=== PATIENT | male | born 1945 | race Caucasian/White ===

== ENCOUNTER 2020-01-03 14:26 | Outpatient (CLI) | payer MEDICARE, BC, SELFPAY ==
[2020-01-03 14:52] LABS: Basophils Absolute Auto 0.1 K/mm3 (0.0-0.1); Basophils Percent Auto 0.5 % (0.2-1.2); Eosinophils Absolute Auto 0.2 K/mm3 (0-0.3); Eosinophils Percent Auto 1.5 % (0-4.4); Hemoglobin 14.1 g/dL (14.0-18.0); Immature Granulocyte Absolute 0.04 K/mm3 (0.00-0.031); Immature Granulocyte Percent A 0.4 % (0-0.5); Lymphocytes Absolute Auto 2.41 K/mm3 (0.9-3.2); Mean Corpuscular Hemoglobin 29.6 pg (26-34); Mean Corpuscular Volume 92.2 fl (80-100); Mean Platelet Volume 10.6 fl (7.4-10.4); Monocytes Absolute Auto 0.9 K/mm3 (0.1-0.6); Monocytes Percent Auto 9.2 % (2.6-8.5); Neutrophils Absolute Auto 6.5 K/mm3 (1.3-6.7); Neutrophils Percent Auto 64.4 % (45.5-73.1); Platelet Count Result 142 k/mm3 (150-375); Red Blood Count 4.77 M/mm3 (4.6-6.20); Red Cell Distribution Width 13.8 % (11.5-14.5)
[2020-01-03 16:39] LABS: INR 3.1; Prothrombin Time 31.6 Seconds (11.1-14.7)
[2020-01-03 16:40] LABS: Partial Thromboplastin Time 36.3 SECONDS (22.3-36.8)
[2020-01-03 16:54] LABS: Alanine Aminotransferase 15 U/L (4-50); Albumin Level 3.8 g/dL (3.5-5.1); Alkaline Phosphatase 65 U/L (38-126); Aspartate Amino Transferase 19 U/L (17-59); Bilirubin,Total 0.3 mg/dL (0.2-1.3); Blood Urea Nitrogen 16 mg/dL (9-20); Calcium 8.7 mg/dL (8.4-10.2); Carbon Dioxide 29 mmol/L (22-30); Chloride 105 mmol/L (98-107); Estimated Glomerular Filt Rate > 60; Glucose 98 mg/dL (75-110); Potassium 4.8 mmol/L (3.4-5.0); Sodium 146 mmol/L (137-145)
== END 2020-01-03 14:27 | disposition home or self-care (01) ==
PROVIDERS: PCP Internal Medicine; Visit Provider Internal Medicine Hematology & Oncology
DX: D69.9 Hemorrhagic condition, unspecified (principal)
CPT/HCPCS: 36415; 80053; 85025; 85610; 85730

== ENCOUNTER 2020-01-09 09:20 | Outpatient (CLI) | payer MEDICARE, BC, SELFPAY ==
[2020-01-09 10:26] LABS: Prothrombin Time 13.1 Seconds (11.1-14.7)
== END 2020-01-09 09:21 | disposition home or self-care (01) ==
PROVIDERS: PCP Internal Medicine; Visit Provider Internal Medicine Gastroenterology
DX: D68.8 Other specified coagulation defects (principal)
CPT/HCPCS: 36415; 85610; 85730

== ENCOUNTER 2020-01-10 00:12 | Day surgery (SDC) | payer MEDICARE, BC, SELFPAY ==
[2020-01-05 13:47] VITALS: BMI 41.8
[2020-01-10 07:00] VITALS: BP 181/72; PULSE 59; RESP 18; TEMP 37.1; O2SAT 92
--- NOTE | 2020-01-10 07:04 | PM.HPGS ---
History of Present Illness History of Present Illness Consent: Risks, benefits, and alternatives have been discussed and questions answered. Patient agrees to proceed with procedure. Chief complaint: Gerd/ Hx Colon Polyps Narrative: Dhaval Cox is a 74 year old W male referred for gastroscopy secondary to history of chronic heartburn and has had previous diagnosis of Gaxiola's metaplasia. However last gastroscopy 2015 was negative for Gaxiola's. Patient's symptoms are controlled on Nexium. Denies any dysphagia. Patient is undergoing a colonoscopy secondary history of colonic polyps and his last colonoscopy was in 2012. Patient has had multiple medical problems which time he has deferred follow-up colonoscopy. Patient's most recent evaluations pulmonary in nature for evaluation hemoptysis. [facility] Surgical History Surgical History (Updated 01/10/20 @ 07:08 by Chris Toledo MD) History of sinus surgery Status post appendectomy Status post cholecystectomy Status post laparoscopic fundoplication Family History Family History Father Family history of lung disease, Onset Age: 84 Patient's father is , Onset Age: 84 Mother Family history of heart disease in male family member before age 55 Patient's mother is , Onset Age: 64 Family history of cardiovascular disease, Onset Age: 64 Social History Social History Smoking status: Former smoker Smoking end date: 11/15/04 Alcohol intake: current Meds Home Medications and Allergies Home Medications Medication Instructions Recorded Confirmed Type candesartan 32 mg tablet 32 mg PO DAILY 09/11/19 01/05/20 History etanercept 50 mg/mL (1 mL) 50 mg SUB-Q WEEKLY 09/11/19 01/05/20 History subcutaneous syringe furosemide 40 mg tablet 40 mg PO DAILY tablet 09/11/19 01/05/20 History gabapentin 300 mg capsule 300 mg PO TID 09/11/19 01/05/20 History hydrocodone 10 mg-acetaminophen 1 tablet PO Q6H PRN 09/11/19 01/05/20 History 325 mg tablet felodipine 10 mg tablet,extended 10 mg PO DAILY #90 tablet 10/09/19 01/05/20 Rx release 24 hr linagliptin 5 mg tablet 5 mg PO DAILY #90 tablet 10/16/19 01/05/20 Rx warfarin 5 mg tablet 5 mg PO DAILY tablet 11/17/19 01/05/20 History esomeprazole magnesium 40 mg 40 mg PO DAILY #90 cap 12/13/19 01/05/20 Rx capsule,delayed release pravastatin 20 mg tablet 20 mg PO DAILY #90 tablet 12/13/19 01/05/20 Rx metoprolol succinate 100 mg 100 mg PO DAILY #90 tablet 01/09/20 Rx tablet,extended release 24 hr Allergies Allergy/AdvReac Type Severity Reaction Status Date / Time No Known Allergies Allergy Verified 01/10/20 07:03 Exam Const: Orientation/consciousness: patient oriented x3 Resp: Auscultation: clear to auscultation bilaterally Cardio: Rate: regular rate Rhythm: regular rhythm Heart sounds: no murmurs GI: GI Palp: Yes Soft to palpation, No Tenderness to palpation present (GI), Yes No hepatosplenomegaly present and No Palpable mass present Auscultation: normal bowel sounds Neuro: General: patient oriented x3 and no focal motor deficits Extrem: General: no pedal edema Assessment and Plan Additional Plan gastroscopy for follow-up of Gaxiola's metaplasia screening colonoscopy secondary history of colonic polyps
--- NOTE | 2020-01-10 07:20 | WPDANESEPPF ---
Anes - Initial Pre Proc Eval Procedure: Operation Date: 01/10/20 08:00 Proposed Procedures p Esophagogastroduodenoscopy & Screening Colonoscopy - Chris Toledo MD Date/Time: 01/10/20 07:20 Surgeon: Chris Toledo MD Pre Op Diagnosis: Gerd/ Hx Colon Polyps Patient Data Age: 74 Gender: M Height: 6 ft Weight: 143.9 kg Allergies Allergy/AdvReac Type Severity Reaction Status Date / Time No Known Allergies Allergy Verified 01/10/20 07:03 Home Medications Medication Instructions Recorded Confirmed Type candesartan 32 mg tablet 32 mg PO DAILY 09/11/19 01/05/20 History etanercept 50 mg/mL (1 mL) 50 mg SUB-Q WEEKLY 09/11/19 01/05/20 History subcutaneous syringe furosemide 40 mg tablet 40 mg PO DAILY tablet 09/11/19 01/05/20 History gabapentin 300 mg capsule 300 mg PO TID 09/11/19 01/05/20 History hydrocodone 10 mg-acetaminophen 1 tablet PO Q6H PRN 09/11/19 01/05/20 History 325 mg tablet felodipine 10 mg tablet,extended 10 mg PO DAILY #90 tablet 10/09/19 01/05/20 Rx release 24 hr linagliptin 5 mg tablet 5 mg PO DAILY #90 tablet 10/16/19 01/05/20 Rx warfarin 5 mg tablet 5 mg PO DAILY tablet 11/17/19 01/05/20 History esomeprazole magnesium 40 mg 40 mg PO DAILY #90 cap 12/13/19 01/05/20 Rx capsule,delayed release pravastatin 20 mg tablet 20 mg PO DAILY #90 tablet 12/13/19 01/05/20 Rx metoprolol succinate 100 mg 100 mg PO DAILY #90 tablet 01/09/20 Rx tablet,extended release 24 hr Patient hx anesthesia problems: none Family hx anesthesia problems: none PMFSH Surgical History Surgical History History of sinus surgery Status post appendectomy Status post cholecystectomy Status post laparoscopic fundoplication Family History Family History Father Family history of lung disease, Onset Age: 84 Patient's father is , Onset Age: 84 Mother Family history of heart disease in male family member before age 55 Patient's mother is , Onset Age: 64 Family history of cardiovascular disease, Onset Age: 64 Social History Social History Smoking status: Former smoker Smoking end date: 11/15/04 Alcohol intake: current Anes - Eval Final PreProcedure Day of Procedure 01/10/20 07:20 Patient weight: morbidly obese Heart: regular rate and rhythm Lungs: clear to auscultation Airway: Mallampati scale class II Neurological: alert and oriented Last oral intake: >/= 8 hours ASA classification: III Emergent: no Anesthetic plan: proceed Anesthesia type and monitoring: general GIVS and standard monitoring Informed Consent: The patient's anesthetic plan and its attendant risks and benefits were discussed with the patient/family/POA. Questions were solicited and answers provided to the satisfaction of the patient/family/POA.
[2020-01-10 07:35] LABS: Glucose Point of Care 84 (65-105)
[2020-01-10] MEDS: LACTATED RINGERS 1,000 ML 150 ML IV CONT (07:38)
[2020-01-10] MEDS: BENZOCAINE (*SP) 60 ML SPRAY CAN (HURRICAINE) 1 SPRAY MUCOUS MEM (07:47)
[2020-01-10] MEDS: SIMETHICONE ORAL SUSPENSION 20 MG/0.3 ML 30 ML BOTTLE 0.6 ML IRRIGATION (07:50)
[2020-01-10 08:16] VITALS: BP 164/54; PULSE 55; RESP 23; O2SAT 97
[2020-01-10 08:26] VITALS: BP 121/58; PULSE 63; RESP 28; O2SAT 93
[2020-01-10 08:36] VITALS: BP 121/38; PULSE 54; RESP 21; O2SAT 93
== END 2020-01-10 08:52 | disposition home or self-care (01) ==
PROVIDERS: PCP Internal Medicine; Visit Provider Internal Medicine Gastroenterology
PROC: 0DJ08ZZ Inspection of Upper Intestinal Tract, Via Natural or Artificial Opening Endoscopic (ICD-10-PCS; CPT 43235; principal; 2020-01-10 08:00)
DX: Z12.11 Encounter for screening for malignant neoplasm of colon (principal); K64.8 Other hemorrhoids; K64.4 Residual hemorrhoidal skin tags; K57.30 Diverticulosis of large intestine without perforation or abscess without bleeding; Z86.010 Personal history of colon polyps; K21.0 Gastro-esophageal reflux disease with esophagitis; K29.50 Unspecified chronic gastritis without bleeding; Z87.19 Personal history of other diseases of the digestive system; Z87.891 Personal history of nicotine dependence; Z79.01 Long term (current) use of anticoagulants; E66.01 Morbid (severe) obesity due to excess calories; Z68.41 Body mass index [BMI] 40.0-44.9, adult
CPT/HCPCS: 43239; G0105; 88305; J2704; J7120

== ENCOUNTER 2020-01-16 08:34 | Outpatient (CLI) | payer MEDICARE, BC, SELFPAY ==
--- NOTE | ~2020-01-16 | US_ITS ---
EXAMINATION: US venous doppler LE RT DATE: 01/16/2020 09:25 INDICATION: Acute right lower limb deep vein thrombosis. TECHNIQUE: Grayscale ultrasound images without and with compression and Doppler ultrasound images of the right lower extremity veins were obtained. COMPARISON: None. FINDINGS: The visualized portions of right common femoral vein, profunda (deep) femoral vein, femoral vein, pop liteal vein, peroneal veins, posterior tibial veins, and greater saphenous vein outflow are patent. IMPRESSION: 1. No deep venous thrombosis. Reviewed, dictated and finalized at location A. 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
== END 2020-01-16 08:35 | disposition home or self-care (01) ==
PROVIDERS: PCP Internal Medicine; Visit Provider Internal Medicine Hematology & Oncology
DX: I82.4Y1 Acute embolism and thrombosis of unspecified deep veins of right proximal lower extremity (principal)
CPT/HCPCS: 93971

== ENCOUNTER 2020-04-25 11:01 | Outpatient (CLI) | payer MEDICARE, BC, SELFPAY ==
[2020-04-25 11:19] LABS: Basophils Absolute Auto 0.1 K/mm3 (0.0-0.1); Basophils Percent Auto 0.6 % (0.2-1.2); Eosinophils Absolute Auto 0.2 K/mm3 (0-0.3); Eosinophils Percent Auto 1.9 % (0-4.4); Hematocrit 45.2 % (42.0-52.0); Hemoglobin 14.2 g/dL (14.0-18.0); Immature Granulocyte Absolute 0.03 K/mm3 (0.00-0.031); Immature Granulocyte Percent A 0.3 % (0-0.5); Lymphocytes Absolute Auto 2.65 K/mm3 (0.9-3.2); Lymphocytes Percent Auto 28.5 % (18.3-44.2); Mean Corpuscular HGB Conc 31.4 g/dl (32-36); Mean Corpuscular Hemoglobin 29.8 pg (26-34); Mean Corpuscular Volume 94.8 fl (80-100); Mean Platelet Volume 10.3 fl (7.4-10.4); Monocytes Percent Auto 10.2 % (2.6-8.5); Neutrophils Absolute Auto 5.4 K/mm3 (1.3-6.7); Neutrophils Percent Auto 58.5 % (45.5-73.1); Platelet Count Result 150 k/mm3 (150-375); Red Blood Count 4.77 M/mm3 (4.6-6.20); Red Cell Distribution Width 13.5 % (11.5-14.5); White Blood Count 9.3 K/mm3 (4.5-10.0)
[2020-04-25 12:06] LABS: Alanine Aminotransferase 15 U/L (4-50); Alkaline Phosphatase 61 U/L (38-126); Aspartate Amino Transferase 18 U/L (17-59); Bilirubin,Total 0.5 mg/dL (0.2-1.3); Blood Urea Nitrogen 18 mg/dL (9-20); Carbon Dioxide 31 mmol/L (22-30); Chloride 107 mmol/L (98-107); Estimated Glomerular Filt Rate > 60; Glucose 100 mg/dL (75-110); Potassium 4.7 mmol/L (3.4-5.0); Sodium 143 mmol/L (137-145)
[2020-04-25 12:17] LABS: Hemoglobin A1C 5.6 % (<5.7)
== END 2020-04-25 11:02 | disposition home or self-care (01) ==
PROVIDERS: PCP Internal Medicine; Visit Provider Internal Medicine Hematology & Oncology
DX: I82.4Y1 Acute embolism and thrombosis of unspecified deep veins of right proximal lower extremity (principal); I10 Essential (primary) hypertension; E11.8 Type 2 diabetes mellitus with unspecified complications
CPT/HCPCS: 36415; 80053; 83036; 85025

== ENCOUNTER 2020-11-19 14:20 | Outpatient (CLI) | payer MEDICARE, BC, SELFPAY ==
[2020-11-19 14:45] LABS: Basophils Absolute Auto 0.1 K/mm3 (0.0-0.1); Basophils Percent Auto 0.5 % (0.2-1.2); Eosinophils Absolute Auto 0.2 K/mm3 (0-0.3); Eosinophils Percent Auto 1.9 % (0-4.4); Hematocrit 43.4 % (42.0-52.0); Hemoglobin 13.7 g/dL (14.0-18.0); Immature Granulocyte Absolute 0.04 K/mm3 (0.00-0.031); Immature Granulocyte Percent A 0.4 % (0-0.5); Lymphocytes Absolute Auto 2.69 K/mm3 (0.9-3.2); Mean Corpuscular HGB Conc 31.6 g/dl (32-36); Mean Corpuscular Hemoglobin 29.9 pg (26-34); Mean Corpuscular Volume 94.8 fl (80-100); Mean Platelet Volume 10.9 fl (7.4-10.4); Monocytes Absolute Auto 0.7 K/mm3 (0.1-0.6); Neutrophils Absolute Auto 5.6 K/mm3 (1.3-6.7); Neutrophils Percent Auto 60.2 % (45.5-73.1); Platelet Count Result 164 k/mm3 (150-375); Red Blood Count 4.58 M/mm3 (4.6-6.20); Red Cell Distribution Width 13.8 % (11.5-14.5); White Blood Count 9.3 K/mm3 (4.5-10.0)
[2020-11-19 16:09] LABS: Anion Gap 6 mmol/L (8-16); Blood Urea Nitrogen 21 mg/dL (9-20); Calcium 8.8 mg/dL (8.4-10.2); Carbon Dioxide 29 mmol/L (22-30); Chloride 110 mmol/L (98-107); Estimated Glomerular Filt Rate > 60; Glucose 107 mg/dL (75-110); Potassium 4.8 mmol/L (3.4-5.0); Sodium 145 mmol/L (137-145)
== END 2020-11-19 14:21 | disposition home or self-care (01) ==
LOC: ANHLAB 14:22
PROVIDERS: PCP Internal Medicine; Visit Provider Internal Medicine Hematology & Oncology
DX: I82.4Y1 Acute embolism and thrombosis of unspecified deep veins of right proximal lower extremity (principal)
CPT/HCPCS: 36415; 80048; 85025

== ENCOUNTER 2021-02-24 08:04 | Outpatient (CLI) | payer MEDICARE, BC, SELFPAY ==
--- NOTE | ~2021-02-24 | US_ITS ---
EXAMINATION: US retroperitoneal duplex ltd EXAM DATE: 02/24/2021 09:23 INDICATION: Essential hypertension. TECHNIQUE: Multiple grayscale and Doppler images of the kidneys and renal arteries were obtained. T here is no prior study for comparison. FINDINGS: Exam was limited from patient's body habitus. There are bilateral renal cysts. The aorta peak systolic velocity is 170 cm/s. Renal arteries interrogated in several segments from origin to hilum. RIGHT RENAL ARTERY Proximal segment: 136 cm/s. Mid segment: 139 cm/s. Distal segment: 174 cm/s. LEFT RENAL ARTERY Proximal segment: 137 cm/s. Mid segment: 147 cm/s. Distal segment: 76 cm/s. IMPRESSION: Renal artery Doppler velocities within normal limits. Reviewed, dictated and finalized at location A.
== END 2021-02-24 08:05 | disposition home or self-care (01) ==
LOC: ANHIMG 08:07
PROVIDERS: PCP Internal Medicine; Visit Provider Nurse Practitioner
DX: I10 Essential (primary) hypertension (principal)
CPT/HCPCS: 93976

== ENCOUNTER 2021-11-19 13:10 | Outpatient (CLI) | payer MEDICARE, BC, SELFPAY ==
[2021-11-19 13:31] LABS: Basophils Absolute Auto 0.1 K/mm3 (0.0-0.1); Basophils Percent Auto 0.6 % (0.2-1.2); Eosinophils Absolute Auto 0.1 K/mm3 (0-0.3); Eosinophils Percent Auto 1.4 % (0-4.4); Hematocrit 43.9 % (42.0-52.0); Hemoglobin 13.5 g/dL (14.0-18.0); Immature Granulocyte Absolute 0.06 K/mm3 (0.00-0.031); Immature Granulocyte Percent A 0.7 % (0-0.5); Lymphocytes Absolute Auto 2.43 K/mm3 (0.9-3.2); Lymphocytes Percent Auto 28.1 % (18.3-44.2); Mean Corpuscular HGB Conc 30.8 g/dl (32-36); Mean Corpuscular Hemoglobin 30.1 pg (26-34); Mean Platelet Volume 10.7 fl (7.4-10.4); Monocytes Absolute Auto 0.7 K/mm3 (0.1-0.6); Neutrophils Absolute Auto 5.3 K/mm3 (1.3-6.7); Neutrophils Percent Auto 61.2 % (45.5-73.1); Platelet Count Result 169 k/mm3 (150-375); Red Blood Count 4.48 M/mm3 (4.6-6.20); Red Cell Distribution Width 13.4 % (11.5-14.5); White Blood Count 8.7 K/mm3 (4.5-10.0)
[2021-11-19 13:36] LABS: Blood Urea Nitrogen 22 mg/dL (8-26); Carbon Dioxide 28 mmol/L (22-30); Chloride 108 mmol/L (98-109); Estimated Glomerular Filt Rate 59; Glucose 109 mg/dL (70-105); Potassium 4.8 mmol/L (3.5-4.9); Sodium 147 mmol/L (138-146)
[2021-11-19 13:36] LABS: Atypical Lymphocytes Present; Platelet Estimate Adequate (Adequate)
[2021-11-19 15:05] LABS: Alanine Aminotransferase 15 U/L (4-50); Albumin Level 4.3 g/dL (3.5-5.1); Alkaline Phosphatase 79 U/L (38-126); Anion Gap 10 mmol/L (8-16); Aspartate Amino Transferase 19 U/L (17-59); Bilirubin,Total 0.5 mg/dL (0.2-1.3); Blood Urea Nitrogen 20 mg/dL (9-20); Calcium 8.9 mg/dL (8.4-10.2); Carbon Dioxide 26 mmol/L (22-30); Chloride 109 mmol/L (98-107); Estimated Glomerular Filt Rate 59; Glucose 111 mg/dL (65-110); Potassium 4.9 mmol/L (3.4-5.0); Sodium 145 mmol/L (137-145)
== END 2021-11-19 13:11 | disposition home or self-care (01) ==
LOC: ANHLAB 13:12
PROVIDERS: PCP Internal Medicine; Visit Provider Internal Medicine Hematology & Oncology
DX: D69.9 Hemorrhagic condition, unspecified (principal)
CPT/HCPCS: 36415; 80053; 85025

== ENCOUNTER 2022-04-12 11:51 | Emergency (ER) | payer MEDICARE, BC, SELFPAY ==
[2022-04-12] VITALS (25 sets, daily range): BP systolic 154–187; BP diastolic 70–83; PULSE 66–94; RESP 11–31; TEMP 37; O2SAT 90–95
--- NOTE | ~2022-04-12 | XR_ITS ---
XR chest 2V DATE: 04/12/2022 13:37 INDICATION: Palpitations TECHNIQUE: PA and lateral views COMPARISON: 06/27/2019 portable AP chest FINDINGS: Heart size is within normal limits. Is aortic calcification and mild unfolding. No hilar or mediastinal enlargement is evident. No pulmonary infiltrate or consolidation, pleural effusion or pulmonary vascular congestion or pneumo thorax. Degenerative spurring of the thoracic spine. Status post cholecystectomy. IMPRESSION: No active cardiopulmonary disease Reviewed, dictated and finalized at location A.
--- NOTE | 2022-04-12 11:55 | ECG_ITS ---
Measurements Intervals [place] Rate: 89 P: 44 [place]: 169 QRS: -13 QRSD: 95 T: 46 QT: 353 QTc: 431 Interpretive Statements SINUS RHYTHM WITH SINUS ARRHYTHMIA ATRIAL PREMATURE COMPLEXES EARLY PRECORDIAL R/S TRANSITION BORDERLINE ECG Electronically Signed On 04-12-2022 15:17:36 CDT by Roberto Carbajal D.O.
--- NOTE | 2022-04-12 11:58 | ED.GENADULT ---
HPI - General Adult General Chief complaint: Arrhythmia/Palpitations Stated complaint: my heart is not beating right Time Seen by Provider: 04/12/22 11:53 History of Present Illness HPI narrative: 76-year-old male presenting to the emergency department for evaluation of intermittent irregular heartbeat. Patient states previously he has had this happen for a few beats at a time. Patient states yesterday he began having more frequent episodes where he felt for 1 to 2 minutes he was having a rapid regular heartbeat. Patient states this morning he had an episode for approximately 5 minutes that concerned him so he presented to the emergency department for evaluation. Patient feels at this time he is back in a normal rhythm and denies any complaints at this time. Patient denies any associated chest pain. Patient does have shortness of breath at baseline but states he is breathing at his baseline. Patient denies any associated nausea vomiting or diarrhea. Patient reports approximately 10 years ago he did have similar symptoms and was placed on a Holter monitor for approximately 48 hours and no irregular rhythms were noted. Patient does not have a the cardiology. Patient denies any prior history of IA. Patient did have a stress test approximately 10 years ago. Patient does have history of COPD, does not need oxygen during the day but does work oxygen at nighttime. Patient does take medications for his blood pressure including metoprolol. Patient states a few weeks ago he did have his hydralazine increased. Related Data Home Medications Medication Instructions Recorded Confirmed etanercept 50 mg/mL (1 mL) 50 mg subcut WEEKLY 09/11/19 03/17/22 subcutaneous syringe (Enbrel) hydrocodone 10 mg-acetaminophen 1 tablet PO DAILY PRN Pain 06/17/20 03/17/22 325 mg tablet rivaroxaban 10 mg tablet (Xarelto) 10 mg PO DAILY 06/17/20 03/17/22 Allergies Allergy/AdvReac Type Severity Reaction Status Date / Time No Known Allergies Allergy Verified 04/12/22 13:02 Review of Systems Review of Systems: CONSTITUTIONAL: Denies fever, chills, or sweats. EYES: Denies visual changes, redness, or discharge. ENT: Denies rhinorrhea, congestion, sore throat, or otalgia. CARDIOVASCULAR: See HPI RESPIRATORY: See HPI GASTROINTESTINAL: See HPI GENITOURINARY: Denies dysuria or hematuria. SKIN: Denies rash or itching. MUSCULOSKELETAL: Denies back pain, joint pain, or myalgia. NEUROLOGIC: Denies headache, numbness, or weakness. 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) Psoriasis Surgical History Surgical History History of sinus surgery Status post appendectomy Status post cholecystectomy Status post laparoscopic fundoplication Family History Family History Father Family history of lung disease, Onset Age: 84 Patient's father is , Onset Age: 84 Mother Family history of heart disease in male family member before age 55 Patient's mother is , Onset Age: 64 Family history of cardiovascular disease, Onset Age: 64 Social History Social History Smoking packs per day: 1.5 Smoking cigarettes per day: 30.0 Years smoked: 48 Smoking pack-years: 72.00 Smoking status: Former smoker Tobacco type: cigarettes Second hand tobacco smoke exposure: Yes Smoking end date: 11/15/04 Alcohol intake: current Drinks per week: 1 Alcohol use details: beer Substance use: ne
--- NOTE | 2022-04-12 12:02 | PC.NURSE ---
Dr. Olmedo at bedside to assess pt.
[2022-04-12 12:10] LABS: Basophils Percent Auto 0.4 % (0.2-1.2); Eosinophils Absolute Auto 0.1 K/mm3 (0-0.3); Eosinophils Percent Auto 1.3 % (0-4.4); Hemoglobin 12.3 g/dL (14.0-18.0); Immature Granulocyte Absolute 0.06 K/mm3 (0.00-0.031); Immature Granulocyte Percent A 0.8 % (0-0.5); Lymphocytes Absolute Auto 1.99 K/mm3 (0.9-3.2); Lymphocytes Percent Auto 25.3 % (18.3-44.2); Mean Corpuscular HGB Conc 30.8 g/dl (32-36); Mean Corpuscular Hemoglobin 29.9 pg (26-34); Mean Corpuscular Volume 97.3 fl (80-100); Mean Platelet Volume 10.7 fl (7.4-10.4); Monocytes Absolute Auto 0.6 K/mm3 (0.1-0.6); Neutrophils Absolute Auto 5.1 K/mm3 (1.3-6.7); Neutrophils Percent Auto 65.2 % (45.5-73.1); Platelet Count Result 133 k/mm3 (150-375); Red Blood Count 4.11 M/mm3 (4.6-6.20); Red Cell Distribution Width 13.5 % (11.5-14.5); White Blood Count 7.9 K/mm3 (4.5-10.0)
[2022-04-12 12:22] LABS: Alanine Aminotransferase 12 U/L (6-50); Albumin Level 4.1 g/dL (3.5-5.1); Alkaline Phosphatase 75 U/L (38-126); Anion Gap 4 mmol/L (8-16); Aspartate Amino Transferase 20 U/L (17-59); Bilirubin,Total 0.3 mg/dL (0.2-1.3); Blood Urea Nitrogen 26 mg/dL (9-20); Calcium 8.5 mg/dL (8.4-10.2); Carbon Dioxide 31 mmol/L (22-30); Chloride 111 mmol/L (98-107); Estimated CRCL calculation 64 ml/min; Estimated Glomerular Filt Rate 54; Glucose 99 mg/dL (65-110); Sodium 146 mmol/L (137-145)
[2022-04-12 12:33] LABS: Troponin I < 0.012 ng/mL (0.000-0.034)
[2022-04-12 12:52] LABS: Magnesium 1.5 mg/dL (1.6-2.3)
[2022-04-12] MEDS: SODIUM CHLORIDE 0.9% IV 1,000 ML 250 ML IV CONT (13:08)
--- NOTE | 2022-04-12 13:30 | PC.NURSE ---
Patient off unit to Radiology for CXR.
[2022-04-12] MEDS: MAGNESIUM SULF 1 GM/D5W 100 ML 1 GM/100 ML BAG IVPB (13:41)
[2022-04-12 14:07] LABS: INR 1.1; Prothrombin Time 13.8 Seconds (11.1-14.7)
[2022-04-12] MEDS: HYDROcodone/acetaminophen (*CRX) 10-325 MG TABLET 1 TAB PO (14:45)
[2022-04-12 15:27] LABS: Troponin I < 0.012 ng/mL (0.000-0.034)
== END 2022-04-12 17:03 | disposition home or self-care (01) ==
PROVIDERS: Emergency Provider Emergency Medicine; PCP Internal Medicine
DX: R00.2 Palpitations (principal); I10 Essential (primary) hypertension; J44.9 Chronic obstructive pulmonary disease, unspecified; Z87.891 Personal history of nicotine dependence; Z86.718 Personal history of other venous thrombosis and embolism; Z79.01 Long term (current) use of anticoagulants
CPT/HCPCS: 36415; 71046; 80053; 83735; 84484; 85025; 85610; 85730; 93005; 96361; 96365; 99284; A9270; J3475; J7030

== ENCOUNTER 2022-04-27 10:26 | Outpatient (CLI) | payer MEDICARE, BC, SELFPAY ==
--- NOTE | 2022-05-01 12:19 | WPDHOLTEREM ---
Holter/Event Monitor Holter/Event Monitor Date of procedure: 04/27/22 Holter/Event Procedure: 48 Hr Holter Monitor Indications: Palpitations Conclusion: 1. 48 hour holter monitor on 04/27/22. 2. Predominant rhythm is sinus rhythm. HR range 41-108 bpm; average HR 56 bpm. 3. There are 7,519 premature supraventricular complexes, 92 supraventricular couplets, 2,141 supraventricular bigeminy, 238 supraventricular trigeminy. There are 7 episodes of atrial tachycardia, fastest at 132 bpm and longest lasting 5 beats. 4. There are 18 premature ventricular complexes. No ventricular tachycardia. 5. No sinoatrial or atrioventricular blocks. No significant pauses greater than 2 seconds. 6. Patient reports symptoms of possible palpitations which demonstrate sinus rhythm, HR range 49-59 bpm with 2 out of 3 episodes with PVC's.
== END 2022-04-27 10:27 | disposition home or self-care (01) ==
LOC: ANHCARD 10:32
PROVIDERS: PCP Internal Medicine; Visit Provider Internal Medicine
DX: R00.2 Palpitations (principal)
CPT/HCPCS: 93225

== ENCOUNTER 2022-11-19 13:14 | Outpatient (CLI) | payer MEDICARE, BC, SELFPAY ==
[2022-11-19 13:31] LABS: Basophils Percent Auto 0.4 % (0.2-1.2); Eosinophils Absolute Auto 0.1 K/mm3 (0-0.3); Hematocrit 38.1 % (42.0-52.0); Hemoglobin 11.7 g/dL (14.0-18.0); Immature Granulocyte Absolute 0.04 K/mm3 (0.00-0.031); Immature Granulocyte Percent A 0.6 % (0-0.5); Lymphocytes Absolute Auto 2.35 K/mm3 (0.9-3.2); Mean Corpuscular HGB Conc 30.7 g/dl (32-36); Mean Corpuscular Hemoglobin 29.2 pg (26-34); Mean Platelet Volume 9.6 fl (7.4-10.4); Monocytes Absolute Auto 0.6 K/mm3 (0.1-0.6); Platelet Count Result 143 k/mm3 (150-375); Red Blood Count 4.01 M/mm3 (4.6-6.20); Red Cell Distribution Width 13.2 % (11.5-14.5); White Blood Count 7.1 K/mm3 (4.5-10.0)
[2022-11-19 13:36] LABS: Blood Urea Nitrogen 26 mg/dL (8-26); Carbon Dioxide 31 mmol/L (22-30); Chloride 104 mmol/L (98-109); Estimated Glomerular Filt Rate 50; Glucose 97 mg/dL (70-105); Ionized Calcium (POC) 1.12 mmol/L (1.11-1.31); Potassium 4.6 mmol/L (3.5-4.9); Sodium 145 mmol/L (138-146)
== END 2022-11-19 13:15 | disposition home or self-care (01) ==
PROVIDERS: PCP Internal Medicine; Visit Provider Internal Medicine Hematology & Oncology
DX: D69.9 Hemorrhagic condition, unspecified (principal)
CPT/HCPCS: 36415; 80047; 85025

== ENCOUNTER 2023-05-29 09:27 | Outpatient (CLI) | payer MEDICARE, BC, SELFPAY ==
--- NOTE | ~2023-05-29 | XR_ITS ---
XR lumbar spine 2-3V DATE: 05/29/2023 09:51 INDICATION: Lumbar radiculopathy TECHNIQUE: AP, lateral, coned lateral lumbosacral views COMPARISON: 04/01/2018 CT lumbar spine FINDINGS: Degenerative spurring of the lower thoracic spine. There is degenerative change at the lower lumbar apophyseal joints with associated minimal grade 1 an terolisthesis at L4-5. There is moderate degenerative disease at L1-2, mild to moderate degenerative disease at L3-4 and L4- 5. No fracture or bone destruction is detected. The lumbar pedicles are intact. The sacroiliac joints ar e intact. IMPRESSION: Mild to moderate degenerative disease Minimal grade 1 anterolisthesis at L4-5 due to degenerative change at the apophyseal joints Reviewed, dictated and finalized at location A. IMPRESSION: Mild to moderate degenerative disease Minimal grade 1 anterolisthesis at L4-5 due to degenerative change at the apoph yseal joints
== END 2023-05-29 09:28 | disposition home or self-care (01) ==
LOC: ANHIMG 09:32
PROVIDERS: PCP Family Medicine; Visit Provider Nurse Practitioner Family
DX: M54.16 Radiculopathy, lumbar region (principal); M51.36 Other intervertebral disc degeneration, lumbar region
CPT/HCPCS: 72100

== ENCOUNTER 2023-07-07 14:45 | Outpatient (CLI) | payer MEDICARE, BC, SELFPAY ==
--- NOTE | ~2023-07-07 | US_ITS ---
EXAMINATION: US venous doppler LE RT DATE: 07/07/2023 15:42 INDICATION: Lower limb swelling TECHNIQUE: Grayscale ultrasound images without and with compression and Doppler ultrasound images of the right lower extremity veins were obtained. COMPARISON: 01/16/2020 and 05/21/2015 FINDINGS: The visualized portions of right common femoral vein, profunda (deep) femoral vein, femoral vein, per todd trunk, posterior tibial veins, peroneal veins, gastrocnemius vein and greater saphenous vein ou tflow are patent. The right popliteal vein is partially compressible with nonocclusive peripheral hyp oechoic thrombus with well-defined thin linear echogenic margins consistent with chronic thrombus. Th is identical as seen on study from 05/21/2015 as well as upon further review on the study from 01/16/2020 IMPRESSION: 1. Small amount of chronic nonocclusive deep venous thrombosis in the right popliteal vein which is been present since 2013. No new deep venous thrombosis in the right lower limb. Reviewed, dictated and finalized at location A. IMPRESSION: 1. Small amount of chronic nonocclusive deep venous thrombosis in the right po pliteal vein which is been present since 2013. No new deep venous thrombosis in the right lower limb.
== END 2023-07-07 14:46 | disposition home or self-care (01) ==
PROVIDERS: PCP Family Medicine; Visit Provider Nurse Practitioner
DX: R60.9 Edema, unspecified (principal); M79.604 Pain in right leg; I82.431 Acute embolism and thrombosis of right popliteal vein
CPT/HCPCS: 93971

== ENCOUNTER 2023-08-23 12:45 | Outpatient (CLI) | payer MEDICARE, BC, SELFPAY ==
--- NOTE | ~2023-08-23 | MR_ITS ---
EXAMINATION: MR lower leg RT wo con DATE: 08/23/2023 13:32 INDICATION: Right lower leg pain TECHNIQUE: Magnetic resonance imaging (MRI) of the right lower leg was performed without intravenous contrast. Sequences included axial, sagittal and coronal T1-weighted FSE and fluid sensitive FSE STI R. The contralateral left lower leg is included on the coronal images. COMPARISON: None. FINDINGS: Normal bone marrow signal throughout with no reactive edema, fracture or pathologic marrow replacing process. No periostitis. There is diffuse soft tissue edema involving both the subcutaneous tissues a s well as the musculature which appears relatively symmetric throughout both lower legs. No abscess o r other discrete a loculated fluid collections. IMPRESSION: 1. Prominent relatively symmetric nonspecific soft tissue edema involving both the subcutaneous tissu es and in the deeper musculature at the bilateral lower legs. No abscess or osseous abnormality. Reviewed, dictated and finalized at location A. IMPRESSION: 1. Prominent relatively symmetric nonspecific soft tissue edema involving both the subcutaneous tissues and in the deeper musculature at the bilateral lower l egs. No abscess or osseous abnormality.
== END 2023-08-23 12:46 | disposition home or self-care (01) ==
LOC: ANHIMG 12:46
PROVIDERS: PCP Family Medicine; Visit Provider Family Medicine
DX: M79.661 Pain in right lower leg (principal); R60.9 Edema, unspecified
CPT/HCPCS: 73718

== ENCOUNTER 2023-08-24 09:22 | Outpatient (CLI) | payer MEDICARE, BC, SELFPAY ==
[2023-08-24 09:38] LABS: Basophils Percent Auto 0.4 % (0.2-1.2); Eosinophils Absolute Auto 0.1 K/mm3 (0-0.3); Eosinophils Percent Auto 2.5 % (0-4.4); Hematocrit 32.3 % (42.0-52.0); Hemoglobin 9.5 g/dL (14.0-18.0); Immature Granulocyte Absolute 0.05 K/mm3 (0.00-0.031); Lymphocytes Absolute Auto 1.64 K/mm3 (0.9-3.2); Lymphocytes Percent Auto 31.5 % (18.3-44.2); Mean Corpuscular HGB Conc 29.4 g/dl (32-36); Mean Corpuscular Hemoglobin 28.3 pg (26-34); Mean Corpuscular Volume 96.1 fl (80-100); Mean Platelet Volume 9.9 fl (7.4-10.4); Monocytes Absolute Auto 0.6 K/mm3 (0.1-0.6); Monocytes Percent Auto 10.7 % (2.6-8.5); Neutrophils Absolute Auto 2.8 K/mm3 (1.3-6.7); Neutrophils Percent Auto 53.9 % (45.5-73.1); Platelet Count Result 128 k/mm3 (150-375); Red Blood Count 3.36 M/mm3 (4.6-6.20); Red Cell Distribution Width 14.7 % (11.5-14.5); White Blood Count 5.2 K/mm3 (4.5-10.0)
[2023-08-24 09:44] LABS: Hypochromasia 1+ (NORMAL); Platelet Estimate Decreased (Adequate); Schistocytes None Seen (NORMAL)
[2023-08-24 11:04] LABS: Iron 62 ug/dL (49-181)
[2023-08-24 11:05] LABS: Alanine Aminotransferase 12 U/L (6-50); Alkaline Phosphatase 75 U/L (38-126); Anion Gap 8 mmol/L (8-16); Aspartate Amino Transferase 14 U/L (17-59); Bilirubin,Total 0.7 mg/dL (0.2-1.3); Blood Urea Nitrogen 36 mg/dL (9-20); Calcium 8.3 mg/dL (8.4-10.2); Carbon Dioxide 27 mmol/L (22-30); Chloride 107 mmol/L (98-107); Estimated Glomerular Filt Rate 33; Glucose 96 mg/dL (65-110); Potassium 4.9 mmol/L (3.4-5.0); Sodium 142 mmol/L (137-145)
[2023-08-24 11:14] LABS: Percent Iron Saturation 22 % (20-50)
== END 2023-08-24 09:23 | disposition home or self-care (01) ==
LOC: ANHLAB 09:25
PROVIDERS: PCP Family Medicine; Visit Provider Internal Medicine Hematology & Oncology
DX: D64.9 Anemia, unspecified (principal)
CPT/HCPCS: 36415; 80053; 82607; 82728; 83540; 83550; 85025

== ENCOUNTER 2023-09-21 16:35 | Outpatient (CLI) | payer MEDICARE, BC, SELFPAY ==
--- NOTE | ~2023-09-21 | US_ITS ---
Renal-Bladder ultrasound Clinical History: Abnormal renal function Technique: Real-time sonographic imaging of the kidneys and urinary bladder was performed. Findings: The right kidney measures 12.1 cm in length and the left kidney measures 11.1 cm. There is no hydronephrosis or renal calculus identified. Renal cortical echogenicity is within normal limits. 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 Bilateral re nal cysts are present, largest at right lower pole measuring 7.7 cm. The urinary bladder is partially distended at the time of this exam. No intraluminal echoes are ident ified. No abnormal wall thickening is seen. Impression: No significant abnormality seen. Bilateral renal cysts. Reviewed, dictated and finalized at [facility]. FEEDER Impression: No significant abnormality seen. Bilateral renal cysts.
== END 2023-09-21 16:36 | disposition home or self-care (01) ==
LOC: ANHIMG 16:37
PROVIDERS: PCP Family Medicine; Visit Provider Internal Medicine Nephrology
DX: N28.1 Cyst of kidney, acquired (principal); R94.4 Abnormal results of kidney function studies
CPT/HCPCS: 76775

== ENCOUNTER 2023-10-21 09:55 | Inpatient (IN) | payer MEDICARE, BC, SELFPAY ==
[2023-10-21] VITALS (14 sets, daily range): BP systolic 164–195; BP diastolic 55–71; PULSE 57–88; RESP 16–26; TEMP 36.6–36.8; O2SAT 76–98
--- NOTE | ~2023-10-21 | CT_ITS ---
Clinical Indication: Hemoptysis CT Scan of the Chest with Contrast: Technique: Contiguous sections were acquired throughout the chest after intravenous administration of 100 cc of Omnipaque 350. Dose reduction technique was used on this scan by utilizing automated expos ure control and iterative reconstruction technique. The dose-length product (DLP) was 1076.94 mGy-cm. COMPARISON: 04/22/2023 Findings: Mildly prominent mediastinal/hilar lymph nodes are present, nonspecific. No axillary lymphadenopathy. There is no filling defect in the pulmonary arterial tree to suggest pulmonary embolus. There is no evidence of aortic dissection or aneurysm. No pericardial effusion. There is moderate bilateral pleural effusions with partial bilateral lower lobe atelectasis. Mild emp hysema present. Probable minimal ground glass pulmonary edema in the lingula. Images through the upper abdomen reveal partially imaged groundglass attenuation the mesentery with p robable shotty lymph nodes. Impression: No pulmonary embolus. Moderate bilateral pleural effusions with partial bilateral lobe atelectasis and probable pulmonary e clover, as above. Mild emphysema. 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 Reviewed, dictated and finalized at location M. DISTRIBUTOR Impression: No pulmonary embolus. Moderate bilateral pleural effusions with partial bilateral lobe atelectasis an d probable pulmonary edema, as above. Mild emphysema. 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
--- NOTE | ~2023-10-21 | XR_ITS ---
Clinical Indication: Dyspnea AP and lateral views of the chest: Comparison: 04/21/2023 Findings: Small bilateral pleural effusions are present, with mild bibasilar pulmonary edema/atelecta sis.. Cardiomediastinal silhouette is within normal limits. Bones and soft tissues are unremarkable. Impression: Probable bilateral pleural effusions with bibasilar pulmonary edema/atelectasis. Reviewed, dictated and finalized at location . ERCIAL LEASING MANAGER Impression: Probable bilateral pleural effusions with bibasilar pulmonary edema/atelectasis .
--- NOTE | 2023-10-21 09:56 | ECG_ITS ---
Measurements Intervals [place] Rate: 57 P: 38 [place]: 71 QRS: -10 QRSD: 102 T: 8 QT: 442 QTc: 433 Interpretive Statements SINUS BRADYCARDIA WITH SHORT [place] INTERVAL COMPARED TO ECG 04/21/2023 10:30:40 SINUS BRADYCARDIA NOW PRESENT Electronically Signed On 10-21-2023 19:11:11 [employer] by Amanda Gautam M.D.
[2023-10-21 10:28] LABS: Basophils Percent Auto 0.4 % (0.2-1.2); Eosinophils Absolute Auto 0.1 K/mm3 (0-0.3); Eosinophils Percent Auto 1.5 % (0-4.4); Hematocrit 33.6 % (42.0-52.0); Hemoglobin 9.6 g/dL (14.0-18.0); Immature Granulocyte Absolute 0.16 K/mm3 (0.00-0.031); Immature Platelet Fraction Pct 4.3 % (0.9-11.2); Lymphocytes Absolute Auto 1.44 K/mm3 (0.9-3.2); Lymphocytes Percent Auto 27.4 % (18.3-44.2); Mean Corpuscular HGB Conc 28.6 g/dl (32-36); Mean Corpuscular Hemoglobin 28.2 pg (26-34); Mean Corpuscular Volume 98.5 fl (80-100); Mean Platelet Volume 11.2 fl (7.4-10.4); Monocytes Absolute Auto 0.4 K/mm3 (0.1-0.6); Monocytes Percent Auto 7.8 % (2.6-8.5); Neutrophils Absolute Auto 3.2 K/mm3 (1.3-6.7); Neutrophils Percent Auto 59.9 % (45.5-73.1); Platelet Count Result 94 k/mm3 (150-375); Red Blood Count 3.41 M/mm3 (4.6-6.20); Red Cell Distribution Width 14.9 % (11.5-14.5); White Blood Count 5.3 K/mm3 (4.5-10.0)
[2023-10-21 10:38] LABS: Alanine Aminotransferase 9 U/L (6-50); Albumin Level 3.8 g/dL (3.5-5.1); Alkaline Phosphatase 81 U/L (38-126); Anion Gap 10 mmol/L (8-16); Aspartate Amino Transferase 18 U/L (17-59); Bilirubin,Total 0.7 mg/dL (0.2-1.3); Blood Urea Nitrogen 18 mg/dL (9-20); Calcium 8.3 mg/dL (8.4-10.2); Carbon Dioxide 26 mmol/L (22-30); Chloride 110 mmol/L (98-107); Estimated CRCL calculation 61 ml/min; Estimated Glomerular Filt Rate 54; Glucose 124 mg/dL (65-110); Potassium 4.4 mmol/L (3.4-5.0); Sodium 146 mmol/L (137-145)
[2023-10-21 10:42] LABS: INR 1.3; Prothrombin Time 16.3 Seconds (11.1-14.7)
[2023-10-21 10:47] LABS: NT Pro B Type Natriuretic Pept 2610 pg/mL (19.9-100)
[2023-10-21 10:50] LABS: Troponin I < 0.012 ng/mL (0.000-0.034)
[2023-10-21 10:58] LABS: Partial Thromboplastin Time 28.6 SECONDS (22.3-36.8)
[2023-10-21 11:03] LABS: Influenza A QL RT-PCR Negative (Negative); Influenza B QL RT-PCR Negative (Negative); RSV RNA, RT-PCR Negative (Negative); SARS-CoV-2 RNA PCR Negative (Negative)
[2023-10-21 11:09] LABS: Hypochromasia 1+ (NORMAL); Platelet Estimate Decreased (Adequate); Schistocytes None Seen (NORMAL)
--- NOTE | 2023-10-21 11:26 | ED.GENADULT ---
HPI - General Adult General Chief complaint: Shortness of Breath/Dyspnea Stated complaint: SOB Time Seen by Provider: 10/21/23 10:28 History of Present Illness HPI narrative: 77-year-old male presenting ED for evaluation of worsening shortness of breath. Patient states he normally has an O2 requirement with activity of 3-4 L. Patient states when he is at rest he typically does not require the oxygen. Patient reports over the course of the last month he has had increased shortness of breath. Patient reports this has acutely worsened over the course of the last week. Patient reports he was attempting to walk to the bathroom without oxygen and his pulse ox dropped to 48%. Related Data Home Medications Medication Instructions Recorded Confirmed etanercept 50 mg/mL (1 mL) 50 mg subcut WEEKLY 09/11/19 10/21/23 subcutaneous syringe (Enbrel) hydrocodone 10 mg-acetaminophen 1 tablet PO TID PRN Pain 06/17/20 10/21/23 325 mg tablet rivaroxaban 10 mg tablet (Xarelto) 10 mg PO DAILY 06/17/20 10/21/23 candesartan 32 mg tablet 32 mg PO QPM 04/21/23 10/21/23 esomeprazole magnesium 40 mg 40 mg PO QPM 04/21/23 10/21/23 capsule,delayed release felodipine 10 mg tablet,extended 10 mg PO QPM 04/21/23 10/21/23 release 24 hr mecobalamin (vitamin B12) 5,000 5,000 mcg PO QPM 04/21/23 10/21/23 mcg disintegrating tablet metoprolol succinate 100 mg 100 mg PO QPM 04/21/23 10/21/23 tablet,extended release 24 hr pravastatin 20 mg tablet 20 mg PO QPM 04/21/23 10/21/23 furosemide 40 mg tablet 40 mg PO QAM 09/14/23 10/21/23 Allergies Allergy/AdvReac Type Severity Reaction Status Date / Time No Known Allergies Allergy Verified 10/21/23 10:33 Review of Systems Review of Systems: All systems reviewed & are unremarkable except as noted in HPI and below PMFSH Past Medical History Medical History Gaxiola's esophagus with dysplasia Blood clot in eye left eye. The patient states that he has to get injections frequently. 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) Psoriasis Retinal vein occlusion of left eye Surgical History Surgical History H/O colonoscopy with polypectomy History of lung biopsy History of sinus surgery Status post appendectomy Status post cholecystectomy Status post laparoscopic fundoplication Family History Family History Father Patient's father is , Onset Age: 84 Family history of lung disease, Onset Age: 84 Acute myocardial infarction Chronic obstructive pulmonary disease Mother Family history of cardiovascular disease, Onset Age: 64 Patient's mother is , Onset Age: 64 Congestive heart failure Social History Social History Social History: The patient lives with his and he has 1 child. The patient is retired [place] [employer]. The patient used to smoke. He denies any alcohol or illicit drugs. Code status full code Smoking packs per day: 1 Smoking cigarettes per day: 20.0 Years smoked: 40 Smoking pack-years: 40.00 Smoking status: Former smoker Second hand tobacco smoke exposure: Yes Additional smoking assessment comments: quit 2004 Alcohol intake: current Drinks per week: 1 Alcohol use details: beer Substance use: never Substance use type: does not use Lack of Transportation: No Lack of Food: Never True Current Housing: I Have Housing Concerned About Future Housing: No Difficulty Paying Gas/Electric Bills: No Difficulty Paying for Meds: No Currently Unemployed: No Education: Bachelor's Degree Di
[2023-10-21] MEDS: FUROSEMIDE INJ 40 MG/4 ML VIAL IV PUSH (12:43)
[2023-10-21 12:50] LABS: Lactic Acid Reflex 0.6 mmol/L (0.7-2.0)
--- NOTE | 2023-10-21 15:05 | PM.IMHP ---
H&P: HPI History of Present Illness Date/Time: 10/21/23 15:05 Chief Complaint: SOB, Hypoxia Narrative: 77 y/o M presents here with worsening SOB, hypoxia, and increased O2 requirement with PMH of HTN, DVT, COPD, psoriasis, and Gaxiola's esophagus. Patient reports worsening shortness of breath and increased oxygen requirements for the past week. States that this was preceded by 1 month of increased cough without fever, body aches, or chills. States that he typically wears 2 L of oxygen when active and does not always required 2 L of oxygen at rest, O2 sat at rest typically 91-92%. Does use supplemental oxygen while asleep, typically 2-3 L. however recently, he noticed when he would walk to the restroom or become more active and his oxygen saturation would drop. Most recently he walked to the restroom and his oxygen dropped to 48% on 3.5 L. Reports moderate compliance with his diuretic. States that he takes his Lasix almost every day, however if he has a doctor's appointment or he has to go somewhere he will forego taking this medication due to the urinary frequency ( I go ever 15 minutes. ). States this occurs a maximum of twice a week, but there are weeks where he is compliant every day. Reports lower extremity swelling that is at its baseline and discoloration is due to psoriasis affecting both calves. Denies associated chest pain or palpitations with the shortness of breath. Today when he was making his way to the car to come to the emergency department he did have a presyncopal feeling due to the shortness of breath. Patient has chronic cough at baseline, in the past month has become more productive producing clear to brown sputum and more recently experiencing scant hemoptysis. Of note, patient was admitted for volume overload in April where his Lasix was increased from 40 mg once daily to 80 mg twice daily, however was reduced back to 40 mg once daily due to GFR reduction (60 -> 33). ED workup was negative for a pulmonary embolism and imaging showed moderate bilateral effusions and probable pulmonary edema as well as mild emphysema seen on CT. Anemia previously identified and following with [facility], stable. Renal function unchanged from prior. BNP elevated from prior, currently 2,610. Viral PCR negative. No other complaints beyond SOB voiced by the patient and A/Ox4. Review of Systems Review of Systems: All systems reviewed & are unremarkable except as noted in HPI and below PMFSH Past Medical History Medical History Gaxiola's esophagus with dysplasia Blood clot in eye left eye. The patient states that he has to get injections frequently. 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 use of anticoagulant Mixed type COPD (chronic obstructive pulmonary disease) Psoriasis Retinal vein occlusion of left eye Surgical History Surgical History H/O colonoscopy with polypectomy History of lung biopsy History of sinus surgery Status post appendectomy Status post cholecystectomy Status post laparoscopic fundoplication Family History Family History Father Patient's father is , Onset Age: 84 Family history of lung disease, Onset Age: 84 Acute myocardial infarction Chronic obstructive pulmonary disease Mother Family history of cardiovascular disease, Onset Age: 64 Patient's mother is , Onset Age: 64 Congestive heart failure Social History Social History (Updated 10/21/23 @ 18:26 by Joleen Elise, ALLEN) Social History: The patient lives with his and he has 1 child. He elects his , Rachel Cox, as his surrogate decision maker. 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 The patient used to smoke. He
--- NOTE | 2023-10-21 17:34 | ADMGEN ---
This patient, Dhaval Cox, was admitted to Medical Room 346-01. Patient/family oriented to hospital policies and general routines including ID bracelet, bed and alarms, visiting hours, pain management, procedures, bathroom and other care routines, personal items, smoking policy, room service/diet, and visiting hours. Information on how to activate the Rapid Response Team has been discussed. Patient/Family are encouraged to report perceived risks to care and to ask questions if they do not understand what they are told or what they should do.
[2023-10-21] MEDS: FELODIPINE 5 MG TAB CR 10 MG PO (20:57)
[2023-10-21] MEDS: CANDESARTAN CILEXETIL 16 MG TABLET 32 MG PO (20:57)
[2023-10-21] MEDS: hydrALAZINE HCL 50 MG TABLET PO (20:58)
[2023-10-21] MEDS: guanFACINE HCL 1 MG TABLET PO (20:58)
[2023-10-21] MEDS: FUROSEMIDE 40 MG TABLET PO (20:58)
[2023-10-21] MEDS: PRAVASTATIN SODIUM 20 MG TABLET PO (20:58)
[2023-10-21] MEDS: METOPROLOL SUCCINATE EXT REL 100 MG TABCR PO (20:58)
[2023-10-21] MEDS: GABAPENTIN 300 MG CAPSULE PO (21:02)
[2023-10-21] MEDS: TRIAMCINOLONE ACET 0.5% OINT 15 GM TUBE 1 APPLIC TOPICAL (21:02)
[2023-10-21 21:03] LABS: Glucose Point of Care 98 mg/dl (65-105)
[2023-10-21 22:46] LABS: Alveolar/Arterial O2 Gradient 246.9 mmHg; Base Excess ABG 6.6 mEq/l (+/-2.0); Fractional Inspired Oxygen 44 %; HCO3 ABG 32.6 mEq/l (22.0-26.0); Oxygen Content ABG 13.5 %vol (16.0-22.0); Oxygen Saturation ABG 93.8 % (95.0-100.0); Oxyhemoglobin 92.8 % THb (90.0-100.0); PCO2 ABG 54.2 mmHg (35.0-45.0); PO2 ABG 70.4 mmHg (80.0-100.0); Total Hemoglobin 10.3 g/dL (12.0-18.0); pH ABG 7.397 (7.350-7.450)
[2023-10-21 22:51] LABS: Modified Allen's Test Pass; Site Drawn LEFT RADIAL
[2023-10-21 22:52] LABS: Device HIGH FLOW NASAL CANN
[2023-10-22] VITALS (12 sets, daily range): BP systolic 166–173; BP diastolic 57–71; PULSE 54–87; RESP 16–26; TEMP 36.6–37; O2SAT 93–96
--- NOTE | 2023-10-22 | ECHO_ITS ---
Patient Info Name: Dhaval Cox Age: 77 years : 1945 Gender: Male Ht: 72 in Wt: 286 lbs BSA: 2.62 m2 HR: 58 bpm BP: 189 / 57 mmHg Heart Rhythm: Sinus Rhythm Technical Quality: Fair Exam Date: 10/22/2023 10:37 AM Exam Location: Echo Lab Exam Room: [facility] Patient Status: Inpatient Admit Date: 10/21/2023 Staff Ordering Physician: Joleen Elise APRN Oil Producer: Mone Mack RDCS Attending Provider: Maria Teresa Acevedo MD Referring Physician: Gosia RICE; Exam Type: CA echo dop color flow w con Study Info Indications - ELEVATED BNP SOB HYPOXIA Complete two-dimensional, color flow and Doppler transthoracic echocardiogram is performed with contrast to opacify the left ventricle and to improve the deliniation of the left ventricle endocardial borders. Contrast/Agitated Saline Contrast/Ag. Saline: Definity Amount: 3.00 ml Administered By: Mone Mack [facility] Existing IV Access: Yes IV Access Condition: patent with no signs of infiltration Summary 1. Technically challenging exam because of obesity. 2. Definity contrast utilized to improve exam quality. 3. Mild left atrial enlargement. 4. Mildly sclerotic but not stenotic aortic valve. 5. Left ventricular hypertrophy with preserved systolic function and grade 1 diastolic noncompliance. 6. Compared with examination from April of this year the findings are unchanged. Left Ventricle Left ventricular chamber dimension is normal. Left ventricular systolic function is normal, estimated at 60-65%. There is mild concentric increased left ventricular wall thickness. The left ventricular diastolic function is grade I diastolic dysfunction. Right Ventricle Right ventricular chamber dimension is normal. Left Atria Left atrial chamber dimension is mildly enlarged. Right Atria Right atrial chamber dimension is normal. Aortic Valve The aortic valve is trileaflet. There is mild aortic valve sclerosis. Pulmonic Valve The pulmonic valve is not well visualized. Mitral Valve The mitral valve has normal leaflets. Tricuspid Valve The tricuspid valve leaflets are normal. Pericardium/Pleural The pericardium appears normal. Aorta The aortic root size at the sinus of Valsalva is normal. Left Ventricular Outflow Tract Name Value Normal LVOT 2D LVOT Diameter 2.24 cm LVOT Doppler LVOT Peak Gradient 6 mmHg LVOT Mean Gradient 3 mmHg LVOT VTI 26.80 cm LVOT VTI/AV VTI Ratio 0.81 LVOT Stroke Volume 105.61 ml LVOT CO 18.92 l/min LVOT CI 7.22 L/min/m2 Pulmonic Valve Name Value Normal PV Doppler PV Peak Gradient 6 mmHg Mitral Valve Name
[2023-10-22] MEDS: TRIAMCINOLONE ACET 0.5% OINT 15 GM TUBE 1 APPLIC TOPICAL ×3 (05:36→21:47)
[2023-10-22 05:46] LABS: Basophils Percent Auto 0.4 % (0.2-1.2); Eosinophils Absolute Auto 0.1 K/mm3 (0-0.3); Eosinophils Percent Auto 2.5 % (0-4.4); Hemoglobin 8.8 g/dL (14.0-18.0); Immature Granulocyte Absolute 0.09 K/mm3 (0.00-0.031); Immature Platelet Fraction Pct 4.9 % (0.9-11.2); Lymphocytes Absolute Auto 1.23 K/mm3 (0.9-3.2); Lymphocytes Percent Auto 27.6 % (18.3-44.2); Mean Corpuscular HGB Conc 28.4 g/dl (32-36); Mean Corpuscular Hemoglobin 27.7 pg (26-34); Mean Corpuscular Volume 97.5 fl (80-100); Monocytes Absolute Auto 0.4 K/mm3 (0.1-0.6); Monocytes Percent Auto 8.7 % (2.6-8.5); Neutrophils Absolute Auto 2.6 K/mm3 (1.3-6.7); Neutrophils Percent Auto 58.8 % (45.5-73.1); Platelet Count Result 91 k/mm3 (150-375); Red Blood Count 3.18 M/mm3 (4.6-6.20); Red Cell Distribution Width 14.7 % (11.5-14.5); White Blood Count 4.5 K/mm3 (4.5-10.0)
[2023-10-22 05:56] LABS: Alanine Aminotransferase 9 U/L (6-50); Albumin Level 3.6 g/dL (3.5-5.1); Alkaline Phosphatase 82 U/L (38-126); Anion Gap 6 mmol/L (8-16); Aspartate Amino Transferase 18 U/L (17-59); Bilirubin,Total 0.9 mg/dL (0.2-1.3); Blood Urea Nitrogen 16 mg/dL (9-20); Calcium 8.5 mg/dL (8.4-10.2); Carbon Dioxide 32 mmol/L (22-30); Chloride 107 mmol/L (98-107); Estimated CRCL calculation 72 ml/min; Estimated Glomerular Filt Rate > 60; Glucose 120 mg/dL (65-110); Magnesium 1.6 mg/dL (1.6-2.3); Phosphorus 3.2 mg/dL (2.5-4.5); Sodium 145 mmol/L (137-145)
[2023-10-22 06:46] LABS: Hypochromasia 2+ (NORMAL); Platelet Estimate Decreased (Adequate); Schistocytes None Seen (NORMAL); Stomatocytes 1+ (NORMAL)
[2023-10-22 08:03] LABS: Hemoglobin A1C 4.8 % (<5.7)
[2023-10-22 08:42] LABS: Glucose Point of Care 131 mg/dl (65-105)
[2023-10-22] MEDS: hydrALAZINE HCL 50 MG TABLET PO ×2 (09:26→20:35)
[2023-10-22] MEDS: RIVAROXABAN 10 MG TABLET PO (09:26)
[2023-10-22] MEDS: FUROSEMIDE 40 MG TABLET PO ×2 (09:26→20:35)
[2023-10-22] MEDS: predniSONE 20 MG TABLET 40 MG PO (09:27)
[2023-10-22] MEDS: ACETAMINOPHEN 325 MG TABLET 650 MG PO (09:52)
[2023-10-22] MEDS: UMECLIDINIUM/VILANTEROL 62.5-25 MCG ELLIPTA 1 PUFF INHALATION (10:36)
[2023-10-22] MEDS: PERFLUTREN LIPID MICROSPHERES 1.5 ML VIAL DILUTED TO 10 ML TOTAL VOLUME IV PUSH (11:05)
[2023-10-22 12:28] LABS: Glucose Point of Care 117 mg/dl (65-105)
--- NOTE | 2023-10-22 14:05 | IVDEFINITY ---
Prior to administration of IV Definity the patient was educated on the risks and benefits of the imaging enhancing agent including potential adverse side effects. The patient verbalized understanding. Allergies were verified. No exclusion criteria were identified and at least one of the following inclusion criteria were met: 1) physician request, 2) patient technically difficult to image (per the [place] [employer]chocardi[employer] guidelines of two or more segments not discernable within the apical view), or 3) questionable left ventricular function. ?
--- NOTE | 2023-10-22 15:04 | PM.IMPN ---
Progress Note: A&P Assessment and Plan (1) Hypoxia: Code(s): R09.02 - Hypoxemia Status: Acute (2) SOB (shortness of breath): Code(s): R06.02 - Shortness of breath Status: Acute (3) CHF (congestive heart failure): Qualifiers: Heart failure chronicity: unspecified Heart failure type: unspecified Qualified Code(s): I50.9 - Heart failure, unspecified Code(s): I50.9 - Heart failure, unspecified Status: Acute Plan 77M w/ PMH HFpEF, HTN, DVT, COPD, psoriasis, Gaxiola's esophagus, chronic respiratory failure presents with SOB. Admitted on 10/21 for acutely decompensated heart failure # acute hypoxic respiratory failure on chronic hypoxic hypercarbic failure - no stable on 5L NC. he is unsure what he actually needs at home, when and how much. he may need this going forward. opened the discussion about thoracentesis, he is hesitant, we'll have to revisit that # acute decompensated HFpEF. BNP 2610 on admission, 1790 in 04/2023 - pending echo - he is noncompliant with fluid restriction and lasix use. counseled, to which he acknowledged. - cont lasix 40mg BID. fluid restriction, dailiy weights. - consider additional GDMT based on EF # COPD - does not appear acute. cont to monitor. d/c prednisone at discharge. his elevated PCO2 in ABG may be a baseline # HTN - controlled. CTM # IDDM - accuchecks with sliding scale FEN: saline lock IV, cardiac diabetic diet GI prophylaxis: not indicated DVT prophylaxis: cont home xarelto dose Lines: pIV Code Status: DNR Dispo: stable More than 35 minutes spent on chart review, patient interaction and assessment and plan. Subjective Date/time seen: 10/22/23 15:04 Interval history: NAOE. pt believes his breathing is improved. he still has cough but no sputum production. he admits he did not know he was supposed to restrict fluid, and again reports he was non compliant with lasix. he drinks 5 cans of soda per day Review of Systems Review of Systems: All systems reviewed & are unremarkable except as noted in HPI and below Exam Const: General: comfortable and no acute distress Eyes: Pupils: Equal, round and reactive pupils present Neck: Neck: supple Resp: Effort & Inspection: normal respiratory effort Auscultation: crackles (mid lung mcginnis. diminished/absent at bases) Cardio: Rate: regular rate Rhythm: regular rhythm Heart sounds: no gallops, no murmurs and no rubs GI: GI Palp: Yes Soft to palpation and No Tenderness to palpation present (GI) Extrem: General: edema (1+ b/l LEs with chronic stasis thickening) Objective Data Vital Signs Vital Signs: Vital Signs - 24 hr 10/21/23 18:24 10/21/23 16:00 10/21/23 20:58 Temperature Pulse Rate 64 88 Respiratory Rate Blood Pressure Pulse Oximetry 92 Oxygen Delivery Nasal Cannula Oxygen Flow Rate 4 Fraction of Inspired Oxygen 10/21/23 20:00 10/21/23 22:57 10/21/23 20:00 Temperature 97.8 F Pulse Rate 63 63 Respiratory Rate 22 H 16 Blood Pressure 189/57 H Pulse Oximetry 90 93 Oxygen Delivery Nasal Cannula Oxygen Flow Rate 6 Fraction of Inspired Oxygen 10/22/23 00:00 10/22/23 00:30 10/21/23 22:35 Temperature Pulse Rate 60 87 Respiratory Rate 20 Blood Pressure Pulse Oximetry 93 93 Oxygen Delivery CPAP High Flow Nasal Cannula Oxygen Flow Rate 6 Fraction of Inspired Oxygen 10/22/23 04:00 10/22/23 06:00 10/22/23 08:00 Temperature 97.9 F Pulse Rate 65 54 L Respiratory Rate 16 Blood Pressure 166/59 H Pulse Oximetry 94 94 Oxygen Delivery Nasal Cannula Oxygen Flow Rate 5 Fraction of Inspired Oxygen 10/22/23 10:36 10/22/23 10:36 10/22/23 08:00 Temperature Pulse Rate 59 L Respiratory Rate 20 Blood Pressure Pulse Oximetry 94 Oxygen Delivery Nasal Cannula Oxygen Flow Rate 5 Fraction of Inspired Oxygen 40 10/22/23 12:00 Temperature Pulse Rate 73 Respiratory Rate Bl
[2023-10-22 17:34] LABS: Glucose Point of Care 137 mg/dl (65-105)
[2023-10-22] MEDS: FELODIPINE 5 MG TAB CR 10 MG PO (17:38)
[2023-10-22] MEDS: PRAVASTATIN SODIUM 20 MG TABLET PO (17:39)
[2023-10-22] MEDS: CANDESARTAN CILEXETIL 16 MG TABLET 32 MG PO (17:39)
[2023-10-22] MEDS: PANTOPRAZOLE 40 MG TABLET PO (17:39)
[2023-10-22] MEDS: CYANOCOBALAMIN 1,000 MCG TABLET 5000 MCG PO (17:39)
[2023-10-22] MEDS: METOPROLOL SUCCINATE EXT REL 100 MG TABCR PO (17:42)
[2023-10-22] MEDS: GABAPENTIN 300 MG CAPSULE PO (20:35)
[2023-10-22] MEDS: guanFACINE HCL 1 MG TABLET PO (20:35)
[2023-10-22 21:04] LABS: Glucose Point of Care 205 mg/dl (65-105)
[2023-10-23] VITALS: PULSE 58
[2023-10-23 04:00] VITALS: PULSE 52
[2023-10-23 06:47] LABS: Hematocrit 32.5 % (42.0-52.0); Hemoglobin 9.4 g/dL (14.0-18.0); Immature Platelet Fraction Pct 5.2 % (0.9-11.2); Mean Corpuscular HGB Conc 28.9 g/dl (32-36); Mean Corpuscular Hemoglobin 27.9 pg (26-34); Mean Corpuscular Volume 96.4 fl (80-100); Mean Platelet Volume 11.3 fl (7.4-10.4); Platelet Count Result 111 k/mm3 (150-375); Red Blood Count 3.37 M/mm3 (4.6-6.20); Red Cell Distribution Width 14.6 % (11.5-14.5); White Blood Count 5.3 K/mm3 (4.5-10.0)
[2023-10-23 06:58] LABS: Anion Gap 6 mmol/L (8-16); Blood Urea Nitrogen 18 mg/dL (9-20); Carbon Dioxide 35 mmol/L (22-30); Chloride 104 mmol/L (98-107); Estimated CRCL calculation 52 ml/min; Estimated Glomerular Filt Rate 46; Glucose 124 mg/dL (65-110); Magnesium 1.7 mg/dL (1.6-2.3); Potassium 3.9 mmol/L (3.4-5.0); Sodium 145 mmol/L (137-145)
[2023-10-23 08:00] VITALS: BP 170/54; PULSE 53; PULSE 55; RESP 18; TEMP 36.8; O2SAT 97
[2023-10-23] MEDS: hydrALAZINE HCL 50 MG TABLET PO (08:25)
[2023-10-23] MEDS: RIVAROXABAN 10 MG TABLET PO (08:25)
[2023-10-23] MEDS: FUROSEMIDE 40 MG TABLET PO (08:25)
[2023-10-23] MEDS: predniSONE 20 MG TABLET 40 MG PO (08:25)
[2023-10-23] MEDS: TRIAMCINOLONE ACET 0.5% OINT 15 GM TUBE 1 APPLIC TOPICAL (08:27)
[2023-10-23 12:00] VITALS: PULSE 69
[2023-10-23 12:55] VITALS: O2SAT 96
--- NOTE | 2023-10-23 14:14 | PM.DS ---
DS: Admitting Diagnosis Discharge Date 10/23/23 Admitting Diagnosis shortness of breath, increasing oxygen requirements DS: Discharge Diagnosis Discharge Diagnosis (1) Hypoxia: Code(s): R09.02 - Hypoxemia Status: Acute (2) SOB (shortness of breath): Code(s): R06.02 - Shortness of breath Status: Acute (3) Acute exacerbation of CHF (congestive heart failure): Code(s): I50.9 - Heart failure, unspecified Status: Acute DS: Summary Hospital Course Hospital Course: 77M w/ PMH HFpEF, HTN, DVT, COPD, psoriasis, CKD stage 3a, Gaxiola's esophagus, chronic respiratory failure presents with SOB. Admitted on 10/21 for acutely decompensated heart failure. Over approx a week, the patient was having to increase his usual 2L NC to 4-5 L. He reported noncompliance with fluid restriction and diuretic use, and therefore was counseled on CHF disease process and appropriate treatment. He was treated with lasix 40mg BID with adequate urine output and able to be weaned to his usual 2L NC and with resolution of SOB. On 10/23 he is nd'ed home in stable condition and has been counseled. No medication changes ongoing. Repeat echo on 10/22 demonstrated unchanged diastolic dysfunction from prior echo in April. He has b/l pleural effusion but refused to have thoracentesis reporting he almost when that was done in the past. More than 30 minutes spent on discharge planning and documentation. Time Spent with Patient Time attestation: Total time spent providing and/or coordinating discharge services: Exam Const: General: cooperative and no acute distress Resp: Effort & Inspection: normal respiratory effort Auscultation: clear to auscultation bilaterally Cardio: Rate: regular rate Rhythm: regular rhythm Heart sounds: S1 normal heart sound present and S2 normal heart sound present GI: GI Palp: No abdominal tenderness Auscultation: normal bowel sounds DS: Data Data Completed and Pending Labs on day of discharge: Labs from last 24 hours 10/23/23 10/22/23 10/22/23 05:55 19:51 17:28 WBC 5.3 RBC 3.37 L Hgb 9.4 L Hct 32.5 L MCV 96.4 MCH 27.9 MCHC 28.9 L RDW 14.6 H Plt Count 111 L MPV 11.3 H % Immature Plt Fraction 5.2 Sodium 145 Potassium 3.9 Chloride 104 Carbon Dioxide 35 H Anion Gap 6 L BUN 18 Creatinine 1.50 H Estim Creat Clear Calc 52 Estimated GFR 46 L Glucose 124 H POC Capillary Glucose 205 H 137 H Calcium 9.0 Magnesium 1.7 Discharge Plan Discharge Attending physician on discharge: Nilam Camara Discharging Clinician: Nilam Camara Patient Disposition: Home, Self-Care Activity: may shower Diet: heart healthy Discharge Instructions: restrict fluid - 2000 ml per day Stand Alone Forms: General Discharge Information Follow-up/Referrals: Frandy Cespedes MD [Primary Care Provider] - 1 Week Discharge Medications: Continued Enbrel 50 mg/mL (1 mL) syringe 50 mg SUB-Q WEEKLY hydrocodone-acetaminophen 10-325 mg tablet 1 tablet PO TID PRN (Reason: Pain) Xarelto 10 mg tablet 10 mg PO DAILY furosemide 40 mg tablet 40 mg PO QAM mecobalamin (vitamin B12) 5,000 mcg tablet,disintegrating 5,000 mcg PO QPM metoprolol succinate 100 mg tablet extended release 24 hr 100 mg PO QPM esomeprazole magnesium 40 mg capsule,delayed release(DR/EC) 40 mg PO QPM candesartan 32 mg tablet 32 mg PO QPM felodipine 10 mg tablet extended release 24 hr 10 mg PO QPM pravastatin 20 mg tablet 20 mg PO QPM Anoro Ellipta 62.5-25 mcg/actuation blister with device 1 inh inhalation DAILY Qty: 14 5RF gabapentin [Neurontin] 300 mg capsule 300 mg PO TID PRN (Reason: Neuropathy Pain) Qty: 90 1RF Januvia 50 mg tablet See Rx Instructions .ROUTE .COMPLEX Qty: 90 0RF Dose Instruction: TAKE 1 TABLET BY MOUTH DAILY Rx Instructions: TAKE
== END 2023-10-23 14:50 | disposition home or self-care (01) | DRG 291 ==
LOC: ANHED 10:35 → ANH3MEDSUR 13:55 → ANH3MED 16:10
PROVIDERS: Student in an Organized Health Care Education/Training Program; Admitting Provider Internal Medicine; Emergency Provider Emergency Medicine; PCP Family Medicine; Visit Provider General Practice
DX: I13.0 Hypertensive heart and chronic kidney disease with heart failure and stage 1 through stage 4 chronic kidney disease, or unspecified chronic kidney disease (principal); I50.31 Acute diastolic (congestive) heart failure; J96.01 Acute respiratory failure with hypoxia; H34.8122 Central retinal vein occlusion, left eye, stable; J96.12 Chronic respiratory failure with hypercapnia; E11.22 Type 2 diabetes mellitus with diabetic chronic kidney disease; N18.31 Chronic kidney disease, stage 3a; J44.9 Chronic obstructive pulmonary disease, unspecified; L40.9 Psoriasis, unspecified; E78.2 Mixed hyperlipidemia; Z20.822 Contact with and (suspected) exposure to COVID-19; Z66 Do not resuscitate; Z53.29 Procedure and treatment not carried out because of patient's decision for other reasons; Z86.718 Personal history of other venous thrombosis and embolism; Z79.01 Long term (current) use of anticoagulants; Z90.49 Acquired absence of other specified parts of digestive tract; Z87.891 Personal history of nicotine dependence; Z91.148 Patient's other noncompliance with medication regimen for other reason
CPT/HCPCS: 36415; 36600; 71046; 71275; 80048; 80053; 82805; 82948; 83036; 83605; 83735; 83880; 84100; 84484; 85025; 85027; 85055; 85610; 85730; 87637; 93005; 94640; 94660; 96374; 99285; A9270; C8929; J1940; J7512; Q9957; Q9967

== ENCOUNTER 2023-10-24 12:21 | Emergency (ER) | payer MEDICARE, BC, SELFPAY ==
[2023-10-24] VITALS (9 sets, daily range): BP systolic 126–146; BP diastolic 52–67; PULSE 63–130; RESP 19–28; TEMP 36.6; O2SAT 91–96
--- NOTE | ~2023-10-24 | XR_ITS ---
EXAMINATION: XR chest 2V DATE: 10/24/2023 13:36 INDICATION: Heart palpitations TECHNIQUE: AP and lateral views of the chest are obtained. COMPARISON: 10/21/2023 FINDINGS: Bibasilar airspace opacities persist but have improved. There are small pleural effusions. There is no pneumothorax. The cardiomediastinal silhouette is normal. There are bridging osteophytes at multiple levels in the spine, consistent with diffuse idiopathic skeletal hyperostosis (DISH). IMPRESSION: 1. Small pleural effusions. 2. Bibasilar airspace opacities, likely atelectasis. Reviewed, dictated and finalized at location F. BUSINESS PARTNER
--- NOTE | 2023-10-24 12:22 | ECG_ITS ---
Measurements Intervals [place] Rate: 128 P: MN: 0 QRS: -21 QRSD: 101 T: 65 QT: 299 QTc: 437 Interpretive Statements ATRIAL FIBRILLATION WITH RAPID VENTRICULAR RESPONSE BORDERLINE LEFT AXIS DEVIATION [QRS AXIS < -20] NONSPECIFIC T-WAVE ABNORMALITY ABNORMAL ECG Electronically Signed On 10-25-2023 12:37:11 FIELD MARKETING REPRESENTATIVE by Alexandr Daily M.D.
--- NOTE | 2023-10-24 12:34 | ED.ARRPALP ---
HPI - Arrhythmia/Palpitations General Chief Complaint: Arrhythmia/Palpitations Stated Complaint: fast hr Time Seen by Provider: 10/24/23 12:34 History of Present Illness HPI narrative: Patient is a 77-year-old male CHF, hypertension, DVT on Xarelto, COPD, CKD stage 3, chronic respiratory failure on 3 L nasal cannula here with tachycardia and palpitations. Patient states that about 7 hours ago he began feeling some palpitations on the left side of his chest. He notes that it felt like a tinge sensation which she mainly experiences when he gets up and tries to do anything around the house. He has no prior history of AFib or irregular heart rhythm. He does note that he takes metoprolol for his blood pressure and has been compliant with his anticoagulation for his prior DVT. He was recently hospitalized for a CHF exacerbation and was given a large amount of Lasix while he was here in the hospital. He reports that he feels great at this time especially when he is at rest. No lightheadedness, no shortness of breath. No cough, congestion, fever, chills. Related Data Home Medications Medication Instructions Recorded Confirmed etanercept 50 mg/mL (1 mL) 50 mg subcut WEEKLY 09/11/19 10/21/23 subcutaneous syringe (Enbrel) hydrocodone 10 mg-acetaminophen 1 tablet PO TID PRN Pain 06/17/20 10/21/23 325 mg tablet rivaroxaban 10 mg tablet (Xarelto) 10 mg PO DAILY 06/17/20 10/21/23 candesartan 32 mg tablet 32 mg PO QPM 04/21/23 10/21/23 esomeprazole magnesium 40 mg 40 mg PO QPM 04/21/23 10/21/23 capsule,delayed release felodipine 10 mg tablet,extended 10 mg PO QPM 04/21/23 10/21/23 release 24 hr mecobalamin (vitamin B12) 5,000 5,000 mcg PO QPM 04/21/23 10/21/23 mcg disintegrating tablet metoprolol succinate 100 mg 100 mg PO QPM 04/21/23 10/21/23 tablet,extended release 24 hr pravastatin 20 mg tablet 20 mg PO QPM 04/21/23 10/21/23 furosemide 40 mg tablet 40 mg PO QAM 09/14/23 10/21/23 Allergies Allergy/AdvReac Type Severity Reaction Status Date / Time No Known Allergies Allergy Verified 10/24/23 12:29 Review of Systems Review of Systems: All systems reviewed & are unremarkable except as noted in HPI and below PMFSH Past Medical History Medical History Gaxiola's esophagus with dysplasia Blood clot in eye left eye. The patient states that he has to get injections frequently. 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 Mixed type COPD (chronic obstructive pulmonary disease) Psoriasis Retinal vein occlusion of left eye Surgical History Surgical History H/O colonoscopy with polypectomy History of lung biopsy History of sinus surgery Status post appendectomy Status post cholecystectomy Status post laparoscopic fundoplication Family History Family History Father Patient's father is , Onset Age: 84 Family history of lung disease, Onset Age: 84 Acute myocardial infarction Chronic obstructive pulmonary disease Mother Family history of cardiovascular disease, Onset Age: 64 Patient's mother is , Onset Age: 64 Congestive heart failure Social History Social History (Updated 10/21/23 @ 18:26 by Joleen Elise APRN) Social History: The patient lives with his and he has 1 child. He elects his , Rachel Cox, as his surrogate decision maker. 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 The patient used to smoke. He denies any alcohol or illicit drugs. Code Status: DNR/DNI Smoking packs per day: 1 Smoking cigarettes per day: 20.0 Years smoked: 40 Smoking pack-years: 40.00 Smoking status: Former smoker Second hand tobacco smoke exposure:
[2023-10-24 12:52] LABS: Basophils Absolute Auto 0.1 K/mm3 (0.0-0.1); Basophils Percent Auto 0.7 % (0.2-1.2); Eosinophils Absolute Auto 0.1 K/mm3 (0-0.3); Eosinophils Percent Auto 0.7 % (0-4.4); Hematocrit 35.6 % (42.0-52.0); Hemoglobin 10.4 g/dL (14.0-18.0); Immature Granulocyte Absolute 0.17 K/mm3 (0.00-0.031); Immature Granulocyte Percent A 1.7 % (0-0.5); Lymphocytes Absolute Auto 4.77 K/mm3 (0.9-3.2); Lymphocytes Percent Auto 47.3 % (18.3-44.2); Mean Corpuscular HGB Conc 29.2 g/dl (32-36); Mean Corpuscular Hemoglobin 27.9 pg (26-34); Mean Corpuscular Volume 95.4 fl (80-100); Mean Platelet Volume 11.1 fl (7.4-10.4); Monocytes Absolute Auto 0.9 K/mm3 (0.1-0.6); Monocytes Percent Auto 8.9 % (2.6-8.5); Neutrophils Absolute Auto 4.1 K/mm3 (1.3-6.7); Neutrophils Percent Auto 40.7 % (45.5-73.1); Platelet Count Result 152 k/mm3 (150-375); Red Blood Count 3.73 M/mm3 (4.6-6.20); White Blood Count 10.1 K/mm3 (4.5-10.0)
[2023-10-24 13:01] LABS: Alanine Aminotransferase 14 U/L (6-50); Alkaline Phosphatase 80 U/L (38-126); Anion Gap 8 mmol/L (8-16); Aspartate Amino Transferase 21 U/L (17-59); Bilirubin,Total 0.5 mg/dL (0.2-1.3); Blood Urea Nitrogen 25 mg/dL (9-20); Calcium 8.4 mg/dL (8.4-10.2); Carbon Dioxide 33 mmol/L (22-30); Chloride 106 mmol/L (98-107); Estimated CRCL calculation 55 ml/min; Estimated Glomerular Filt Rate 49; Glucose 93 mg/dL (65-110); Potassium 3.5 mmol/L (3.4-5.0); Sodium 147 mmol/L (137-145)
[2023-10-24 13:17] LABS: Magnesium 1.6 mg/dL (1.6-2.3)
--- NOTE | 2023-10-24 13:22 | ECG_ITS ---
Measurements Intervals [place] Rate: 66 P: -16 GA: 127 QRS: -16 QRSD: 106 T: 21 QT: 400 QTc: 420 Interpretive Statements SINUS RHYTHM NORMAL ECG COMPARED TO ECG 10/24/2023 12:31:46 SINUS RHYTHM NOW PRESENT Electronically Signed On 10-25-2023 12:38:31 LONGITUDINAL FLOAT OPERATOR by Alexandr Daily M.D.
[2023-10-24 13:29] LABS: NT Pro B Type Natriuretic Pept 5080 pg/mL (19.9-100); Troponin I 0.019 ng/mL (0.000-0.034)
--- NOTE | 2023-10-24 13:31 | PC.NURSE ---
Per MD Hurtado holding diltiazem due to patient converting to sinus rhythm at this time.
[2023-10-24 14:19] LABS: Appearance Urine Clear (Clear); Bacteria Urine None Seen /hpf; Bilirubin Urine Negative (Negative); Blood Urine Negative (Negative); Color Urine Yellow (Yellow); Glucose Urine UA Negative (Negative); Ketones Urine Negative (Negative); Leukocyte Esterase Ur Negative LEU/UL (Negative); Need Manual Microscopic Reviewed; Nitrate Urine Negative (Negative); Protein Urine 2+ mg/dL (Negative); RBC Urine 0-2 /hpf (0-2); Specific Grav Ur 1.015 (1.001-1.035); Squamous Epithelial Cell Urine None seen /hpf (Few); WBC Urine 0-5 /hpf; pH Urine 5.5 (5.0-9.0)
[2023-10-24 14:20] LABS: Add Urine Microscopic? YES
== END 2023-10-24 15:23 | disposition home or self-care (01) ==
PROVIDERS: Emergency Provider Student in an Organized Health Care Education/Training Program; PCP Family Medicine
DX: I48.91 Unspecified atrial fibrillation (principal); I13.0 Hypertensive heart and chronic kidney disease with heart failure and stage 1 through stage 4 chronic kidney disease, or unspecified chronic kidney disease; N18.30 Chronic kidney disease, stage 3 unspecified; I50.9 Heart failure, unspecified; J44.9 Chronic obstructive pulmonary disease, unspecified; K22.70 Barrett's esophagus without dysplasia; Z66 Do not resuscitate; Z87.891 Personal history of nicotine dependence; Z86.010 Personal history of colon polyps; Z86.718 Personal history of other venous thrombosis and embolism; Z90.49 Acquired absence of other specified parts of digestive tract; Z79.01 Long term (current) use of anticoagulants; Z79.84 Long term (current) use of oral hypoglycemic drugs
CPT/HCPCS: 36415; 71046; 80053; 81001; 83735; 83880; 84484; 85025; 93005; 99284

== ENCOUNTER 2023-12-27 08:25 | Outpatient (CLI) | payer MEDICARE, BC, SELFPAY ==
[2023-12-27 08:51] LABS: Basophils Percent Auto 0.5 % (0.2-1.2); Eosinophils Absolute Auto 0.2 K/mm3 (0-0.3); Eosinophils Percent Auto 3.9 % (0-4.4); Hematocrit 37.6 % (42.0-52.0); Hemoglobin 11.1 g/dL (14.0-18.0); Immature Granulocyte Absolute 0.03 K/mm3 (0.00-0.031); Immature Granulocyte Percent A 0.8 % (0-0.5); Lymphocytes Absolute Auto 1.17 K/mm3 (0.9-3.2); Lymphocytes Percent Auto 30.6 % (18.3-44.2); Mean Corpuscular HGB Conc 29.5 g/dl (32-36); Mean Corpuscular Volume 94.7 fl (80-100); Mean Platelet Volume 10.9 fl (7.4-10.4); Monocytes Absolute Auto 0.3 K/mm3 (0.1-0.6); Monocytes Percent Auto 8.4 % (2.6-8.5); Neutrophils Absolute Auto 2.1 K/mm3 (1.3-6.7); Neutrophils Percent Auto 55.8 % (45.5-73.1); Platelet Count Result 108 k/mm3 (150-375); Red Blood Count 3.97 M/mm3 (4.6-6.20); Red Cell Distribution Width 14.9 % (11.5-14.5); White Blood Count 3.8 K/mm3 (4.5-10.0)
[2023-12-27 14:11] LABS: Iron 50 ug/dL (49-181)
[2023-12-27 14:23] LABS: Percent Iron Saturation 19 % (20-50)
[2023-12-27 16:20] LABS: Anion Gap 8 mmol/L (8-16); Blood Urea Nitrogen 42 mg/dL (9-20); Carbon Dioxide 24 mmol/L (22-30); Chloride 115 mmol/L (98-107); Estimated Glomerular Filt Rate 37; Folic Acid 6.6 ng/mL (2.76->20); Glucose 99 mg/dL (65-110); Potassium 5.3 mmol/L (3.4-5.0); Sodium 147 mmol/L (137-145)
== END 2023-12-27 08:26 | disposition home or self-care (01) ==
LOC: ANHLAB 08:25
PROVIDERS: PCP Family Medicine; Visit Provider Internal Medicine Hematology & Oncology
DX: D64.9 Anemia, unspecified (principal)
CPT/HCPCS: 36415; 80048; 82607; 82728; 82746; 83540; 83550; 85025

== ENCOUNTER 2024-01-14 06:33 | Outpatient (CLI) | payer MEDICARE, BC, SELFPAY ==
[2024-01-14 07:22] LABS: Hematocrit 31.6 % (42.0-52.0); Hemoglobin 9.1 g/dL (14.0-18.0); Mean Corpuscular HGB Conc 28.8 g/dl (32-36); Mean Corpuscular Hemoglobin 27.7 pg (26-34); Mean Platelet Volume 11.5 fl (7.4-10.4); Platelet Count Result 157 k/mm3 (150-375); Red Blood Count 3.29 M/mm3 (4.6-6.20); Red Cell Distribution Width 14.8 % (11.5-14.5); White Blood Count 5.6 K/mm3 (4.5-10.0)
[2024-01-14 08:00] LABS: Iron 43 ug/dL (49-181)
[2024-01-14 08:11] LABS: Percent Iron Saturation 16 % (20-50)
[2024-01-17 17:31] LABS: H pylori, Urea Breath NOT DETECTED (NOT DETECTED)
== END 2024-01-14 06:34 | disposition home or self-care (01) ==
LOC: ANHLAB 06:37
PROVIDERS: PCP Family Medicine; Visit Provider Family Medicine
DX: D64.9 Anemia, unspecified (principal); E11.9 Type 2 diabetes mellitus without complications; R10.13 Epigastric pain
CPT/HCPCS: 36415; 83013; 83540; 83550; 85027

== ENCOUNTER 2024-02-03 00:58 | Day surgery (SDC) | payer MEDICARE, BC, SELFPAY ==
[2024-01-26 12:12] VITALS: BMI 34.6
--- NOTE | 2024-02-01 09:21 | SUR.PREOP ---
Patient called regarding upcoming procedure. Voicemail left regarding appointment times.
--- NOTE | 2024-02-02 08:57 | PC.NURSE ---
01/26/2024 Spoke with _patient_ regarding medication _XARELTO_. Pt. verbalizes understanding that the last dose of _XARELTO__ is to be taken on _01/31/2024_ and the Endoscopist will instruct them when to restart after the procedure.
[2024-02-03 06:59] VITALS: BP 141/55; PULSE 52; RESP 20; TEMP 36.2; O2SAT 100
[2024-02-03] MEDS: LACTATED RINGERS 1,000 ML 150 ML IV CONT (07:12)
[2024-02-03 07:24] LABS: Glucose Point of Care 93 mg/dl (65-105)
--- NOTE | 2024-02-03 07:38 | WPDANESEPPF ---
Anes - Initial Pre Proc Eval Procedure: Operation Date: 02/03/24 08:00 Proposed Procedures p Esophagogastroduodenoscopy - Nabil Lewis MD Date/Time: 02/03/24 07:38 Surgeon: Nabil Lewis MD Pre Op Diagnosis: epigastric pain Patient Data Age: 78 Gender: M Height: 1.83 m Weight: 115.6 kg Last Vital Signs Temp 97.2 F L 02/03/24 06:59 Pulse 52 L 02/03/24 06:59 Resp 20 02/03/24 06:59 BP 141/55 H 02/03/24 06:59 Pulse Ox 100 02/03/24 06:59 O2 Del Method Nasal Cannula 02/03/24 06:59 O2 Flow Rate 2.5 02/03/24 06:59 Allergies Allergy/AdvReac Type Severity Reaction Status Date / Time No Known Allergies Allergy Verified 02/03/24 06:57 Home Medications Medication Instructions Recorded Confirmed Type etanercept 50 mg/mL (1 mL) 50 mg subcut WEEKLY 09/11/19 01/26/24 History subcutaneous syringe (Enbrel) hydrocodone 10 mg-acetaminophen 1 tablet PO TID PRN Pain 06/17/20 01/26/24 History 325 mg tablet rivaroxaban 10 mg tablet (Xarelto) 10 mg PO DAILY 06/17/20 01/26/24 History mecobalamin (vitamin B12) 5,000 5,000 mcg PO QPM 04/21/23 01/26/24 History mcg disintegrating tablet gabapentin 300 mg capsule 300 mg PO TID PRN Neuropathy Pain 07/14/23 01/26/24 Rx (Neurontin) #90 caps furosemide 40 mg tablet 40 mg PO QAM 09/14/23 01/26/24 History umeclidinium 62.5 mcg-vilanterol 1 inh inhalation DAILY #14 ea 11/18/23 01/26/24 Rx 25 mcg/actuation powdr for inhalation (Anoro Ellipta) hydralazine 50 mg tablet 50 mg PO BID #90 tabs 11/24/23 02/03/24 Rx zolpidem 5 mg tablet (Ambien) 5 mg PO QHS PRN insomnia #30 tabs 11/30/23 01/26/24 Rx triamcinolone acetonide 0.1 % 1 applic topical TID #30 grams 12/22/23 01/26/24 Rx topical cream candesartan 32 mg tablet 32 mg PO QPM #90 tabs 12/29/23 01/26/24 Rx metoprolol succinate 100 mg 100 mg PO QPM #90 tabs 12/29/23 01/26/24 Rx tablet,extended release 24 hr pravastatin 20 mg tablet 20 mg PO QPM #90 tabs 12/29/23 01/26/24 Rx felodipine 10 mg tablet,extended 10 mg PO QPM #90 tabs 01/03/24 01/26/24 Rx release 24 hr sitagliptin phosphate 50 mg tablet See Rx Instructions .Route 01/10/24 01/26/24 Rx (Januvia) .COMPLEX #90 tabs esomeprazole magnesium 40 mg 40 mg PO Q12H #180 caps 01/13/24 01/26/24 Rx capsule,delayed release empagliflozin 10 mg tablet 10 mg PO DAILY #30 tabs 01/18/24 01/26/24 Rx (Jardiance) Laboratory Tests 02/03/24 06:55 POC Capillary Glucose 93 mg/dl (65-105) Patient hx anesthesia problems: none Family hx anesthesia problems: none Results Review: All pre-operative results and documents have been reviewed as part of the pre-operative evaluation. [facility] Past Medical History Medical History Gaxiola's esophagus with dysplasia Blood clot in eye left eye. The patient states that he has to get injections frequently. 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 Mixed type COPD (chronic obstructive pulmonary disease) Psoriasis Retinal vein occlusion of left eye Surgical History Surgical History H/O colonoscopy with polypectomy History of lung biopsy History of sinus surgery Status post appendectomy Status post cholecystectomy Status post laparoscopic fundoplication Family History Family History Father Patient's father is , Onset Age: 84 Family history of lung disease, Onset Age: 84 Acute myocardial infarction Chronic obstructive pulmonary disease Mother Family history of cardiovascular disease, Onset Age: 64 Patient's mother is , Onset Age: 64 Congestive heart failure Social History Social History (Reviewed 01/18/24 @ 0
--- NOTE | 2024-02-03 07:59 | PM.HPGS ---
History of Present Illness History of Present Illness Consent: Risks, benefits, and alternatives have been discussed and questions answered. Patient agrees to proceed with procedure. Chief complaint: epigastric pain Narrative: Dhaval Cox is a 78 year old male with more dyspepsia and chest discomfort since November, his last EGD ~ 2019, he had Morgan in 1997 and has been taking nexium since, also history of Gaxiola's. Review of Systems Review of Systems: All systems reviewed & are unremarkable except as noted in HPI and below [facility] Past Medical History Medical History (Updated 02/03/24 @ 08:01 by Nabil Lewis MD) Gaxiola's esophagus with dysplasia Blood clot in eye left eye. The patient states that he has to get injections frequently. 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 Mixed type COPD (chronic obstructive pulmonary disease) Psoriasis Retinal vein occlusion of left eye Surgical History Surgical History H/O colonoscopy with polypectomy History of lung biopsy History of sinus surgery Status post appendectomy Status post cholecystectomy Status post laparoscopic fundoplication Family History Family History Father Patient's father is , Onset Age: 84 Family history of lung disease, Onset Age: 84 Acute myocardial infarction Chronic obstructive pulmonary disease Mother Family history of cardiovascular disease, Onset Age: 64 Patient's mother is , Onset Age: 64 Congestive heart failure Social History Social History Social History: The patient lives with his and he has 1 child. He elects his , Rachel Cox, as his surrogate decision maker. 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 The patient used to smoke. He denies any alcohol or illicit drugs. Code Status: DNR/DNI Smoking packs per day: 1 Smoking cigarettes per day: 20.0 Years smoked: 48 Smoking pack-years: 48.00 Smoking status: Former smoker Tobacco type: cigarettes Second hand tobacco smoke exposure: Yes Additional smoking assessment comments: quit 2004 Alcohol intake: current Drinks per week: 1 Alcohol use details: beer Substance use: never Substance use type: does not use Do You Feel Safe in your Home?: Yes Lack of Transportation: No Lack of Food: Never True Current Housing: I Have Housing Concerned About Future Housing: No Difficulty Paying Gas/Electric Bills: No Difficulty Paying for Meds: No Currently Unemployed: No Education: Bachelor's Degree Difficulty w/ Childcare or Family Care: No Living arrangements: with family Gender identity (if verbalized by the patient): Male Sexual Orientation (if Verbalized by the Patient): Straight or Heterosexual Spiritual care concerns: No Meds Home Medications and Allergies Home Medications Medication Instructions Recorded Confirmed Type etanercept 50 mg/mL (1 mL) 50 mg subcut WEEKLY 09/11/19 01/26/24 History subcutaneous syringe (Enbrel) hydrocodone 10 mg-acetaminophen 1 tablet PO TID PRN Pain 06/17/20 01/26/24 History 325 mg tablet rivaroxaban 10 mg tablet (Xarelto) 10 mg PO DAILY 06/17/20 01/26/24 History mecobalamin (vitamin B12) 5,000 5,000 mcg PO QPM 04/21/23 01/26/24 History mcg disintegrating tablet gabapentin 300 mg capsule 300 mg PO TID PRN Neuropathy Pain 07/14/23 01/26/24 Rx (Neurontin) #90 caps furosemide 40 mg tablet 40 mg PO QAM 09/14/23 01/26/24 History umeclidinium 62.5 mcg-vilanterol 1 inh inhalation DAILY #14 ea 11/18/23 01/26/24 Rx 25 mcg/actuation powdr for inhalation (Anoro Ellipt
[2024-02-03 08:17] VITALS: BP 118/44; PULSE 53; RESP 23; O2SAT 99
[2024-02-03 08:27] VITALS: BP 114/44; PULSE 49; RESP 21; O2SAT 99
[2024-02-03 08:37] VITALS: BP 116/49; PULSE 47; RESP 16; O2SAT 99
== END 2024-02-03 08:43 | disposition home or self-care (01) ==
PROVIDERS: PCP Family Medicine; Visit Provider Internal Medicine Gastroenterology
PROC: 0DJ08ZZ Inspection of Upper Intestinal Tract, Via Natural or Artificial Opening Endoscopic (ICD-10-PCS; CPT 43235; principal; 2024-02-03 08:00)
DX: K29.50 Unspecified chronic gastritis without bleeding (principal); K31.89 Other diseases of stomach and duodenum; I10 Essential (primary) hypertension; J44.89 Other specified chronic obstructive pulmonary disease; K21.9 Gastro-esophageal reflux disease without esophagitis; G89.29 Other chronic pain; M54.50 Low back pain, unspecified; E66.9 Obesity, unspecified; Z68.34 Body mass index [BMI] 34.0-34.9, adult; Z79.891 Long term (current) use of opiate analgesic; Z79.01 Long term (current) use of anticoagulants; Z79.51 Long term (current) use of inhaled steroids; Z79.84 Long term (current) use of oral hypoglycemic drugs; Z98.890 Other specified postprocedural states; Z90.49 Acquired absence of other specified parts of digestive tract; Z87.891 Personal history of nicotine dependence; Z86.010 Personal history of colon polyps; Z86.718 Personal history of other venous thrombosis and embolism; Z82.49 Family history of ischemic heart disease and other diseases of the circulatory system; K29.70 Gastritis, unspecified, without bleeding
CPT/HCPCS: 43239; 82948; 88305; J2704; J7120

== ENCOUNTER 2024-02-22 07:24 | Outpatient (CLI) | payer MEDICARE, BC, SELFPAY ==
--- NOTE | ~2024-02-22 | US_ITS ---
Abdominal Sonogram: Real-time sonographic imaging of the abdomen was performed. Clinical History: Gastroesophageal reflux disease Findings: The liver appears somewhat heterogeneous, with no evidence of mass lesion or bile duct dil atation. Main portal vein demonstrates normal direction of flow. The spleen is normal in size without evidence of focal lesion. The gallbladder is absent, compatible prior cholecystectomy. The common b ile duct measures 9 mm. The visualized pancreas, aorta, and IVC are unremarkable. The right kidney measures 11.6 cm in length and the left kidney measures 12.0 cm. There is no hydronephrosis or renal calculus. Large right lower pole renal cyst present. Multiple additional smaller renal cysts are als o present. Impression: Heterogeneous hepatic echotexture could reflect diffuse fatty infiltration or possibly other chronic liver disease. Correlate clinically. Dilated common bile duct may related to prior cholecystectomy. Bilateral renal cysts, as above. Reviewed, dictated and finalized at [facility]. Impression: Heterogeneous hepatic echotexture could reflect diffuse fatty infiltration or p ossibly other chronic liver disease. Correlate clinically. Dilated common bile duct may related to prior cholecystectomy. Bilateral renal cysts, as above.
== END 2024-02-22 07:25 | disposition home or self-care (01) ==
PROVIDERS: PCP Family Medicine; Visit Provider Internal Medicine Gastroenterology
DX: K21.9 Gastro-esophageal reflux disease without esophagitis (principal); N28.1 Cyst of kidney, acquired; Z90.49 Acquired absence of other specified parts of digestive tract
CPT/HCPCS: 76700

== ENCOUNTER 2024-04-28 09:09 | Outpatient (CLI) | payer MEDICARE, BC, SELFPAY ==
[2024-04-28 09:43] LABS: Basophils Percent Auto 0.5 % (0.2-1.2); Eosinophils Absolute Auto 0.1 K/mm3 (0-0.3); Eosinophils Percent Auto 2.2 % (0-4.4); Hematocrit 29.1 % (42.0-52.0); Hemoglobin 8.6 g/dL (14.0-18.0); Immature Granulocyte Percent A 2.4 % (0-0.5); Lymphocytes Absolute Auto 0.69 K/mm3 (0.9-3.2); Lymphocytes Percent Auto 16.7 % (18.3-44.2); Mean Corpuscular HGB Conc 29.6 g/dl (32-36); Mean Corpuscular Hemoglobin 28.9 pg (26-34); Mean Corpuscular Volume 97.7 fl (80-100); Mean Platelet Volume 10.7 fl (7.4-10.4); Monocytes Absolute Auto 0.4 K/mm3 (0.1-0.6); Monocytes Percent Auto 10.7 % (2.6-8.5); Neutrophils Absolute Auto 2.8 K/mm3 (1.3-6.7); Neutrophils Percent Auto 67.5 % (45.5-73.1); Platelet Count Result 133 k/mm3 (150-375); Red Blood Count 2.98 M/mm3 (4.6-6.20); Red Cell Distribution Width 14.9 % (11.5-14.5); White Blood Count 4.1 K/mm3 (4.5-10.0)
[2024-04-28 09:51] LABS: Platelet Estimate Decreased (Adequate); Schistocytes None Seen
[2024-04-28 09:52] LABS: Giant Platelets Present; Hypochromasia 2+
[2024-04-28 16:31] LABS: Iron 61 ug/dL (49-181)
[2024-04-28 16:40] LABS: Anion Gap 10 mmol/L (4-12); Blood Urea Nitrogen 35 mg/dL (9-20); Calcium 8.4 mg/dL (8.4-10.2); Carbon Dioxide 24 mmol/L (22-30); Chloride 112 mmol/L (98-107); Estimated Glomerular Filt Rate 26; Glucose 101 mg/dL (65-110); Potassium 5.3 mmol/L (3.4-5.0); Sodium 146 mmol/L (137-145)
[2024-04-28 16:42] LABS: Percent Iron Saturation 23 % (20-50)
== END 2024-04-28 09:10 | disposition home or self-care (01) ==
LOC: ANHLAB 09:11
PROVIDERS: PCP Family Medicine; Visit Provider Internal Medicine Hematology & Oncology
DX: D64.9 Anemia, unspecified (principal)
CPT/HCPCS: 36415; 80048; 82728; 83540; 83550; 85025

== ENCOUNTER 2024-05-23 14:28 | Inpatient (IN) | payer MEDICARE, BC, SELFPAY ==
[2024-05-23] VITALS (20 sets, daily range): BP systolic 119–142; BP diastolic 43–61; PULSE 62–99; RESP 14–20; TEMP 36.2–36.5; O2SAT 92–100; BMI 30.4
--- NOTE | ~2024-05-23 | US_ITS ---
US renal BI Ordering provider: Suresh Dykes MD History: . DAVID on CKD and hyperkalemia . Comparison: None. Technique: Ultrasound bilateral kidneys. Findings: RIGHT KIDNEY: Measures 12.3x 6.6x 7.3 cm in length which is normal in size. Multiple cysts are seen i n the inferior pole measures 5.2 x 5.3 x 6.1 cm. Cyst is seen in the mid/inferior pole measuring 1.6 x 2.1 x 1.5 cm. No renal mass or visualized echogenic stones. Otherwise, normal echotexture and conto ur. No hydronephrosis. Normal renal cortical thickness. LEFT KIDNEY: Measures 12.4x 6.9x 7.6 cm in length which is normal in size. Multiple cysts are seen in the inferior pole measures 2.4 x 2.1 x 2 cm. Another one is seen measuring 1.2 x 1.5 x 1.3 cm. No re nal mass or visualized echogenic stones. Otherwise, normal echotexture and contour. No hydronephrosis . Normal renal cortical thickness. BLADDER: Partially distended. IMPRESSION: Bilateral renal cysts. Reviewed, dictated and finalized at location A. IMPRESSION: Bilateral renal cysts.
--- NOTE | ~2024-05-23 | XR_ITS ---
EXAMINATION: XR chest 2V DATE: 05/23/2024 16:31 INDICATION: Chronic obstructive pulmonary disease. Hypertension. TECHNIQUE: Frontal and lateral views of the chest were obtained. COMPARISON: Chest 2 views 10/24/2023, chest CT 10/21/2023 FINDINGS: There is no pneumonia, pleural effusion, or pneumothorax. The heart size is normal. There i s a prominent left pericardial fat pad. IMPRESSION: 1. No acute cardiopulmonary disease. Reviewed, dictated and finalized at location E.
--- NOTE | 2024-05-23 15:57 | ECG_ITS ---
Test Date: 2024-05-23 16:09:03 Measurements Intervals [place] Rate: 64 P: 0 NV: 0 QRS: -10 QRSD: 89 T: 32 QT: 382 QTc: 396 Interpretive Statements ECTOPIC ATRIAL RHYTHM ABNORMAL ECG No previous ECG available for comparison Electronically Signed On 05-23-2024 18:30:00 CDT by Robreto Carbajal D.O.
[2024-05-23 16:15] LABS: Basophils Percent Auto 0.4 % (0.2-1.2); Eosinophils Absolute Auto 0.1 K/mm3 (0-0.3); Eosinophils Percent Auto 1.3 % (0-4.4); Hematocrit 27.8 % (42.0-52.0); Hemoglobin 8.1 g/dL (14.0-18.0); Immature Granulocyte Absolute 0.44 K/mm3 (0.00-0.031); Immature Granulocyte Percent A 9.2 % (0-0.5); Lymphocytes Absolute Auto 0.76 K/mm3 (0.9-3.2); Lymphocytes Percent Auto 15.9 % (18.3-44.2); Mean Corpuscular HGB Conc 29.1 g/dl (32-36); Mean Corpuscular Hemoglobin 29.1 pg (26-34); Mean Platelet Volume 10.5 fl (7.4-10.4); Monocytes Absolute Auto 0.5 K/mm3 (0.1-0.6); Monocytes Percent Auto 9.6 % (2.6-8.5); Neutrophils Absolute Auto 3.1 K/mm3 (1.3-6.7); Neutrophils Percent Auto 63.6 % (45.5-73.1); Platelet Count Result 110 k/mm3 (150-375); Red Blood Count 2.78 M/mm3 (4.6-6.20); Red Cell Distribution Width 14.6 % (11.5-14.5); White Blood Count 4.8 K/mm3 (4.5-10.0)
[2024-05-23 16:28] LABS: Appearance Urine Cloudy (Clear); Bacteria Urine None Seen /hpf; Bilirubin Urine Negative (Negative); Blood Urine 2+ (Negative); Color Urine Yellow (Yellow); Glucose Urine UA Negative (Negative); Ketones Urine Negative (Negative); Leukocyte Esterase Ur Negative LEU/UL (Negative); Nitrate Urine Negative (Negative); Non Pathogenic Casts 0-2; Protein Urine Trace mg/dL (Negative); RBC Urine 21-50 /hpf (0-2); Specific Grav Ur 1.014 (1.001-1.035); Squamous Epithelial Cell Urine None Seen /hpf (Few); WBC Urine 0-5 /hpf (0-3)
[2024-05-23 16:29] LABS: Alanine Aminotransferase 63 U/L (6-50); Albumin Level 3.7 g/dL (3.5-5.1); Alkaline Phosphatase 502 U/L (38-126); Anion Gap 11 mmol/L (4-12); Aspartate Amino Transferase 43 U/L (17-59); Bilirubin,Total 1.6 mg/dL (0.2-1.3); Blood Urea Nitrogen 66 mg/dL (9-20); Calcium 8.3 mg/dL (8.4-10.2); Carbon Dioxide 17 mmol/L (22-30); Chloride 115 mmol/L (98-107); Estimated CRCL calculation 22 ml/min; Estimated Glomerular Filt Rate 18; Glucose 90 mg/dL (65-110); Potassium 6.8 mmol/L (3.4-5.0); Sodium 143 mmol/L (137-145)
[2024-05-23 16:59] LABS: Add Urine Microscopic? YES
--- NOTE | 2024-05-23 16:59 | ED.RECABL ---
HPI - Recheck/Abnormal Lab/Rx General Chief Complaint: Recheck/Abnormal Lab/Rx Stated Complaint: elevated k+ Time Seen by Provider: 05/23/24 16:33 History of Present Illness HPI narrative: 78-year-old male the history of hypertension, diabetes, DVT on Eliquis, anemia presenting with abnormal labs. Patient states that he saw Dr. Orona last week who ordered outpatient blood work. He had this done yesterday and received a call today to come to the ER because his potassium was high. He denies any complaints. He feels at baseline. Related Data Home Medications Medication Instructions Recorded Confirmed etanercept 50 mg/mL (1 mL) 50 mg subcut WEEKLY 09/11/19 05/23/24 subcutaneous syringe (Enbrel) hydrocodone 10 mg-acetaminophen 1 tablet PO TID PRN Pain 06/17/20 05/23/24 325 mg tablet rivaroxaban 10 mg tablet (Xarelto) 10 mg PO DAILY 06/17/20 05/23/24 mecobalamin (vitamin B12) 5,000 5,000 mcg PO QPM 04/21/23 05/23/24 mcg disintegrating tablet Allergies Allergy/AdvReac Type Severity Reaction Status Date / Time No Known Allergies Allergy Verified 05/23/24 15:15 Review of Systems Review of Systems: All systems reviewed & are unremarkable except as noted in HPI and below [facility] Past Medical History Medical History Gaxiola's esophagus with dysplasia Blood clot in eye left eye. The patient states that he has to get injections frequently. 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 Mixed type COPD (chronic obstructive pulmonary disease) Psoriasis Retinal vein occlusion of left eye Surgical History Surgical History H/O colonoscopy with polypectomy History of lung biopsy History of sinus surgery Status post appendectomy Status post cholecystectomy Status post laparoscopic fundoplication Family History Family History Father Patient's father is , Onset Age: 84 Family history of lung disease, Onset Age: 84 Acute myocardial infarction Chronic obstructive pulmonary disease Mother Family history of cardiovascular disease, Onset Age: 64 Patient's mother is , Onset Age: 64 Congestive heart failure Social History Social History Social History: The patient lives with his and he has 1 child. He elects his , Rachel Cox, as his surrogate decision maker. 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 The patient used to smoke. He denies any alcohol or illicit drugs. Code Status: DNR/DNI Smoking packs per day: 1 Smoking cigarettes per day: 20.0 Years smoked: 48 Smoking pack-years: 48.00 Smoking status: Former smoker Tobacco type: cigarettes Second hand tobacco smoke exposure: Yes Additional smoking assessment comments: quit 2004 Alcohol intake: current Drinks per week: 2 Alcohol use details: beer Substance use: never Substance use type: does not use Do You Feel Safe in your Home?: Yes Lack of Transportation: No Lack of Food: Never True Current Housing: I Have Housing Concerned About Future Housing: No Difficulty Paying Gas/Electric Bills: No Difficulty Paying for Meds: No Currently Unemployed: No Education: Bachelor's Degree Difficulty w/ Childcare or Family Care: No Living arrangements: with family Gender identity (if verbalized by the patient): Male Sexual Orientation (if Verbalized by the Patient): Straight or Heterosexual Spiritual care concerns: No Exam Narrative: GENERAL: Well-appearing, In no acute distress, pleasant cooperative; pale appearing HEAD: Normoce
[2024-05-23] MEDS: SODIUM ZIRCONIUM CYCLOSILICATE 10 GM POWD.PACK PO (17:46)
[2024-05-23] MEDS: DEXTROSE 50% 25 GM/50 ML SYRINGE IV PUSH (17:46)
[2024-05-23] MEDS: INSULIN HUMAN REGULAR (*BKC) 100 UNITS/ML 10 UNITS IV PUSH (17:47)
[2024-05-23] MEDS: SODIUM CHLORIDE 0.9% IV 1,000 ML 999 ML IV CONT ×2 (17:52→18:52)
[2024-05-23 17:54] LABS: Magnesium 1.6 mg/dL (1.6-2.3)
[2024-05-23 18:00] LABS: Glucose Point of Care 92 mg/dl (65-105)
--- NOTE | 2024-05-23 19:35 | ADMGEN ---
This patient, Dhaval Cox, was admitted to Medical Room 254-01. Patient/family oriented to hospital policies and general routines including ID bracelet, bed and alarms, visiting hours, pain management, procedures, bathroom and other care routines, personal items, smoking policy, room service/diet, and visiting hours. Information on how to activate the Rapid Response Team has been discussed. Patient/Family are encouraged to report perceived risks to care and to ask questions if they do not understand what they are told or what they should do.
--- NOTE | 2024-05-23 21:56 | PM.IMHP ---
H&P: HPI History of Present Illness Date/Time: 05/23/24 21:56 Chief Complaint: Generalized weakness Narrative: 78-year-old male with past medical history of hypertension, diabetes history of DVT on Xarelto, anemia presented to the emergency room. Patient was in the emergency room when he was noted to have a potassium of 6.8 and creatinine which are jump all the way up to 4.2. Patient was treated in the emergency room in with the hyperkalemia protocol with glucose insulin bicarb drip IV hydration patient nephrology was consulted patient has history of chronic renal failure and sees a philanthropy officer as an outpatient. Patient was also diagnosed with hyperlipidemia and continues to take pravastatin new onset atrial fibrillation which patient has been diagnosed with and continue with Xarelto and metoprolol. Review of Systems Review of Systems: No fevers chills nausea vomiting. No double vision no blurry vision. No difficulty hearing or sinus complaints. No chest pain shortness of breath fever palpitation dizziness ankle swelling. No coughing wheezing chills. No nausea constipation diarrhea abdominal pain reflux. No urgency frequency of urination. No hematuria. No skin rash eczema. No anxiety depression difficulty sleeping. No bleeding gums enlarged glands. No muscle ache back pain joint stiffness. No loss of strength numbness headache tremor or loss of memory. [facility] Past Medical History Medical History Gaxiola's esophagus with dysplasia Blood clot in eye left eye. The patient states that he has to get injections frequently. 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 Mixed type COPD (chronic obstructive pulmonary disease) Psoriasis Retinal vein occlusion of left eye Surgical History Surgical History H/O colonoscopy with polypectomy History of lung biopsy History of sinus surgery Status post appendectomy Status post cholecystectomy Status post laparoscopic fundoplication Family History Family History Father Patient's father is , Onset Age: 84 Family history of lung disease, Onset Age: 84 Acute myocardial infarction Chronic obstructive pulmonary disease Mother Family history of cardiovascular disease, Onset Age: 64 Patient's mother is , Onset Age: 64 Congestive heart failure Social History Social History Social History: The patient lives with his and he has 1 child. He elects his , Rachel Cox, as his surrogate decision maker. 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 The patient used to smoke. He denies any alcohol or illicit drugs. Code Status: DNR/DNI Smoking packs per day: 1 Smoking cigarettes per day: 20.0 Years smoked: 48 Smoking pack-years: 48.00 Smoking status: Former smoker Tobacco type: cigarettes Second hand tobacco smoke exposure: Yes Additional smoking assessment comments: quit 2004 Alcohol intake: current Drinks per week: 2 Alcohol use details: beer Substance use: never Substance use type: does not use Do You Feel Safe in your Home?: Yes Lack of Transportation: No Lack of Food: Never True Current Housing: I Have Housing Concerned About Future Housing: No Difficulty Paying Gas/Electric Bills: No Difficulty Paying for Meds: No Currently Unemployed: No Education: Bachelor's Degree Difficulty w/ Childcare or Family Care: No Living arrangements: with family Gender identity (if verbalized by the patient): Male Sexual Orientation (if Verbalized by th
[2024-05-23 22:12] LABS: Hematocrit 25.8 % (42.0-52.0); Hemoglobin 7.5 g/dL (14.0-18.0); Mean Corpuscular HGB Conc 29.1 g/dl (32-36); Mean Corpuscular Hemoglobin 29.4 pg (26-34); Mean Corpuscular Volume 101.2 fl (80-100); Mean Platelet Volume 10.5 fl (7.4-10.4); Platelet Count Result 103 k/mm3 (150-375); Red Blood Count 2.55 M/mm3 (4.6-6.20); Red Cell Distribution Width 14.6 % (11.5-14.5); White Blood Count 3.5 K/mm3 (4.5-10.0)
[2024-05-23 22:27] LABS: Alanine Aminotransferase 56 U/L (6-50); Albumin Level 3.1 g/dL (3.5-5.1); Alkaline Phosphatase 439 U/L (38-126); Anion Gap 9 mmol/L (4-12); Aspartate Amino Transferase 35 U/L (17-59); Bilirubin,Total 1.6 mg/dL (0.2-1.3); Blood Urea Nitrogen 57 mg/dL (9-20); Calcium 7.9 mg/dL (8.4-10.2); Carbon Dioxide 16 mmol/L (22-30); Chloride 117 mmol/L (98-107); Estimated CRCL calculation 25 ml/min; Estimated Glomerular Filt Rate 20; Glucose 75 mg/dL (65-110); Potassium 6.7 mmol/L (3.4-5.0); Sodium 142 mmol/L (137-145)
[2024-05-23 22:37] LABS: Cholesterol 96 mg/dL (0-200); HDL Direct 19 mg/dL; Triglycerides 64 mg/dL (<150)
[2024-05-23 22:48] LABS: LDL Cholesterol Direct 63 mg/dL
[2024-05-24] VITALS (14 sets, daily range): BP systolic 133–147; BP diastolic 50–56; PULSE 60–104; RESP 18–20; TEMP 36.3–36.8; O2SAT 98–100; BMI 30.4
[2024-05-24 01:00] LABS: Eosinophil Urine None Seen % (None Seen); Urine Eos QC 2nd Tech Confirmed
[2024-05-24 01:17] LABS: Creatinine Urine 51.6 mg/dL
[2024-05-24 01:21] LABS: Sodium Urine Random 87 meq/L
[2024-05-24 01:47] LABS: Creatinine Urine 50.6 mg/dL; Total Protein Urine Random 18 mg/dL; Ur Ttl Prot Creatinine Ratio 0.36 mg/mg (0-0.20); Urea Random Urine 435 MG/DL
[2024-05-24 05:54] LABS: Hematocrit 28.9 % (42.0-52.0); Hemoglobin 8.4 g/dL (14.0-18.0); Mean Corpuscular HGB Conc 29.1 g/dl (32-36); Mean Corpuscular Hemoglobin 29.4 pg (26-34); Platelet Count Result 101 k/mm3 (150-375); Red Blood Count 2.86 M/mm3 (4.6-6.20); Red Cell Distribution Width 14.6 % (11.5-14.5)
[2024-05-24 06:07] LABS: Creatine Kinase 32 U/L (55-170)
[2024-05-24 06:26] LABS: Alanine Aminotransferase 63 U/L (6-50); Albumin Level 3.6 g/dL (3.5-5.1); Alkaline Phosphatase 481 U/L (38-126); Anion Gap 12 mmol/L (4-12); Aspartate Amino Transferase 46 U/L (17-59); Bilirubin,Total 2.4 mg/dL (0.2-1.3); Blood Urea Nitrogen 56 mg/dL (9-20); Calcium 8.2 mg/dL (8.4-10.2); Carbon Dioxide 13 mmol/L (22-30); Chloride 118 mmol/L (98-107); Estimated CRCL calculation 28 ml/min; Estimated Glomerular Filt Rate 22; Glucose 81 mg/dL (65-110); Potassium 7.2 mmol/L (3.4-5.0); Sodium 143 mmol/L (137-145)
--- NOTE | 2024-05-24 07:04 | PM.IMPN ---
Progress Note: A&P Assessment and Plan (1) Hyperkalemia: Code(s): E87.5 - Hyperkalemia Status: Acute Assessment and Plan: Likely chronic and related to patients current medications including lasix and candesartan - K 7.2 on am labs, patient received insulin 10 units IV, sodium bicarb 150 meq IV, and lokelma 10 gm PO - K now 5.9 following treatment - Transfer to IMU - Nephrology consulted - Continue telemetry - Avoid nephrotoxic medications - Monitor vital signs, I and O's - Monitor serum electrolytes and CBC (2) CKD (chronic kidney disease): Code(s): N18.9 - Chronic kidney disease, unspecified Status: Acute Assessment and Plan: BUN/Cr 68/3.77 on admission. Baseline Cr 1.5-1.8. - BUN/Cr continues to improve - IV NS - Nephrology consulted - Avoid nephrotoxic medications - Monitor vital signs, I and O's - Monitor serum electrolytes and CBC (3) Type 2 diabetes mellitus: Qualifiers: Diabetes mellitus complication status: without complication Diabetes mellitus terminal system operator insulin use: without terminal system operator use Qualified Code(s): E11.9 - Type 2 diabetes mellitus without complications Code(s): E11.9 - Type 2 diabetes mellitus without complications Status: Acute Assessment and Plan: - hypoglycemia protocol - POC blood glucose ACHS - home medication - sitagliptin - correct regimen ordered - mod dose TIDWM - A1C pending (4) Atrial fibrillation: Qualifiers: Atrial fibrillation type: paroxysmal Qualified Code(s): I48.0 - Paroxysmal atrial fibrillation Code(s): I48.91 - Unspecified atrial fibrillation Status: Acute Assessment and Plan: Newly diagnosed afib. - EKG 05/23: Ectopic atrial rhythm - Echo 10/22/23: LVEF 60-65% with grade I diastolic dysfunction - Medication: metoprolol 100 mg daily and Xarelto 10 mg daily - Telemetry (5) Hypertension: Code(s): I10 - Essential (primary) hypertension Status: Acute Assessment and Plan: Chronic, well controlled on home medications. - Metoprolol 100 mg daily - Continue to monitor Time Spent With Patient Time with patient: 25 - 35 minutes Subjective Date/time seen: 05/24/24 07:04 Interval history: 78-year-old male with past medical history of hypertension, diabetes history of DVT on Xarelto, anemia presented to the hospital for hyperkalemia and an DAVID seen on outpatient blood work ordered by Dr. Orona. Patient continued to have hyperkalemia on am labs requiring treatment. Patient received insulin 10 units IV, sodium bicarb 150 meq IV, and lokelma 10 gm PO this morning. Patient no longer meeting medical floor requirements and was transferred to IMU for continued treatment. Reassessed patients potassium this afternoon and it is downtrending with current treatment. Discussed patients case with nephrology Dr. Dykes and still unsure why patients potassium is elevated and not responding well to medical management. During patient assessment he is pleasant sitting on the side of bed with family at bedside. He has no complaints at this time, denying chest pain, palpitations, shortness of breath, weakness/numbness. Review of Systems Review of Systems: All systems reviewed & are unremarkable except as noted in HPI and below Exam Narrative: AF HR 72 RR 20 SpO2 98 BP 133/56 General: male in no acute respiratory distress who is nontoxic appearing, sitting on side of bed HEENT: Normocephalic. Atraumatic. Extraocular movement intact. Sclera clear and anicteric.No facial asymmetry. Chest: Lungs are clear to auscultation bilaterally. No wheezes or crackles. CV: Heart was regular rate and rhythm. S1/S2. No murmurs, gallops, or rubs. Abd: Abdomen was soft. Nontender. Nondistended. Positive bowel sounds. No organomegaly or masses. Ext: No clubbing, cyanosis, or edema. 2+ DP pulses bilaterally. Neuro: Patient is alert and oriented x4. Cranial nerves 2-12 are intact. Speech is naedr
[2024-05-24 07:44] LABS: Thyroid Stimulating Hormone Reflex 0.233 uIU/mL (0.465-4.68)
[2024-05-24] MEDS: INSULIN HUMAN REGULAR (*BKC) 100 UNITS/ML 10 UNITS IV PUSH (08:20)
[2024-05-24] MEDS: CALCIUM GLUC 1,000 MG/NS 50 ML 1,000 MG/50 ML BAG 100 MG IVPB (08:22)
[2024-05-24] MEDS: DEXTROSE 50% 25 GM/50 ML SYRINGE IV PUSH (08:22)
[2024-05-24] MEDS: SODIUM ZIRCONIUM CYCLOSILICATE 10 GM POWD.PACK PO ×4 (08:22→22:25)
[2024-05-24] MEDS: SODIUM BICARBONATE 8.4% 50 MEQ/50 ML SYRINGE IV PUSH (08:22)
[2024-05-24] MEDS: RIVAROXABAN 10 MG TABLET PO (08:35)
[2024-05-24] MEDS: PANTOPRAZOLE 40 MG TABLET PO ×2 (08:35→20:09)
[2024-05-24 08:36] LABS: Glucose Point of Care 80 mg/dl (65-105)
[2024-05-24] MEDS: UMECLIDINIUM/VILANTEROL 62.5-25 MCG ELLIPTA 1 PUFF INHALATION (09:00)
[2024-05-24 09:07] LABS: Free T4 Free Thyroxine Reflex 1.23 ng/dL (0.78-2.19)
[2024-05-24] MEDS: SODIUM BICARBONATE 8.4% 150 MEQ in DEXTROSE 5% 1,000 ML 950 ML 100 MEQ IV CONT (09:37)
[2024-05-24 11:57] LABS: Glucose Point of Care 97 mg/dl (65-105)
--- NOTE | 2024-05-24 12:15 | PM.CNNEP ---
Assessment and Plan Assessment and plan (1) Hyperkalemia: Code(s): E87.5 - Hyperkalemia Status: Acute Assessment and Plan: severity seems out of proportion to his DAVID furthermore, somewhat persistent since admission despite several rounds of medical management (lokelma, D50, IV insulin, IV bicarbonate, IV calcium...etc) etiology not clear... holding ARB therapy low K+ diet not on any potassium sparing diuretics not on any potassium supplements no rhabdo - CPK okay no new medications possible relative hypotension(?) -- PCP has been backing off of his BP medications other? on bicarbonate gtt (to help with acidosis and help shift K+) follow serial K+ levels (2) DAVID (acute kidney injury): Code(s): N17.9 - Acute kidney failure, unspecified Status: Acute Assessment and Plan: slow improvement noted evaluation to date: renal ultrasound without obstruction urine electrolytes non-prerenal urine eosinophils negative CPK low mild proteinuiria follow trend of repeat labs and UOP (3) Chronic kidney disease, stage 3: Code(s): N18.30 - Chronic kidney disease, stage 3 unspecified Status: Chronic Assessment and Plan: baseline creatinine runs ~ 1.3 - 1.8mg/dl this causes him to fluctuate between CKD stage 3A and stage 3B presumably due to hypertension, diabetes, and age-related change (4) Anemia: Code(s): D64.9 - Anemia, unspecified Status: Chronic Assessment and Plan: related in part to underlying CKD follows with Hem/Onc getting outpatient Epogen/Protcrit injections (5) Hypertension: Code(s): I10 - Essential (primary) hypertension Status: Chronic Assessment and Plan: reasonable control at this time holding ARB due to #1 and #2 follow trend of hemodynamics (6) Type 2 diabetes mellitus: Qualifiers: Diabetes mellitus intermediate insulin use: without parts counterman use Diabetes mellitus complication status: without complication Qualified Code(s): E11.9 - Type 2 diabetes mellitus without complications Code(s): E11.9 - Type 2 diabetes mellitus without complications Status: Chronic Assessment and Plan: follow accu-cheks glycemic control per hospitalists Long extensive discussion ( greater than 20 minutes) with both the patient as well as his at bedside regarding the severity of his hyperkalemia and the concern for achievement of stability in this electrolyte along with improvement in his renal function given his laboratory abnormalities discovered as an outpatient and confirmed by repeat testing in the ER as well as by AM labs today.. They both appeared to voice understanding. I will continue follow patient with you while remains hospitalized and make further recommendations as deemed necessary. Thank you for allowing me to participate in care of this patient. History of Present Illness Reason for Consult Consult date: 05/24/24 Reason for consult: acute renal failure (on chronic kidney disease) and hyperkalemia Chief Complaint Chief complaint: Hyperkalemia, DAVID History of Present Illness Narrative: The patient is a 78-year-old male with a past medical history as outlined below who presented to [facility] Emergency Room for further assessment of abnormal labs. The patient had recent blood work done by Dr. Orona for monitoring of his kidney function. These labs showed a marked decline in both his kidney function as well as his potassium level, specifically, his potassium was up to 6.8 and his creatinine was up to 4.2 mg/dL. Given the significant change in these parameters, he received a call from Dr. Manuel anderson office and was directed to the ER more so due to the severe hyperkalemia that would likely require some type of intervention. despite these laboratory abnormalities, the patient self has no acute complaints other than some mild fatigue.
--- NOTE | 2024-05-24 12:15 | P.CONNP_ITS ---
Assessment and Plan Assessment and plan (1) Hyperkalemia: Code(s): E87.5 - Hyperkalemia Status: Acute Assessment and Plan: * severity seems out of proportion to his DAVID * furthermore, somewhat persistent since admission despite several rounds of medical management (lokelma, D50, IV insulin, IV bicarbonate, IV c alcium...etc) * etiology not clear... * holding ARB therapy * low K+ diet * not on any potassium sparing diuretics * not on any potassium supplements * no rhabdo - CPK okay * no new medications * possible relative hypotension(?) -- PCP has been backing off of his BP medications * other? * on bicarbonate gtt (to help with acidosis and help shift K+) * follow serial K+ levels (2) DAVID (acute kidney injury): Code(s): N17.9 - Acute kidney failure, unspecified Status: Acute Assessment and Plan: * slow improvement noted * evaluation to date: * renal ultrasound without obstruction * urine electrolytes non-prerenal * urine eosinophils negative * CPK low * mild proteinuiria * follow trend of repeat labs and UOP (3) Chronic kidney disease, stage 3: Code(s): N18.30 - Chronic kidney disease, stage 3 unspecified Status: Chronic Assessment and Plan: * baseline creatinine runs ~ 1.3 - 1.8mg/dl * this causes him to fluctuate between CKD stage 3A and stage 3B * presumably due to hypertension, diabetes, and age-related change (4) Anemia: Code(s): D64.9 - Anemia, unspecified Status: Chronic Assessment and Plan: * related in part to underlying CKD * follows with Hem/Onc * getting outpatient Epogen/Protcrit injections (5) Hypertension: Code(s): I10 - Essential (primary) hypertension Status: Chronic Assessment and Plan: * reasonable control at this time * holding ARB due to #1 and #2 * follow trend of hemodynamics (6) Type 2 diabetes mellitus: Qualifiers: Diabetes mellitus usp insulin use: without long term care pharmacist use Diabetes mellitus complication status: without complication Qualified Code(s): E11.9 - Type 2 diabetes mellitus without complications Code(s): E11.9 - Type 2 diabetes mellitus without complications Status: Chronic Assessment and Plan: * follow accu-cheks * glycemic control per hospitalists Long extensive discussion ( greater than 20 minutes) with both the patient as well as his at bedside regarding the severity of his hyperkalemia and the concern for achievement of stability in this electrolyte along with improvement in his renal function given his laboratory abnormalities discovered as an outpatient and confirmed by repeat testing in the ER as well as by AM labs today.. They both appeared to voice understanding. I will continue follow patient with you while remains hospitalized and make further recommendations as deemed necessary. Thank you for allowing me to participate in care of this patient. History of Present Illness Reason for Consult Consult date: 05/24/24 Reason for consult: acute renal failure (on chronic kidney disease) and hyperkalemia Chief Complaint Chief complaint: Hyperkalemia, DAVID History of Present Illness Narrative: The patient is a 78-year-old male with a past medical history as outlined below who presented to [facility] Emergency Room for further assessment of abnormal labs. The patient had recent blood work done by Dr. Orona for monitoring of his kidney function. These labs showed a marked d
[2024-05-24 12:27] LABS: Total Triiodothyronine (T3) 1.38 NG/ML (0.97-1.69)
[2024-05-24 14:43] LABS: Anion Gap 8 mmol/L (4-12); Blood Urea Nitrogen 50 mg/dL (9-20); Calcium 8.3 mg/dL (8.4-10.2); Carbon Dioxide 21 mmol/L (22-30); Chloride 114 mmol/L (98-107); Estimated CRCL calculation 30 ml/min; Estimated Glomerular Filt Rate 24; Glucose 109 mg/dL (65-110); Potassium 5.9 mmol/L (3.4-5.0); Sodium 143 mmol/L (137-145)
[2024-05-24 15:49] LABS: Glucose Point of Care 113 mg/dl (65-105)
[2024-05-24 19:38] LABS: Anion Gap 10 mmol/L (4-12); Blood Urea Nitrogen 48 mg/dL (9-20); Carbon Dioxide 22 mmol/L (22-30); Chloride 112 mmol/L (98-107); Estimated CRCL calculation 30 ml/min; Estimated Glomerular Filt Rate 24; Glucose 114 mg/dL (65-110); Potassium 5.5 mmol/L (3.4-5.0); Sodium 144 mmol/L (137-145)
[2024-05-24 19:57] LABS: Hemoglobin A1C 4.5 % (<5.7)
[2024-05-24] MEDS: SODIUM BICARBONATE 8.4% 150 MEQ in DEXTROSE 5% 1,000 ML 950 ML 50 MEQ IV CONT (20:06)
[2024-05-24] MEDS: METOPROLOL SUCCINATE EXT REL 100 MG TABCR PO (20:09)
[2024-05-24] MEDS: PRAVASTATIN SODIUM 20 MG TABLET PO (20:09)
[2024-05-24] MEDS: FELODIPINE 5 MG TAB CR 10 MG PO (20:09)
[2024-05-24] MEDS: GABAPENTIN 300 MG CAPSULE PO (20:13)
[2024-05-25] VITALS (22 sets, daily range): BP systolic 126–150; BP diastolic 41–52; PULSE 54–86; RESP 16–22; TEMP 36.4–36.6; O2SAT 95–100
[2024-05-25 03:47] LABS: Hematocrit 24.7 % (42.0-52.0); Hemoglobin 7.5 g/dL (14.0-18.0); Mean Corpuscular HGB Conc 30.4 g/dl (32-36); Mean Corpuscular Volume 95.4 fl (80-100); Platelet Count Result 102 k/mm3 (150-375); Red Blood Count 2.59 M/mm3 (4.6-6.20); Red Cell Distribution Width 14.6 % (11.5-14.5); White Blood Count 3.5 K/mm3 (4.5-10.0)
[2024-05-25 04:02] LABS: Albumin Level 2.9 g/dL (3.5-5.1); Carbon Dioxide 37 mmol/L (22-30)
[2024-05-25 04:24] LABS: Alanine Aminotransferase 64 U/L (6-50); Alkaline Phosphatase 440 U/L (38-126); Anion Gap 4 mmol/L (4-12); Aspartate Amino Transferase 59 U/L (17-59); Bilirubin,Total 1.8 mg/dL (0.2-1.3); Blood Urea Nitrogen 42 mg/dL (9-20); Calcium 6.8 mg/dL (8.4-10.2); Chloride 97 mmol/L (98-107); Estimated CRCL calculation 37 ml/min; Estimated Glomerular Filt Rate 31; Potassium 4.8 mmol/L (3.4-5.0); Sodium 138 mmol/L (137-145)
[2024-05-25 04:26] LABS: Glucose 541 mg/dL (65-110)
[2024-05-25] MEDS: INSULIN HUMAN REGULAR (*BKC) 100 UNITS/ML 10 UNITS IV PUSH (04:49)
[2024-05-25 06:30] LABS: Glucose Point of Care 79 mg/dl (65-105)
[2024-05-25] MEDS: UMECLIDINIUM/VILANTEROL 62.5-25 MCG ELLIPTA 1 PUFF INHALATION (07:20)
--- NOTE | 2024-05-25 07:36 | PM.IMPN ---
Progress Note: A&P Assessment and Plan (1) Hyperkalemia: Code(s): E87.5 - Hyperkalemia Status: Acute Assessment and Plan: K 7.2 on 710 am labs, patient received insulin 10 units IV, lokelma 10 gm PO, and started on sodium bicarb drip. Transfered to IMU at that time. - K now 4.8 following treatment - Medications NS IV Lokelma 10 gm TID - Nephrology consulted etiology unclear: No new medications ARB therapy being held Low K diet Not on any K sparing diuretics or K supplements CK WNL - no rhabdo - Continue telemetry - Avoid nephrotoxic medications - Monitor vital signs, I and O's - Monitor serum electrolytes and CBC (2) CKD (chronic kidney disease): Code(s): N18.9 - Chronic kidney disease, unspecified Status: Acute Assessment and Plan: BUN/Cr 68/3.77 on admission. Baseline Cr 1.5-1.8. - BUN/Cr continues to improve - IV NS - Nephrology consulted - Avoid nephrotoxic medications - Monitor vital signs, I and O's - Monitor serum electrolytes and CBC (3) Type 2 diabetes mellitus: Qualifiers: Diabetes mellitus complication status: without complication Diabetes mellitus nursing home insulin use: without nursing home use Qualified Code(s): E11.9 - Type 2 diabetes mellitus without complications Code(s): E11.9 - Type 2 diabetes mellitus without complications Status: Acute Assessment and Plan: - hypoglycemia protocol - POC blood glucose ACHS - home medication - sitagliptin - correct regimen ordered - mod dose TIDWM - A1C 4.5 (4) Atrial fibrillation: Qualifiers: Atrial fibrillation type: paroxysmal Qualified Code(s): I48.0 - Paroxysmal atrial fibrillation Code(s): I48.91 - Unspecified atrial fibrillation Status: Acute Assessment and Plan: Newly diagnosed afib. - EKG 05/23: Ectopic atrial rhythm - Echo 10/22/23: LVEF 60-65% with grade I diastolic dysfunction - Medication: metoprolol 100 mg daily and Xarelto 10 mg daily - Telemetry (5) Hypertension: Code(s): I10 - Essential (primary) hypertension Status: Acute Assessment and Plan: Chronic, well controlled on home medications. - Metoprolol 100 mg daily - Continue to monitor Time Spent With Patient Time with patient: 25 - 35 minutes Subjective Date/time seen: 05/25/24 07:36 Interval history: 78-year-old male with past medical history of hypertension, diabetes history of DVT on Xarelto, anemia presented to the hospital for hyperkalemia and an DAVID seen on outpatient blood work ordered by Dr. Orona. Patient is pleasant lying comfortably in bed with at bedside. He has no complaints at this time, denying chest pain, shortness of breath, palpitations, weakness, dizziness/lightheadedness, nausea/vomiting, and changes in bowel/bladder. His potassium level has returned to normal range. Still unsure the exact etiology of patients hyperkalemia as he has not started any new medications, is not on supplementation, and no sparing diuretics. He denies any change in his diet that would result in elevated potassium as well. With his potassium improvement will discontinue the sodium bicarb drip and start him on normal saline. Review of Systems Review of Systems: All systems reviewed & are unremarkable except as noted in HPI and below Exam Narrative: AF HR 60 RR 18 SpO2 100 BP 131/47 General: male in no acute respiratory distress who is nontoxic appearing, sitting on side of bed Chest: Lungs are clear to auscultation bilaterally. No wheezes or crackles. CV: Heart was regular rate and rhythm. S1/S2. No murmurs, gallops, or rubs. Abd: Abdomen was soft. Nontender. Nondistended. Positive bowel sounds. No organomegaly or masses. Ext: No clubbing, cyanosis, or edema. 2+ DP pulses bilaterally. Objective Data Vital Signs Vital Signs: Vital Signs - 24 hr 05/24/24 09:01 05/24/24 08:00 05/24/24 08:00 Temperature Pulse Rate 70 Respir
[2024-05-25 08:20] LABS: Glucose Point of Care 94 mg/dl (65-105)
[2024-05-25] MEDS: PANTOPRAZOLE 40 MG TABLET PO ×2 (08:35→21:19)
[2024-05-25] MEDS: RIVAROXABAN 10 MG TABLET PO (08:35)
[2024-05-25] MEDS: SODIUM ZIRCONIUM CYCLOSILICATE 10 GM POWD.PACK PO ×3 (09:27→21:19)
[2024-05-25] MEDS: SODIUM CHLORIDE 0.9% IV 1,000 ML 75 ML IV CONT (09:29)
[2024-05-25 11:56] LABS: Glucose Point of Care 107 mg/dl (65-105)
--- NOTE | 2024-05-25 12:45 | PM.PNNEP ---
Progress Note: A&P Assessment and Plan (1) Hyperkalemia: Code(s): E87.5 - Hyperkalemia Status: Acute Assessment and Plan: improvement noted severity of this on admission seems out of proportion to his DAVID furthermore, was somewhat persistent on admission despite several rounds of medical management (lokelma, D50, IV insulin, IV bicarbonate, IV calcium...etc) etiology not clear... holding ARB therapy low K+ diet not on any potassium sparing diuretics not on any potassium supplements no rhabdo - CPK okay no new medications possible relative hypotension(?) -- PCP has been backing off of his BP medications other? off bicarbonate gtt - switched to normal saline follow serial K+ levels (2) DAVID (acute kidney injury): Code(s): N17.9 - Acute kidney failure, unspecified Status: Acute Assessment and Plan: slow improvement noted evaluation to date: renal ultrasound without obstruction urine electrolytes non-prerenal urine eosinophils negative CPK low mild proteinuiria follow trend of repeat labs and UOP (3) Chronic kidney disease, stage 3: Code(s): N18.30 - Chronic kidney disease, stage 3 unspecified Status: Chronic Assessment and Plan: baseline creatinine runs ~ 1.3 - 1.8mg/dl this causes him to fluctuate between CKD stage 3A and stage 3B presumably due to hypertension, diabetes, and age-related change (4) Anemia: Code(s): D64.9 - Anemia, unspecified Status: Chronic Assessment and Plan: related in part to underlying CKD follows with Hem/Onc getting outpatient Epogen/Protcrit injections (5) Hypertension: Code(s): I10 - Essential (primary) hypertension Status: Chronic Assessment and Plan: reasonable control at this time holding ARB due to #1 and #2 follow trend of hemodynamics (6) Type 2 diabetes mellitus: Qualifiers: Diabetes mellitus long line teamster insulin use: without long line teamster use Diabetes mellitus complication status: without complication Qualified Code(s): E11.9 - Type 2 diabetes mellitus without complications Code(s): E11.9 - Type 2 diabetes mellitus without complications Status: Chronic Assessment and Plan: follow accu-cheks glycemic control per hospitalists Will continue to follow. Subjective Date/time seen: 05/25/24 12:45 Interval history: Follow-up for hyperkalemia and acute kidney injury/acute renal failure on chronic kidney disease. Improvement in renal function as well as potassium with interventions to date; no apparent distress noted at the time of my visit; no issues/events overnight or earlier this morning; giveing rising CO2 level, bicarbonate gtt discontinued and switched to normal saline. Exam Narrative: General: elderly but WD/WN male in NAD Heart: normal S1 and S2; no rub Lungs: clear to auscultation Abdomen: soft, nontender, nondistended, positive bowel sounds Extremities: no cyanosis or clubbing; no edema Skin: warm and dry Objective Data Vital Signs Vital Signs: Vital Signs Temp Pulse Resp BP Pulse Ox O2 Del Method 05/25/24 12:00 61 Room Air 05/25/24 11:39 97.7 F 61 16 133/46 L 98 05/25/24 08:00 Room Air 05/25/24 10:00 64 05/25/24 08:00 61 05/25/24 07:55 97.9 F 60 18 131/47 L 100 05/25/24 07:20 71 18 05/25/24 07:20 71 18 95 Room Air 05/25/24 06:00 68 05/25/24 04:00 Room Air 05/25/24 04:00 59 L 05/25/24 04:47 97.7 F 58 L 22 H 129/48 L 97 05/25/24 02:00 62 05/25/24 00:00 Room Air 05/25/24 00:00 54 L 05/25/24 00:18 97.8 F 57 L 22 H 126/41 L 97 05/24/24 22:00 67 05/24/24 20:00 Room Air 05/24/24 20:00 69 05/24/24 20:40 97.7 F 69 20 147/55 H 99 05/24/24 20:09 65 05/24/24 18:00 70 05/24/24 16:00 80 05/24/24 16:00 Room
--- NOTE | 2024-05-25 12:45 | P.PNNP_ITS ---
Progress Note: A&P Assessment and Plan (1) Hyperkalemia: Code(s): E87.5 - Hyperkalemia Status: Acute Assessment and Plan: * improvement noted * severity of this on admission seems out of proportion to his DAVID * furthermore, was somewhat persistent on admission despite several rounds of medical management (lokelma, D50, IV insulin, IV bicarbonate, IV calcium...etc) * etiology not clear... * holding ARB therapy * low K+ diet * not on any potassium sparing diuretics * not on any potassium supplements * no rhabdo - CPK okay * no new medications * possible relative hypotension(?) -- PCP has been backing off of his BP medications * other? * off bicarbonate gtt - switched to normal saline * follow serial K+ levels (2) DAVID (acute kidney injury): Code(s): N17.9 - Acute kidney failure, unspecified Status: Acute Assessment and Plan: * slow improvement noted * evaluation to date: * renal ultrasound without obstruction * urine electrolytes non-prerenal * urine eosinophils negative * CPK low * mild proteinuiria * follow trend of repeat labs and UOP (3) Chronic kidney disease, stage 3: Code(s): N18.30 - Chronic kidney disease, stage 3 unspecified Status: Chronic Assessment and Plan: * baseline creatinine runs ~ 1.3 - 1.8mg/dl * this causes him to fluctuate between CKD stage 3A and stage 3B * presumably due to hypertension, diabetes, and age-related change (4) Anemia: Code(s): D64.9 - Anemia, unspecified Status: Chronic Assessment and Plan: * related in part to underlying CKD * follows with Hem/Onc * getting outpatient Epogen/Protcrit injections (5) Hypertension: Code(s): I10 - Essential (primary) hypertension Status: Chronic Assessment and Plan: * reasonable control at this time * holding ARB due to #1 and #2 * follow trend of hemodynamics (6) Type 2 diabetes mellitus: Qualifiers: Diabetes mellitus keno terminal operator insulin use: without jail use Diabetes mellitus complication status: without complication Qualified Code(s): E11.9 - Type 2 diabetes mellitus without complications Code(s): E11.9 - Type 2 diabetes mellitus without complications Status: Chronic Assessment and Plan: * follow accu-cheks * glycemic control per hospitalists Will continue to follow. Subjective Date/time seen: 05/25/24 12:45 Interval history: Follow-up for hyperkalemia and acute kidney injury/acute renal failure on chronic kidney disease. Improvement in renal function as well as potassium with interventions to date; no apparent distress noted at the time of my visit; no issues/events overnight or earlier this morning; giveing rising CO2 level, bicarbonate gtt discontinued and switched to normal saline. Exam Narrative: General: elderly but WD/WN male in NAD Heart: normal S1 and S2; no rub Lungs: clear to auscultation Abdomen: soft, nontender, nondistended, positive bowel sounds Extremities: no cyanosis or clubbing; no edema Skin: warm and dry Objective Data Vital Signs Vital Signs: Vital Signs Temp Pulse Resp BP Pulse Ox O2 Del Method 05/25/24 12:00 61 Room Air 05/25/24 11:39 97.7 F 61 16 133/46 L 98 05/25/24 08:00 Room Air 05/25/24 10:00 64
[2024-05-25] MEDS: ONDANSETRON INJ 4 MG/2 ML VIAL IV PUSH (15:10)
[2024-05-25 16:11] LABS: Anion Gap 9 mmol/L (4-12); Blood Urea Nitrogen 41 mg/dL (9-20); Calcium 8.1 mg/dL (8.4-10.2); Carbon Dioxide 20 mmol/L (22-30); Chloride 113 mmol/L (98-107); Estimated CRCL calculation 26 ml/min; Estimated Glomerular Filt Rate 24; Glucose 108 mg/dL (65-110); Potassium 5.7 mmol/L (3.4-5.0); Sodium 142 mmol/L (137-145)
[2024-05-25 17:16] LABS: Glucose Point of Care 111 mg/dl (65-105)
[2024-05-25] MEDS: SODIUM BICARBONATE 8.4% 75 MEQ in SODIUM CHLORIDE 0.45% 1,000 ML IV CONT (17:33)
[2024-05-25 17:57] LABS: Creatinine Urine 62.2 mg/dL
[2024-05-25 20:14] LABS: Glucose Point of Care 105 mg/dl (65-105)
[2024-05-25] MEDS: PRAVASTATIN SODIUM 20 MG TABLET PO (21:19)
[2024-05-25] MEDS: METOPROLOL SUCCINATE EXT REL 100 MG TABCR PO (21:19)
[2024-05-25] MEDS: FELODIPINE 5 MG TAB CR 10 MG PO (21:19)
[2024-05-25 23:58] LABS: Anion Gap 9 mmol/L (4-12); Blood Urea Nitrogen 36 mg/dL (9-20); Calcium 8.2 mg/dL (8.4-10.2); Carbon Dioxide 21 mmol/L (22-30); Chloride 111 mmol/L (98-107); Estimated CRCL calculation 28 ml/min; Estimated Glomerular Filt Rate 25; Glucose 99 mg/dL (65-110); Potassium 5.3 mmol/L (3.4-5.0); Sodium 141 mmol/L (137-145)
[2024-05-26] VITALS (19 sets, daily range): BP systolic 131–153; BP diastolic 47–53; PULSE 51–72; RESP 16–20; TEMP 36.4–36.8; O2SAT 94–98
[2024-05-26 04:22] LABS: Hematocrit 27.5 % (42.0-52.0); Hemoglobin 8.3 g/dL (14.0-18.0); Mean Corpuscular HGB Conc 30.2 g/dl (32-36); Mean Corpuscular Hemoglobin 29.3 pg (26-34); Mean Corpuscular Volume 97.2 fl (80-100); Mean Platelet Volume 10.9 fl (7.4-10.4); Platelet Count Result 117 k/mm3 (150-375); Red Blood Count 2.83 M/mm3 (4.6-6.20); Red Cell Distribution Width 14.4 % (11.5-14.5); White Blood Count 3.7 K/mm3 (4.5-10.0)
[2024-05-26 04:37] LABS: Alanine Aminotransferase 77 U/L (6-50); Albumin Level 3.4 g/dL (3.5-5.1); Alkaline Phosphatase 489 U/L (38-126); Anion Gap 10 mmol/L (4-12); Aspartate Amino Transferase 54 U/L (17-59); Blood Urea Nitrogen 33 mg/dL (9-20); Calcium 8.4 mg/dL (8.4-10.2); Carbon Dioxide 22 mmol/L (22-30); Chloride 110 mmol/L (98-107); Estimated CRCL calculation 26 ml/min; Estimated Glomerular Filt Rate 24; Glucose 99 mg/dL (65-110); Potassium 5.5 mmol/L (3.4-5.0); Sodium 142 mmol/L (137-145)
[2024-05-26] MEDS: UMECLIDINIUM/VILANTEROL 62.5-25 MCG ELLIPTA 1 PUFF INHALATION (07:56)
[2024-05-26 08:32] LABS: Glucose Point of Care 102 mg/dl (65-105)
[2024-05-26] MEDS: PANTOPRAZOLE 40 MG TABLET PO ×2 (08:38→21:29)
[2024-05-26] MEDS: RIVAROXABAN 10 MG TABLET PO (08:38)
[2024-05-26] MEDS: SODIUM BICARBONATE 8.4% 75 MEQ in SODIUM CHLORIDE 0.45% 1,000 ML IV CONT (08:38)
--- NOTE | 2024-05-26 09:07 | PM.IMPN ---
Progress Note: A&P Assessment and Plan (1) Hyperkalemia: Code(s): E87.5 - Hyperkalemia Status: Acute Assessment and Plan: K 7.2 on 7 am labs, patient received insulin 10 units IV, lokelma 10 gm PO, and started on sodium bicarb drip. Transfered to IMU at that time. - K now 5.0 following treatment - Medications Sodium bicarb 75 meq IV Lokelma 10 gm TID - Nephrology consulted etiology unclear: No new medications ARB therapy being held Low K diet Not on any K sparing diuretics or K supplements CK WNL - no rhabdo Aldosterone pending - Continue telemetry - Avoid nephrotoxic medications - Monitor vital signs, I and O's - Monitor serum electrolytes and CBC (2) CKD (chronic kidney disease): Code(s): N18.9 - Chronic kidney disease, unspecified Status: Acute Assessment and Plan: BUN/Cr 68/3.77 on admission. Baseline Cr 1.5-1.8. - BUN/Cr continues to improve - IV NS - Nephrology consulted - Avoid nephrotoxic medications - Monitor vital signs, I and O's - Monitor serum electrolytes and CBC (3) Type 2 diabetes mellitus: Qualifiers: Diabetes mellitus complication status: without complication Diabetes mellitus terminal computer operator insulin use: without care home use Qualified Code(s): E11.9 - Type 2 diabetes mellitus without complications Code(s): E11.9 - Type 2 diabetes mellitus without complications Status: Acute Assessment and Plan: - hypoglycemia protocol - POC blood glucose ACHS - home medication - sitagliptin - correct regimen ordered - mod dose TIDWM - A1C 4.5 (4) Atrial fibrillation: Qualifiers: Atrial fibrillation type: paroxysmal Qualified Code(s): I48.0 - Paroxysmal atrial fibrillation Code(s): I48.91 - Unspecified atrial fibrillation Status: Acute Assessment and Plan: Newly diagnosed afib. - EKG 05/23: Ectopic atrial rhythm - Echo 10/22/23: LVEF 60-65% with grade I diastolic dysfunction - Medication: metoprolol 100 mg daily and Xarelto 10 mg daily - Telemetry (5) Hypertension: Code(s): I10 - Essential (primary) hypertension Status: Acute Assessment and Plan: Chronic, well controlled on home medications. - Metoprolol 100 mg daily - Continue to monitor Time Spent With Patient Time with patient: 25 - 35 minutes Subjective Date/time seen: 05/26/24 09:07 Interval history: 78-year-old male with past medical history of hypertension, diabetes history of DVT on Xarelto, anemia presented to the hospital for hyperkalemia and an DAVID seen on outpatient blood work ordered by Dr. Orona. Patient is pleasant lying in bed with at bedside. He states he has not had a bowel movement since admission. Started on senna. Patient has no other complaints. He was evaluated by oncology for continued pancytopenia. Patient was previously offered a bone marrow biopsy but patient wanting to continue medical management. He remains on biweekly Procrit injections. Patients potassium was elevated this morning after stopping the bicarb drip. Spoke with Dr. Dykes and patient was restarted on bicarb drip and attempting to wean him off lokelma. Patients potassium has since returned to normal. Review of Systems Review of Systems: All systems reviewed & are unremarkable except as noted in HPI and below Exam Narrative: AF HR 61 RR 16 SpO2 96 BP 144/52 General: male in no acute respiratory distress who is nontoxic appearing, sitting on side of bed Chest: Lungs are clear to auscultation bilaterally. No wheezes or crackles. CV: Heart was regular rate and rhythm. S1/S2. No murmurs, gallops, or rubs. Abd: Abdomen was soft. Nontender. Nondistended. Positive bowel sounds. No organomegaly or masses. Ext: No clubbing, cyanosis, or edema. 2+ DP pulses bilaterally. Objective Data Vital Signs Vital Signs: Vital Signs - 24 hr 05/25/24 10:00 05/25/24 11:39 05/25/24 12:00 Temperature 97.7 F Pulse Rate
[2024-05-26 10:00] LABS: Anion Gap 8 mmol/L (4-12); Blood Urea Nitrogen 33 mg/dL (9-20); Calcium 8.2 mg/dL (8.4-10.2); Carbon Dioxide 22 mmol/L (22-30); Chloride 112 mmol/L (98-107); Estimated CRCL calculation 29 ml/min; Estimated Glomerular Filt Rate 26; Glucose 102 mg/dL (65-110); Lactate Dehydrogenase 135 U/L (120-246); Sodium 142 mmol/L (137-145)
[2024-05-26] MEDS: SODIUM ZIRCONIUM CYCLOSILICATE 10 GM POWD.PACK PO (10:15)
--- NOTE | 2024-05-26 10:32 | P.PNNP_ITS ---
Progress Note: A&P Assessment and Plan (1) Hyperkalemia: Code(s): E87.5 - Hyperkalemia Status: Acute Assessment and Plan: * fluctuations noted * severity of this on admission seems out of proportion to his DAVID * furthermore, was somewhat persistent on admission despite several rounds of medical management (lokelma, D50, IV insulin, IV bicarbonate, IV calcium...etc) * etiology not clear... * holding ARB therapy * low K+ diet * not on any potassium sparing diuretics * not on any potassium supplements * no rhabdo - CPK okay * no new medications * possible relative hypotension(?) -- PCP has been backing off of his BP medications * other? * on 1/2NS with 75meq HCO3 * scheduled lokelma -- attempt to wean * follow on TTKG calculation (serum/urine osmo pending) as well as renin and aldosterone levels * follow serial K+ levels (2) DAVID (acute kidney injury): Code(s): N17.9 - Acute kidney failure, unspecified Status: Acute Assessment and Plan: * slow improvement noted - possible new baseline at 2.4mg/dl(?) * evaluation to date: * renal ultrasound without obstruction * urine electrolytes non-prerenal * urine eosinophils negative * CPK low * mild proteinuiria * follow trend of repeat labs and UOP (3) Chronic kidney disease, stage 3: Code(s): N18.30 - Chronic kidney disease, stage 3 unspecified Status: Chronic Assessment and Plan: * baseline creatinine runs ~ 1.3 - 1.8mg/dl * this causes him to fluctuate between CKD stage 3A and stage 3B * presumably due to hypertension, diabetes, and age-related change * new baseline(?) (4) Anemia: Code(s): D64.9 - Anemia, unspecified Status: Chronic Assessment and Plan: * related in part to underlying CKD * follows with Hem/Onc * getting outpatient Epogen/Protcrit injections (5) Hypertension: Code(s): I10 - Essential (primary) hypertension Status: Chronic Assessment and Plan: * reasonable control at this time * holding ARB due to #1 and #2 * follow trend of hemodynamics (6) Type 2 diabetes mellitus: Qualifiers: Diabetes mellitus chcf insulin use: without chcf use Diabetes mellitus complication status: without complication Qualified Code(s): E11.9 - Type 2 diabetes mellitus without complications Code(s): E11.9 - Type 2 diabetes mellitus without complications Status: Chronic Assessment and Plan: * follow accu-cheks * glycemic control per hospitalists Will continue to follow. Subjective Date/time seen: 05/26/24 10:32 Interval history: Follow-up for hyperkalemia and acute kidney injury/acute renal failure on chronic kidney disease. Trend of labs in the last 24 hours demonstrate recurrent of hyperkalemia (although not as severe as on presentation/admission) with fluctuating renal function; on scheduled lokelma and IVFs adjusted to include some bicarbonate; no other issues/events overnight; no other acute complaints voiced -- attempting to wean off IVFs and lokelma today. Exam Narrative: General: elderly but WD/WN male in NAD Heart: normal S1 and S2; no rub Lungs: clear to auscultation Abdomen: soft, nontender, nondistended, positive bowel sounds Extremities: no cyanosis or clubbing; no edema Skin: warm and intact Objective Data Vital Signs Vital Signs:
--- NOTE | 2024-05-26 10:32 | PM.PNNEP ---
Progress Note: A&P Assessment and Plan (1) Hyperkalemia: Code(s): E87.5 - Hyperkalemia Status: Acute Assessment and Plan: fluctuations noted severity of this on admission seems out of proportion to his DAVID furthermore, was somewhat persistent on admission despite several rounds of medical management (lokelma, D50, IV insulin, IV bicarbonate, IV calcium...etc) etiology not clear... holding ARB therapy low K+ diet not on any potassium sparing diuretics not on any potassium supplements no rhabdo - CPK okay no new medications possible relative hypotension(?) -- PCP has been backing off of his BP medications other? on 1/2NS with 75meq HCO3 scheduled lokelma -- attempt to wean follow on TTKG calculation (serum/urine osmo pending) as well as renin and aldosterone levels follow serial K+ levels (2) DAVID (acute kidney injury): Code(s): N17.9 - Acute kidney failure, unspecified Status: Acute Assessment and Plan: slow improvement noted - possible new baseline at 2.4mg/dl(?) evaluation to date: renal ultrasound without obstruction urine electrolytes non-prerenal urine eosinophils negative CPK low mild proteinuiria follow trend of repeat labs and UOP (3) Chronic kidney disease, stage 3: Code(s): N18.30 - Chronic kidney disease, stage 3 unspecified Status: Chronic Assessment and Plan: baseline creatinine runs ~ 1.3 - 1.8mg/dl this causes him to fluctuate between CKD stage 3A and stage 3B presumably due to hypertension, diabetes, and age-related change new baseline(?) (4) Anemia: Code(s): D64.9 - Anemia, unspecified Status: Chronic Assessment and Plan: related in part to underlying CKD follows with Hem/Onc getting outpatient Epogen/Protcrit injections (5) Hypertension: Code(s): I10 - Essential (primary) hypertension Status: Chronic Assessment and Plan: reasonable control at this time holding ARB due to #1 and #2 follow trend of hemodynamics (6) Type 2 diabetes mellitus: Qualifiers: Diabetes mellitus tank terminal gauger insulin use: without tank terminal gauger use Diabetes mellitus complication status: without complication Qualified Code(s): E11.9 - Type 2 diabetes mellitus without complications Code(s): E11.9 - Type 2 diabetes mellitus without complications Status: Chronic Assessment and Plan: follow accu-cheks glycemic control per hospitalists Will continue to follow. Subjective Date/time seen: 05/26/24 10:32 Interval history: Follow-up for hyperkalemia and acute kidney injury/acute renal failure on chronic kidney disease. Trend of labs in the last 24 hours demonstrate recurrent of hyperkalemia (although not as severe as on presentation/admission) with fluctuating renal function; on scheduled lokelma and IVFs adjusted to include some bicarbonate; no other issues/events overnight; no other acute complaints voiced -- attempting to wean off IVFs and lokelma today. Exam Narrative: General: elderly but WD/WN male in NAD Heart: normal S1 and S2; no rub Lungs: clear to auscultation Abdomen: soft, nontender, nondistended, positive bowel sounds Extremities: no cyanosis or clubbing; no edema Skin: warm and intact Objective Data Vital Signs Vital Signs: Vital Signs Temp Pulse Resp BP Pulse Ox O2 Del Method 05/26/24 10:01 97.5 F L 61 16 144/52 H 96 05/26/24 08:00 63 05/26/24 08:00 Room Air 05/26/24 07:57 61 20 05/26/24 07:57 95 Room Air 05/26/24 07:54 97.6 F 58 L 16 134/47 L 98 05/26/24 06:00 53 L 05/26/24 04:00 57 L 05/26/24 04:00 98.3 F 56 L 16 131/53 L 95 05/26/24 04:15 58 L 18 95 Room Air 05/26/24 02:00 58 L 05/26/24 00:00 62 18 95 Room Air 05/26/24 00:00 62 05/25/24 23:53 97.5 F L 61 18 134/44 L 95 05/25/24 21:12 96 Room Air
[2024-05-26 12:50] LABS: Glucose Point of Care 102 mg/dl (65-105)
--- NOTE | 2024-05-26 14:15 | PDONCCN ---
[facility] - Date of Consult Date/Time: 05/26/24 14:15 Requesting Physician: Macy Rabago PA-C Primary Care Provider: Frandy Cespedes MD - Consult Narrative Reason for consult: Pancytopenia Narrative: Dhaval Cox is a 78 year old male with history of diabetes, hypertension, pancytopenia and anemia of chronic kidney disease admitted to the hospital with elevated potassium of 6.8 and creatinine temp up to 4.2. He was started on glucose insulin bicarb drip with improvement in the potassium. Patient was last seen in the office on May 03 and was started on biweekly Procrit injection. He was due to receive another Procrit injection now. Complain of mild tiredness and fatigue but denies any bleeding and bruising. His labs showed improvement in potassium now down to 5.0 and creatinine went down to 2.4. WBC 3.7 hemoglobin 8.3 and platelets [id number]. He denies any bleeding and bruising. No other new complaints. Review of Systems - Review of Systems All systems reviewed & are unremarkable except as noted in HPI and [facility] Medical History: Medical History (Last Reviewed 05/23/24 @ 17:03 by Elly Lopez MD) Gaxiola's esophagus with dysplasia Blood clot in eye left eye. The patient states that he has to get injections frequently. 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 Mixed type COPD (chronic obstructive pulmonary disease) Psoriasis Retinal vein occlusion of left eye Surgical History: Surgical History (Last Reviewed 05/23/24 @ 17:03 by Elly Lopez MD) H/O colonoscopy with polypectomy History of lung biopsy History of sinus surgery Status post appendectomy Status post cholecystectomy Status post laparoscopic fundoplication Family History: Family History (Last Reviewed 05/23/24 @ 17:03 by Elly Lopez MD) Father Patient's father is , Onset Age: 84 Family history of lung disease, Onset Age: 84 Acute myocardial infarction Chronic obstructive pulmonary disease Mother Family history of cardiovascular disease, Onset Age: 64 Patient's mother is , Onset Age: 64 Congestive heart failure - Social History Social History: Social History (Last Reviewed 05/23/24 @ 17:03 by Elly Lopez MD) Gender Identity: Gender identity (if verbalized by the patient): Male Sexual Orientation: Sexual Orientation (if Verbalized by the Patient): Straight or Heterosexual Alcohol Use: Alcohol intake: current Drinks per week: 2 Alcohol use details: beer Substance Use: Substance use: never Substance use type: does not use Others: Spiritual care concerns: No Living Arrangements: Living arrangements: with family Smoking Status: Smoking status: Former smoker Tobacco type: cigarettes Second hand tobacco smoke exposure: Yes Approximate Smoking End Date: 2004 Smoking Pack-years: Smoking packs per day: 1 Smoking cigarettes per day: 20.0 Years smoked: 48 Smoking pack-years: 40.00 Comments: Additional smoking assessment comments: quit 2004 Social Determinants of Health: Do You Feel Safe in your Home?: Yes Has the Lack of Transportation Kept You From Medical Appointments or From Getting Medications?: No Within the Past 12 Months, Were You Worried Whether Your Food Would Run Out Before You Got Money to Buy More?: Never True What is Your Housing Situation Today?: I Have Housing Are You Worried That in the Next 2 Months, You May Not Have Your Own Housing to Live In?: No Do You Have Trouble Paying Your Heating Or Electricity Bill?: No Do You Have Trouble Paying For Medicines?: No Are You Currently Unemployed and Looking for Work?: No [facility]
[2024-05-26] MEDS: EPOETIN ALFA-EPBX 20,000 UNITS/ML VIAL 20000 UNITS SUB-Q (15:04)
[2024-05-26 15:22] LABS: Anion Gap 9 mmol/L (4-12); Blood Urea Nitrogen 31 mg/dL (9-20); Calcium 8.1 mg/dL (8.4-10.2); Carbon Dioxide 22 mmol/L (22-30); Chloride 110 mmol/L (98-107); Estimated CRCL calculation 29 ml/min; Estimated Glomerular Filt Rate 26; Glucose 99 mg/dL (65-110); Sodium 141 mmol/L (137-145)
[2024-05-26 16:45] LABS: Glucose Point of Care 95 mg/dl (65-105)
[2024-05-26] MEDS: ONDANSETRON INJ 4 MG/2 ML VIAL IV PUSH (17:00)
[2024-05-26] MEDS: CALCIUM CARBONATE (TUMS) 500 MG (200 MG ELEMENTAL) PO (17:40)
[2024-05-26 19:59] LABS: Glucose Point of Care 102 mg/dl (65-105)
[2024-05-26] MEDS: SENNA/DOCUSATE SODIUM TABLET 1 TAB PO (21:28)
[2024-05-26] MEDS: FELODIPINE 5 MG TAB CR 10 MG PO (21:29)
[2024-05-26] MEDS: METOPROLOL SUCCINATE EXT REL 100 MG TABCR PO (21:29)
[2024-05-26] MEDS: PRAVASTATIN SODIUM 20 MG TABLET PO (21:30)
[2024-05-26] MEDS: GABAPENTIN 300 MG CAPSULE PO (21:32)
[2024-05-26 21:57] LABS: Anion Gap 8 mmol/L (4-12); Blood Urea Nitrogen 29 mg/dL (9-20); Calcium 8.4 mg/dL (8.4-10.2); Carbon Dioxide 22 mmol/L (22-30); Chloride 111 mmol/L (98-107); Estimated CRCL calculation 29 ml/min; Estimated Glomerular Filt Rate 26; Glucose 107 mg/dL (65-110); Sodium 141 mmol/L (137-145)
[2024-05-27] VITALS (12 sets, daily range): BP systolic 118–152; BP diastolic 53–65; PULSE 52–82; RESP 18–20; TEMP 36.2–36.4; O2SAT 94–98
[2024-05-27] MEDS: CALCIUM CARBONATE (TUMS) 500 MG (200 MG ELEMENTAL) PO (00:57)
[2024-05-27 05:40] LABS: Hematocrit 26.9 % (42.0-52.0); Mean Corpuscular HGB Conc 29.7 g/dl (32-36); Mean Corpuscular Volume 97.5 fl (80-100); Platelet Count Result 114 k/mm3 (150-375); Red Blood Count 2.76 M/mm3 (4.6-6.20); Red Cell Distribution Width 14.4 % (11.5-14.5); White Blood Count 3.5 K/mm3 (4.5-10.0)
[2024-05-27 05:58] LABS: Alanine Aminotransferase 76 U/L (6-50); Albumin Level 3.4 g/dL (3.5-5.1); Alkaline Phosphatase 482 U/L (38-126); Anion Gap 10 mmol/L (4-12); Aspartate Amino Transferase 58 U/L (17-59); Bilirubin,Total 1.8 mg/dL (0.2-1.3); Blood Urea Nitrogen 27 mg/dL (9-20); Calcium 8.4 mg/dL (8.4-10.2); Carbon Dioxide 21 mmol/L (22-30); Chloride 109 mmol/L (98-107); Estimated CRCL calculation 29 ml/min; Estimated Glomerular Filt Rate 26; Glucose 95 mg/dL (65-110); Potassium 5.3 mmol/L (3.4-5.0); Sodium 140 mmol/L (137-145)
[2024-05-27] MEDS: UMECLIDINIUM/VILANTEROL 62.5-25 MCG ELLIPTA 1 PUFF INHALATION (07:46)
[2024-05-27 08:57] LABS: Glucose Point of Care 104 mg/dl (65-105)
[2024-05-27] MEDS: SODIUM BICARBONATE TAB 650 MG TABLET PO (10:09)
[2024-05-27] MEDS: RIVAROXABAN 10 MG TABLET PO (10:09)
[2024-05-27] MEDS: PANTOPRAZOLE 40 MG TABLET PO (10:09)
--- NOTE | 2024-05-27 10:40 | P.PNNP_ITS ---
Progress Note: A&P Assessment and Plan (1) Hyperkalemia: Code(s): E87.5 - Hyperkalemia Status: Acute Assessment and Plan: * relatively stable * severity of this on admission seems out of proportion to his DAVID * furthermore, was somewhat persistent on admission despite several rounds of medical management (lokelma, D50, IV insulin, IV bicarbonate, IV calcium...etc) * etiology not clear... * holding ARB therapy * low K+ diet * not on any potassium sparing diuretics * not on any potassium supplements * no rhabdo - CPK okay * no new medications * possible relative hypotension(?) -- PCP has been backing off of his BP medications * other? * was on 1/2NS with 75meq HCO3 -- currently off; on oral sodium bicarbonate * scheduled lokelma -- weaned to once a day * follow-up on TTKG calculation (serum/urine osmo pending) as well as renin and aldosterone levels * follow serial K+ levels (2) DAVID (acute kidney injury): Code(s): N17.9 - Acute kidney failure, unspecified Status: Acute Assessment and Plan: * slow improvement noted - possible new baseline at 2.4mg/dl(?) * evaluation to date: * renal ultrasound without obstruction * urine electrolytes non-prerenal * urine eosinophils negative * CPK low * mild proteinuiria * follow trend of repeat labs and UOP (3) Chronic kidney disease, stage 3: Code(s): N18.30 - Chronic kidney disease, stage 3 unspecified Status: Chronic Assessment and Plan: * baseline creatinine runs ~ 1.3 - 1.8mg/dl * this causes him to fluctuate between CKD stage 3A and stage 3B * presumably due to hypertension, diabetes, and age-related change * new baseline(?) (4) Anemia: Code(s): D64.9 - Anemia, unspecified Status: Chronic Assessment and Plan: * related in part to underlying CKD * follows with Hem/Onc * getting outpatient Epogen/Protcrit injections (5) Hypertension: Code(s): I10 - Essential (primary) hypertension Status: Chronic Assessment and Plan: * reasonable control at this time * holding ARB due to #1 and #2 * follow trend of hemodynamics (6) Type 2 diabetes mellitus: Qualifiers: Diabetes mellitus complication status: without complication 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 Orona in clinic soon (as well as to follow-up on pending testing). Will continue to follow. Subjective Date/time seen: 05/27/24 10:40 Interval history: Follow-up for hyperkalemia and acute kidney injury/acute renal failure on c hronic kidney disease. Potassium and renal function has been relatively stable off IVFs and on once a day dosing of lokelma; no apparent distress voiced at the time of my visit; no other complaints to report; no issues/events overnight or earlier this morning. Exam Narrative: General: elderly but WD/WN male in NAD Heart: normal S1 and S2; no rub
--- NOTE | 2024-05-27 10:40 | PM.PNNEP ---
Progress Note: A&P Assessment and Plan (1) Hyperkalemia: Code(s): E87.5 - Hyperkalemia Status: Acute Assessment and Plan: relatively stable severity of this on admission seems out of proportion to his DAVID furthermore, was somewhat persistent on admission despite several rounds of medical management (lokelma, D50, IV insulin, IV bicarbonate, IV calcium...etc) etiology not clear... holding ARB therapy low K+ diet not on any potassium sparing diuretics not on any potassium supplements no rhabdo - CPK okay no new medications possible relative hypotension(?) -- PCP has been backing off of his BP medications other? was on 1/2NS with 75meq HCO3 -- currently off; on oral sodium bicarbonate scheduled lokelma -- weaned to once a day follow-up on TTKG calculation (serum/urine osmo pending) as well as renin and aldosterone levels follow serial K+ levels (2) DAVID (acute kidney injury): Code(s): N17.9 - Acute kidney failure, unspecified Status: Acute Assessment and Plan: slow improvement noted - possible new baseline at 2.4mg/dl(?) evaluation to date: renal ultrasound without obstruction urine electrolytes non-prerenal urine eosinophils negative CPK low mild proteinuiria follow trend of repeat labs and UOP (3) Chronic kidney disease, stage 3: Code(s): N18.30 - Chronic kidney disease, stage 3 unspecified Status: Chronic Assessment and Plan: baseline creatinine runs ~ 1.3 - 1.8mg/dl this causes him to fluctuate between CKD stage 3A and stage 3B presumably due to hypertension, diabetes, and age-related change new baseline(?) (4) Anemia: Code(s): D64.9 - Anemia, unspecified Status: Chronic Assessment and Plan: related in part to underlying CKD follows with Hem/Onc getting outpatient Epogen/Protcrit injections (5) Hypertension: Code(s): I10 - Essential (primary) hypertension Status: Chronic Assessment and Plan: reasonable control at this time holding ARB due to #1 and #2 follow trend of hemodynamics (6) Type 2 diabetes mellitus: Qualifiers: Diabetes mellitus complication status: without complication Diabetes mellitus custodial insulin use: without termite control technician use Qualified Code(s): E11.9 - Type 2 diabetes mellitus without complications Code(s): E11.9 - Type 2 diabetes mellitus without complications Status: Chronic Assessment and Plan: follow accu-cheks glycemic control per hospitalists Would not be opposed to discharge from renal perspective; lokelma samples provided (plan to continue 10g once a day on discharge) along with oral sodium bicarbonate; hold candesartan on discharge; plan repeat labs early next to ensure stability in K+ and renal function will follow-up with Dr. Orona in clinic soon (as well as to follow-up on pending testing). Will continue to follow. Subjective Date/time seen: 05/27/24 10:40 Interval history: Follow-up for hyperkalemia and acute kidney injury/acute renal failure on chronic kidney disease. Potassium and renal function has been relatively stable off IVFs and on once a day dosing of lokelma; no apparent distress voiced at the time of my visit; no other complaints to report; no issues/events overnight or earlier this morning. Exam Narrative: General: elderly but WD/WN male in NAD Heart: normal S1 and S2; no rub Lungs: clear to auscultation Abdomen: soft, nontender, nondistended, positive bowel sounds Extremities: no cyanosis or clubbing; no edema Skin: no rash or nodules Objective Data Vital Signs Vital Signs: Vital Signs Temp Pulse Resp BP Pulse Ox O2 Del Method 05/27/24 10:33 97.6 F 58 L 18 118/63 98 05/27/24 07:46 97.1 F L 59 L 20 152/65 H 96 05/27/24 07:47 96 Room Air 05/27/24 05:55 58 L 05/27/24 04:00 59 L 05/27/24 04:00 58 L 20 96 Room Air
[2024-05-27 12:00] LABS: Glucose Point of Care 124 mg/dl (65-105)
--- NOTE | 2024-05-27 13:45 | PM.DS ---
DS: Admitting Diagnosis Discharge Date 05/27/24 Admitting Diagnosis Hyperkalemia CKD Type 2 diabetes Afib Hypertension DS: Discharge Diagnosis Discharge Diagnosis (1) Hyperkalemia: Code(s): E87.5 - Hyperkalemia Status: Acute (2) CKD (chronic kidney disease): Code(s): N18.9 - Chronic kidney disease, unspecified Status: Acute (3) Type 2 diabetes mellitus: Qualifiers: Diabetes mellitus complication status: without complication Diabetes mellitus superintendent marine oil terminal insulin use: without residential use Qualified Code(s): E11.9 - Type 2 diabetes mellitus without complications Code(s): E11.9 - Type 2 diabetes mellitus without complications Status: Chronic (4) Atrial fibrillation: Qualifiers: Atrial fibrillation type: paroxysmal Qualified Code(s): I48.0 - Paroxysmal atrial fibrillation Code(s): I48.91 - Unspecified atrial fibrillation Status: Acute (5) Hypertension: Code(s): I10 - Essential (primary) hypertension Status: Chronic DS: Summary Hospital Course Reason for hospitalization: Hyperkalemia CKD Type 2 diabetes Afib Hypertension Hospital Course: 78-year-old male with past medical history of hypertension, diabetes history of DVT on Xarelto, anemia presented to the hospital for hyperkalemia and an DAVID seen on outpatient blood work ordered by Dr. Orona. These labs showed a marked decline in his kidney function and a rise in his potassium level, specifically his potassium was 6.8 and creatinine was 4.3. Given the signifcant change the patient was instructed to report to the hospital for evaluation. Throughout admission patient had no complaints, he denied chest pain, shortness of breath, palpitations, fatigue, weakness, nausea/vomiting. In the ED patient received medical management for his hyperkalemia, but given the elevation and the DAVID on CKD he was admitted to the hospital. Nephrology was consulted. Potassium was 7.2 on 7/10 am labs, patient received insulin 10 units IV, lokelma 10 gm PO, and started on sodium bicarb drip. Transfered to IMU at that time. With that management the potassium downtrended, however after stopping the bicarb drip the potassium sameer once more. He was then started at a lower dosed bicarb drip and remained on the lokelma. On am labs potassium was 5.3. Prior to discharge discussed patient with Nephrology, Dr. Dykes. Patient is to be discharged on lokelma and sodium bicarb with plans of close outpatient follow up and following of his labs. Etiology of hyperkalemia remains unclear as patients ARB was held, he was on low K diet, not on any K supplements or sparing diuretics, no rhabdo, and no new meds. Patient discharged home in a stable condition. He is to continue the lokelma and sodium bicarb as prescribed. He will obtain outpatient CMP to reassess potassium levels and follow up with Dr. Orona in 1 week. Status at Discharge Functional status at discharge: independent ambulation Time Spent with Patient Time attestation: Total time spent providing and/or coordinating discharge services: Time spent: Greater than 30 minutes Exam Narrative: AF HR 58 RR 18 SpO2 98 BP 118/63 General: male in no acute respiratory distress who is nontoxic appearing, sitting on side of bed Chest: Lungs are clear to auscultation bilaterally. No wheezes or crackles. CV: Heart was regular rate and rhythm. S1/S2. No murmurs, gallops, or rubs. Abd: Abdomen was soft. Nontender. Nondistended. Positive bowel sounds. No organomegaly or masses. Ext: No clubbing, cyanosis, or edema. 2+ DP pulses bilaterally. DS: Data Data Completed and Pending Completed studies during hospitalization: Renal US Chest XR Labs on day of discharge: Labs from last 24 hours 05/27/24 05/27/24 05/27/24 11:40 07:44 04:50 WBC 3.5 L RBC 2.76 L Hgb 8.0 L Hct 26.9 L MCV 97.5 MCH 29.0 MCHC 29.7 L RDW 14.4 Plt Count 114 L MPV 11.0 H Sod
[2024-05-29 10:54] LABS: Haptoglobin 254 mg/dL (43-212)
[2024-05-31 22:38] LABS: PRA 1.12 ng/mL/h (0.25-5.82)
== END 2024-05-27 14:35 | disposition home or self-care (01) | DRG 641 ==
LOC: ANHED 16:51 → ANH2MED 18:51 → ANHIMU 05-24 07:46
PROVIDERS: Internal Medicine Nephrology; Preventive Medicine Aerospace Medicine; Admitting Provider Internal Medicine; Emergency Provider Emergency Medicine; PCP Family Medicine; Visit Provider Student in an Organized Health Care Education/Training Program
DX: E87.5 Hyperkalemia (principal); N17.9 Acute kidney failure, unspecified; I48.20 Chronic atrial fibrillation, unspecified; H34.8122 Central retinal vein occlusion, left eye, stable; D61.818 Other pancytopenia; I12.9 Hypertensive chronic kidney disease with stage 1 through stage 4 chronic kidney disease, or unspecified chronic kidney disease; N18.30 Chronic kidney disease, stage 3 unspecified; D63.1 Anemia in chronic kidney disease; E11.22 Type 2 diabetes mellitus with diabetic chronic kidney disease; E86.0 Dehydration; E21.3 Hyperparathyroidism, unspecified; E78.5 Hyperlipidemia, unspecified; J44.9 Chronic obstructive pulmonary disease, unspecified; K21.9 Gastro-esophageal reflux disease without esophagitis; K22.70 Barrett's esophagus without dysplasia; M54.59 Other low back pain; G89.29 Other chronic pain; Z79.01 Long term (current) use of anticoagulants; Z86.010 Personal history of colon polyps; Z86.718 Personal history of other venous thrombosis and embolism; Z87.891 Personal history of nicotine dependence
CPT/HCPCS: 36415; 71046; 76775; 80048; 80053; 80061; 81001; 81050; 82088; 82533; 82550; 82570; 82948; 83010; 83036; 83615; 83735; 83930; 83935; 84132; 84133; 84156; 84244; 84300; 84439; 84443; 84480; 84540; 85025; 85027; 85999; 93005; 94640; 96361; 96374; 96375; 96376; 99285; A9270; G0378; J0612; J1815; J2405; J7030; J7070; Q5105

== ENCOUNTER 2024-06-01 13:18 | Outpatient (CLI) | payer MEDICARE, BC, SELFPAY ==
[2024-06-01 13:56] LABS: Alanine Aminotransferase 76 U/L (6-50); Albumin Level 3.7 g/dL (3.5-5.1); Alkaline Phosphatase 403 U/L (38-126); Anion Gap 12 mmol/L (4-12); Aspartate Amino Transferase 61 U/L (17-59); Bilirubin,Total 1.3 mg/dL (0.2-1.3); Blood Urea Nitrogen 44 mg/dL (9-20); Carbon Dioxide 25 mmol/L (22-30); Chloride 106 mmol/L (98-107); Estimated Glomerular Filt Rate 25; Glucose 108 mg/dL (65-110); Potassium 3.8 mmol/L (3.4-5.0); Sodium 143 mmol/L (137-145)
== END 2024-06-01 13:19 | disposition home or self-care (01) ==
LOC: ANHLAB 13:21
PROVIDERS: PCP Family Medicine; Visit Provider Student in an Organized Health Care Education/Training Program
DX: E87.5 Hyperkalemia (principal)
CPT/HCPCS: 36415; 80053

== ENCOUNTER 2024-08-02 08:08 | Outpatient (CLI) | payer MEDICARE, BC, SELFPAY ==
--- NOTE | ~2024-08-02 | CT_ITS ---
EXAMINATION: CT abdomen wo con DATE: 08/02/2024 08:27 INDICATION: Abnormal levels of other serum enzymes TECHNIQUE: Computed tomography (CT) of the abdomen was performed with 100 mL Omnipaque-350 intravenou s contrast. Automated exposure control and iterative reconstruction technique were employed. The dose -length product was 927.33 mGy-cm. COMPARISON: None FINDINGS: Tiny right pleural effusion. There is dependent atelectasis in the lingula and right lower lobe. Hear t size is normal. There is decreased attenuation the blood pool relative to myocardium consistent wit h anemia. Atherosclerotic coronary artery calcification. No pericardial effusion. Cholecystectomy clips the gallbladder fossa. There is an intrauterine extra hepatic ductal dilation w ith the common bile duct measuring up to 16 mm in maximal diameter. There are 2 nodular intraluminal soft tissue densities likely representing obstructing gallstones at the distal common bile duct which measured 12 mm and 10 mm in maximal diameter. There is prominent inflammatory stranding about the he ad of the pancreas and extending caudally into the root of the mesentery where there is diffuse groun dglass opacity suspicious for acute interstitial pancreatitis. The groundglass opacity partially obsc ures the margins of multiple mildly lymph nodes in the central mesentery. This could be inflammatory/ reactive in etiology although differential would include sclerosing mesenteritis or lymphoma. Pancrea tic parenchymal appears normal. No acute peripancreatic fluid collections. Spleen and bilateral adrenal glands are normal. Bilateral renal cysts the largest exophytic cyst at the lower pole of the right kidney measuring 7.3 cm. 9 mm hyperdense proteinaceous/hemorrhagic cyst at the posterior low probability left kidney. Visu alized bowels including the appendix are normal with no obstruction. More prominently enlarged gastro hepatic, periportal and portacaval lymph nodes which measure up to 2.1 cm,, 2.2 cm and 1.8 cm respect ively maximal short axis diameter on the axial images. Atherosclerotic calcification along the normal caliber abdominal aorta and common iliac arteries. Moderate lumbar and lower thoracic spondylosis wi th bridging osteophytes at multiple levels in the lower thoracic spine consistent with diffuse idiopa thic skeletal hyperostosis (DISH). IMPRESSION: 1. Choledocholithiasis with intra and extra hepatic ductal or ductal dilation and likely secondary ac elizabeth interstitial pancreatitis. 2. Prominent groundglass opacity at the root of the mesentery with mesenteric, hepatic, periportal an d portacaval lymphadenopathy which could be inflammatory/reactive in etiology although differential w ould include facet disease or lymphoma. 3. Tiny right pleural effusion. Line 4. Small sliding-type hiatal hernia Reviewed, dictated and finalized at location B. IMPRESSION: 1. Choledocholithiasis with intra and extra hepatic ductal or ductal dilation a nd likely secondary acute interstitial pancreatitis. 2. Prominent groundglass opacity at the root of the mesentery with mesenteric, hepatic, periportal and portacaval lymphadenopathy which could be inflammatory/ reactive in etiology although differential would include facet disease or lymph marianela. 3. Tiny right pleural effusion. Line 4. Small sliding-type hiatal hernia
== END 2024-08-02 08:09 | disposition home or self-care (01) ==
LOC: ANHIMG 08:10
PROVIDERS: PCP Family Medicine; Visit Provider Family Medicine
DX: R74.8 Abnormal levels of other serum enzymes (principal); K44.9 Diaphragmatic hernia without obstruction or gangrene; R91.8 Other nonspecific abnormal finding of lung field
CPT/HCPCS: 74150

== ENCOUNTER 2024-08-07 08:29 | Inpatient (IN) | payer MEDICARE, BC, SELFPAY ==
[2024-08-07] VITALS (9 sets, daily range): BP systolic 109–135; BP diastolic 50–64; PULSE 50–89; RESP 14–18; TEMP 36.2–36.6; O2SAT 95–100
--- NOTE | ~2024-08-07 | US_ITS ---
COMPLETE ABDOMINAL ULTRASOUND Ordering provider: Arthur Rowland MD History: . Choledocolithiasis . Comparison: None. FINDINGS: LIVER: Normal size and echotexture. No focal hepatic lesions or perihepatic fluid collections are garfield ntified. Portal vein flow is normal. GALLBLADDER: Surgically removed. BILIARY DUCTS: No evidence for intrahepatic biliary dilation. Common bile duct measures 14 mm in diam eter.. Common hepatic duct measures 6.9 mm. PANCREAS: Hyperechoic and enlarged. The pancreatic duct measures 0.3 cm. . UPPER ABDOMINAL AORTA: Normal in caliber. IVC: Patent. FREE FLUID: None. IMPRESSION: Hyperechoic enlarged pancreas. Possibility of pancreatitis cannot be excluded. Further evaluation wit h CT scan is advised. Slightly prominent pancreatic duct. Slightly dilated CBD with no definite stones seen. Reviewed, dictated and finalized at location A. IMPRESSION: Hyperechoic enlarged pancreas. Possibility of pancreatitis cannot be excluded. Further evaluation with CT scan is advised. Slightly prominent pancreatic duct. Slightly dilated CBD with no definite stones seen.
--- NOTE | ~2024-08-07 | XR_ITS ---
EXAMINATION: XR ERCP DATE: 08/08/2024 11:59 INDICATION: Gallstones. TECHNIQUE: 4 spot fluoroscopic images of the right upper quadrant were obtained during endoscopic ret rograde cholangiopancreatography (ERCP). Fluoroscopy exposure time was 240 seconds. COMPARISON: CT abdomen 08/02/2024 FINDINGS: The endoscope is in the second portion of the duodenum. There is contrast opacification of the biliary tree with dilatation of the common duct. There are multiple stones in the common duct. IMPRESSION: 1. Choledocholithiasis with dilated common duct. Please refer to the ERCP procedure note for addition al details. Reviewed, dictated and finalized at location A. IMPRESSION: 1. Choledocholithiasis with dilated common duct. Please refer to the ERCP proce dure note for additional details.
--- NOTE | 2024-08-07 08:58 | ECG_ITS ---
Test Date: 2024-08-07 09:52:59 Measurements Intervals [place] Rate: 55 P: -82 WA: 182 QRS: -12 QRSD: 94 T: 14 QT: 437 QTc: 419 Interpretive Statements SINUS BRADYCARDIA BASELINE ARTIFACT- I, II, AVR, AVL, AVF, V1-V6 BORDERLINE ECG Compared to ECG 05/23/2024 16:09:03 ECTOPIC ATRIAL RHYTHM NO LONGER PRESENT Electronically Signed On 08-07-2024 12:07:49 CDT by Roberto Carbajal D.O.
--- NOTE | 2024-08-07 09:21 | PC.NURSE ---
pt in ultrasound at this time.
--- NOTE | 2024-08-07 09:49 | ED.GENADULT ---
HPI - General Adult General Chief complaint: Recheck/Abnormal Lab/Rx Stated complaint: office sent him after CT scan Time Seen by Provider: 08/07/24 08:38 History of Present Illness HPI narrative: This is a 78-year-old male presenting to ED for an abnormal CT scan. Patient had screening lab work performed by his primary care physician which showed elevated bilirubin of 5.5. CT abdomen pelvis performed on November 01 that showed choledocholithiasis with intra and extrahepatic ductal dilation possibly due to acute interstitial pancreatitis, as well as ground-glass opacities at the root of the mesentery with lymphadenopathy. Patient was for to Dr. Tashi Wright who then referred the patient to the emergency department. The patient himself has no physical complaints or abdominal pain at this time. Patient states that over the last several months he has been having intermittent chills and rigors but they only last for 12 hours at a time and then he feels well otherwise. No nausea vomiting diarrhea fevers chest pain breathing or abdominal pain Related Data Home Medications Medication Instructions Recorded Confirmed etanercept 50 mg/mL (1 mL) 50 mg subcut WEEKLY 09/11/19 06/21/24 subcutaneous syringe (Enbrel) hydrocodone 10 mg-acetaminophen 1 tablet PO TID PRN Pain 06/17/20 06/21/24 325 mg tablet rivaroxaban 10 mg tablet (Xarelto) 10 mg PO DAILY 06/17/20 06/21/24 mecobalamin (vitamin B12) 5,000 5,000 mcg PO QPM 04/21/23 06/21/24 mcg disintegrating tablet Allergies Allergy/AdvReac Type Severity Reaction Status Date / Time No Known Allergies Allergy Verified 08/07/24 08:30 [facility] Past Medical History Medical History Gaxiola's esophagus with dysplasia Blood clot in eye left eye. The patient states that he has to get injections frequently. 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) Psoriasis Retinal vein occlusion of left eye Surgical History Surgical History H/O colonoscopy with polypectomy History of lung biopsy History of sinus surgery Status post appendectomy Status post cholecystectomy Status post laparoscopic fundoplication Family History Family History Father Patient's father is , Onset Age: 84 Family history of lung disease, Onset Age: 84 Acute myocardial infarction Chronic obstructive pulmonary disease Mother Family history of cardiovascular disease, Onset Age: 64 Patient's mother is , Onset Age: 64 Congestive heart failure Social History Social History Social History: The patient lives with his and he has 1 child. He elects his , Rachel Cox, as his surrogate decision maker. 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 The patient used to smoke. He denies any alcohol or illicit drugs. Code Status: DNR/DNI Smoking packs per day: 1 Smoking cigarettes per day: 20.0 Years smoked: 48 Smoking pack-years: 48.00 Smoking status: Former smoker Tobacco type: cigarettes Second hand tobacco smoke exposure: Yes Additional smoking assessment comments: quit 2004 Alcohol intake: current Drinks per week: 2 Alcohol use details: beer Substance use: never Substance use type: does not use Do You Feel Safe in your Home?: Yes Lack of Transportation: No Lack of Food: Never True Current Housing: I Have Housing Concerned About Future Housing: No Difficulty Paying Gas/Electric Bills: No Difficulty Paying for Meds: No Currently Unemployed: No 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
[2024-08-07] MEDS: SODIUM CHLORIDE 0.9% IV 2,000 ML 999 ML IV CONT (09:58)
[2024-08-07 10:06] LABS: Basophils Percent Auto 0.7 % (0.2-1.2); Eosinophils Absolute Auto 0.1 K/mm3 (0-0.3); Eosinophils Percent Auto 1.9 % (0-4.4); Hemoglobin 8.4 g/dL (14.0-18.0); Immature Granulocyte Absolute 0.32 K/mm3 (0.00-0.031); Immature Granulocyte Percent A 7.7 % (0-0.5); Lymphocytes Absolute Auto 0.91 K/mm3 (0.9-3.2); Mean Corpuscular Hemoglobin 29.5 pg (26-34); Mean Corpuscular Volume 98.2 fl (80-100); Mean Platelet Volume 10.2 fl (7.4-10.4); Monocytes Absolute Auto 0.3 K/mm3 (0.1-0.6); Monocytes Percent Auto 8.2 % (2.6-8.5); Neutrophils Absolute Auto 2.5 K/mm3 (1.3-6.7); Neutrophils Percent Auto 59.5 % (45.5-73.1); Platelet Count Result 150 k/mm3 (150-375); Red Blood Count 2.85 M/mm3 (4.6-6.20); Red Cell Distribution Width 15.8 % (11.5-14.5); White Blood Count 4.1 K/mm3 (4.5-10.0)
[2024-08-07 10:16] LABS: INR 1.3; Prothrombin Time 16.4 Seconds (11.1-14.7)
[2024-08-07 10:17] LABS: Lactic Acid Reflex 1.2 mmol/L (0.7-2.0); Partial Thromboplastin Time 32.1 Seconds (22.3-36.8)
[2024-08-07 10:18] LABS: Alanine Aminotransferase 63 U/L (6-50); Albumin Level 3.3 g/dL (3.5-5.1); Alkaline Phosphatase 488 U/L (38-126); Anion Gap 6 mmol/L (4-12); Aspartate Amino Transferase 55 U/L (17-59); Bilirubin,Total 3.3 mg/dL (0.2-1.3); Blood Urea Nitrogen 34 mg/dL (9-20); Calcium 8.1 mg/dL (8.4-10.2); Carbon Dioxide 27 mmol/L (22-30); Chloride 106 mmol/L (98-107); Estimated Glomerular Filt Rate 39; Glucose 90 mg/dL (65-110); Lipase 301 U/L (23-300); Magnesium 1.8 mg/dL (1.6-2.3); Potassium 4.2 mmol/L (3.4-5.0); Sodium 139 mmol/L (137-145)
[2024-08-07 10:39] LABS: Add Urine Microscopic? YES; Appearance Urine Clear (Clear); Bacteria Urine None Seen /hpf; Bilirubin Urine 1+ (Negative); Blood Urine Negative (Negative); Color Urine Dark Yellow (Yellow); Glucose Urine UA 2+ mg/dL (Negative); Ketones Urine Negative (Negative); Leukocyte Esterase Ur Negative LEU/UL (Negative); Need Manual Microscopic Reviewed; Nitrate Urine Negative (Negative); Non Pathogenic Casts 0-2; Protein Urine Trace mg/dL (Negative); Specific Grav Ur 1.016 (1.001-1.035); Squamous Epithelial Cell Urine None Seen /hpf (Few); WBC Urine 0-5 /hpf (0-3)
[2024-08-07] MEDS: metroNIDAZOLE 500 MG/ISO 100ML 500 MG/100 ML BAG 100 MG IVPB ×2 (11:26→21:27)
--- NOTE | 2024-08-07 12:23 | ADMGEN ---
This patient, Dhaval Cox, was admitted to [facility] Surg Room 328-01. Patient/family oriented to hospital policies and general routines including ID bracelet, bed and alarms, visiting hours, pain management, procedures, bathroom and other care routines, personal items, smoking policy, room service/diet, and visiting hours. Information on how to activate the Rapid Response Team has been discussed. Patient/Family are encouraged to report perceived risks to care and to ask questions if they do not understand what they are told or what they should do.
--- NOTE | 2024-08-07 15:04 | PM.IMHP ---
H&P: HPI History of Present Illness Date/Time: 08/07/24 15:04 Chief Complaint: abnormal imaging Narrative: 78-year-old male with past medical history of hypertension, hyperlipidemia, diabetes history of DVT on Xarelto, pancytopenia follows Dr. Benoit, atrial fibrillation on anticoagulation, COPD on intermittent O2 supplementation (2.5 L NC), and CKD presents to the ED for abnormal CT. Per chart review, patient had labs drawn on 07/12 which showed a elevated total bili and LFTs. He was then sent for a CT abdomen on 08/02 which showed choledocholithiasis with intra and extra hepatic ductal or ductal dilation and likely secondary acute interstitial pancreatitis. CT also showed prominent ground glass opacity at the root of the mesentery with mesenteric, hepatic, periportal and portacaval lymphadenopathy which could be inflammatory/reactive in etiology although differential would include facet disease or lymphoma. Patients PCP Dr. Cespedes advised patient to go to the ER, however patient did not go to ER and instead waited for appointment with Dr. Wright. Patient reports to the hospital from Dr. Caal, General surgery office for further evaluation of choledocholithiasis on imaging and elevated liver enzymes on labs from outside facility. He states he has been having intermittent chills and nausea for a few months, occurring 1-2x per month. He denies any abdominal pain, fevers, or vomiting/diarrhea. He also notes that his has been telling him he appears yellow in color. Patient denies chest pain, shortness of breath, palpitation, lightheadedness and dizziness. ED workup: CBC with WBC 4.1, H/H 8.4/28.0 (appears at baseline), and PLT 150. PT/INR 16.4/1.3. CMP with BUN/Cr 34/1.70 (baseline) otherwise unremarkable. Tot bili 3.3, AST 55, ALT 63, Alk phos 488 (07/11/24 tot bili 4.3, AST 71, ALT 69, alk phos 553). Lactic acid 1.2. Lipase 301. UA non concerning for infection. Blood cultures obtained. Abdomen US: Hyperechoic enlarged pancreas. Possibility of pancreatitis cannot be excluded. Further evaluation with CT scan is advised. Slightly prominent pancreatic duct. Slightly dilated CBD with no definite stones seen. Started on rocephin and flagyl IV in the ED. GI consulted. Review of Systems Review of Systems: All systems reviewed & are unremarkable except as noted in HPI and below PMFSH Past Medical History Medical History Gaxiola's esophagus with dysplasia Blood clot in eye left eye. The patient states that he has to get injections frequently. 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) Psoriasis Retinal vein occlusion of left eye Surgical History Surgical History H/O colonoscopy with polypectomy History of lung biopsy History of sinus surgery Status post appendectomy Status post cholecystectomy Status post laparoscopic fundoplication Family History Family History Father Patient's father is , Onset Age: 84 Family history of lung disease, Onset Age: 84 Acute myocardial infarction Chronic obstructive pulmonary disease Mother Family history of cardiovascular disease, Onset Age: 64 Patient's mother is , Onset Age: 64 Congestive heart failure Social History Social History (Updated 08/07/24 @ 17:05 by Macy Rabago PA-C) Social History: The patient lives with his and he has 1 child. He elects his , Rachel Cox, as his surrogate decision maker. 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 The patient used to smoke. He denies any alcohol or illicit drugs. Code Status:
--- NOTE | 2024-08-07 16:24 | WPDGICN ---
Assessment and Plan Assessment and plan (1) Elevated liver enzymes: Code(s): R74.8 - Abnormal levels of other serum enzymes Status: Acute Assessment and Plan: noted findings of CT scan, plan is ercp tomorrow to assess bile duct, it seems that he has stones in bile duct and pancreatitis however denies pain and lipase 300 will continue to monitor (2) Choledocholithiasis: Code(s): K80.50 - Calculus of bile duct without cholangitis or cholecystitis without obstruction Status: Acute Assessment and Plan: ercp tomorrow he is post jenny (3) Chronic kidney disease, stage 3a: Code(s): N18.31 - Chronic kidney disease, stage 3a Status: Acute Assessment and Plan: near baseline (4) Pancreatitis: Code(s): K85.90 - Acute pancreatitis without necrosis or infection, unspecified Status: Acute GI Consult Note Consult date/time: 08/07/24 16:24 Reason for consult: elevated liver enzymes, choledocholithiasis HPI: Dhaval Cox is a 78 year old male with history of hypertension, diabetes history of DVT on Xarelto, CKD stage 3 and gerd (last egd few months ago with no major findings- s/p rodrigo). He has been having intermittent chills for last few months, probably 1-2 times a month and his doctor obtained blood work that revealed elevated liver enzymes and also CT scan few days ago that showed choledocholithiasis with intra and extra hepatic ductal or ductal dilation and likely secondary acute interstitial pancreatitis. CT also showed prominent ground glass opacity at the root of the mesentery with mesenteric, hepatic, periportal and portacaval lymphadenopathy which could be inflammatory/reactive in etiology. Patient was instructed to go to ER, labs WBC 4.1, H/H 8.4/28.0 (near baseline), and PLT 150. PT/INR 16.4/1.3. crea 1.70. Tot bili 3.3, AST 55, ALT 63, Alk phos 488 (07/11/24 tot bili 4.3, AST 71, ALT 69, alk phos 553). Lactic acid 1.2. Lipase 301. He denies abdominal pain or weight loss. Review of Systems Constitutional: Constitutional: Reports chills Eyes: Eyes: Denies blurry vision ENT: Reports Normal hearing present, Denies headache(s) and Denies neck pain Cardiovascular: Cardiovascular: Denies chest pain and Denies dyspnea Respiratory: Respiratory: Denies dyspnea Gastrointestinal: Gastrointestinal: Reports no additional gastrointestinal complaints Genitourinary: Genitourinary: Denies dysuria Musculoskeletal: Musculoskeletal: Denies neck pain Integumentary/Breasts: Skin/Breast: Denies dry skin Neurologic: Reports Normal hearing present, Denies headache(s) and Denies weakness Psychiatric: Psychiatric: Denies anxiety Endocrine: Endocrine: Denies change in body appearance Allergic/Immunologic: Allergic/Immunologic: Denies urticaria PMFSH Past Medical History Medical History Gaxiola's esophagus with dysplasia Blood clot in eye left eye. The patient states that he has to get injections frequently. 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
[2024-08-07 16:58] LABS: Glucose Point of Care 98 mg/dl (65-105)
[2024-08-07] MEDS: METOPROLOL SUCCINATE EXT REL 50 MG TABCR PO (17:36)
[2024-08-07] MEDS: hydrALAZINE HCL 50 MG TABLET PO (17:37)
[2024-08-07] MEDS: FELODIPINE 5 MG TAB CR 10 MG PO (17:38)
[2024-08-07 19:53] LABS: Glucose Point of Care 87 mg/dl (65-105)
[2024-08-07] MEDS: PANTOPRAZOLE 40 MG TABLET PO (20:09)
[2024-08-08] VITALS (11 sets, daily range): BP systolic 112–146; BP diastolic 51–67; PULSE 51–78; RESP 14–22; TEMP 36.1–36.7; O2SAT 94–100; BMI 31.1
[2024-08-08] MEDS: metroNIDAZOLE 500 MG/ISO 100ML 500 MG/100 ML BAG 100 MG IVPB ×2 (05:17→14:01)
[2024-08-08 07:20] LABS: Basophils Percent Auto 0.3 % (0.2-1.2); Eosinophils Absolute Auto 0.1 K/mm3 (0-0.3); Eosinophils Percent Auto 2.2 % (0-4.4); Hematocrit 28.1 % (42.0-52.0); Hemoglobin 8.2 g/dL (14.0-18.0); Immature Granulocyte Absolute 0.06 K/mm3 (0.00-0.031); Immature Granulocyte Percent A 1.6 % (0-0.5); Lymphocytes Absolute Auto 0.93 K/mm3 (0.9-3.2); Lymphocytes Percent Auto 25.1 % (18.3-44.2); Mean Corpuscular HGB Conc 29.2 g/dl (32-36); Mean Corpuscular Hemoglobin 28.5 pg (26-34); Mean Corpuscular Volume 97.6 fl (80-100); Mean Platelet Volume 10.5 fl (7.4-10.4); Monocytes Absolute Auto 0.3 K/mm3 (0.1-0.6); Monocytes Percent Auto 6.7 % (2.6-8.5); Neutrophils Absolute Auto 2.4 K/mm3 (1.3-6.7); Neutrophils Percent Auto 64.1 % (45.5-73.1); Platelet Count Result 157 k/mm3 (150-375); Red Blood Count 2.88 M/mm3 (4.6-6.20); Red Cell Distribution Width 15.6 % (11.5-14.5); White Blood Count 3.7 K/mm3 (4.5-10.0)
[2024-08-08 07:32] LABS: Alanine Aminotransferase 54 U/L (6-50); Albumin Level 3.1 g/dL (3.5-5.1); Alkaline Phosphatase 472 U/L (38-126); Anion Gap 7 mmol/L (4-12); Aspartate Amino Transferase 47 U/L (17-59); Bilirubin,Total 3.4 mg/dL (0.2-1.3); Blood Urea Nitrogen 24 mg/dL (9-20); Calcium 8.6 mg/dL (8.4-10.2); Carbon Dioxide 23 mmol/L (22-30); Chloride 110 mmol/L (98-107); Estimated CRCL calculation 50 ml/min; Estimated Glomerular Filt Rate 49; Glucose 87 mg/dL (65-110); Lipase 161 U/L (23-300); Potassium 4.3 mmol/L (3.4-5.0); Sodium 140 mmol/L (137-145)
[2024-08-08 07:56] LABS: Glucose Point of Care 85 mg/dl (65-105)
[2024-08-08 08:10] LABS: Anisocytosis 1+; Platelet Estimate Adequate (Adequate)
[2024-08-08 08:11] LABS: Hypochromasia 1+; Microcytosis 1+ (NORMAL); Schistocytes None Seen; Stomatocytes 1+
--- NOTE | 2024-08-08 08:44 | PM.IMPN ---
Progress Note: A&P Assessment and Plan (1) Pancreatitis: Code(s): K85.90 - Acute pancreatitis without necrosis or infection, unspecified Status: Acute Assessment and Plan: Patient reports to the hospital from Dr. Caal, General surgery office for further evaluation of choledocholithiasis on imaging and elevated liver enzymes on labs from outside facility. Not meeting SIRs criteria Lipase 301, on admission. Tot bili 3.3, AST 55, ALT 63, alk phos 488 on admission, downtrended from 07/11 with tot bili 4.3, AST 71, ALT 69, alk phos 553. Tot bili 3.4, AST 47, ALT 54, alk phos 472 on am labs. Blood cultures obtained on 08/07: pending Holding pravastatin for elevated liver enzymes S/p cholecystectomy Abdomen CT 08/02: 1. Choledocholithiasis with intra and extra hepatic ductal or ductal dilation and likely secondary acute interstitial pancreatitis. 2. Prominent groundglass opacity at the root of the mesentery with mesenteric, hepatic, periportal and portacaval lymphadenopathy which could be inflammatory/reactive in etiology although differential would include facet disease or lymphoma. Abdomen US: Hyperechoic enlarged pancreas. Possibility of pancreatitis cannot be excluded. Further evaluation with CT scan is advised. Slightly prominent pancreatic duct. Slightly dilated CBD with no definite stones seen. Antibiotics: Rocephin and flagyl started on 08/07 Diet: clear liquid GI consulted, plan for ERCP tomorrow. 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 Per nephrology note on 05/27 baseline runs 1.3-1.8. - Avoid nephrotoxic medications - Renally dose medications - Monitor I/O (7) Hypertension: Code(s): I10 - Essential (primary) hypertension Status: Chronic Assessment and Plan: Chronic, well controlled on home medications. - Lasix 80 mg daily - Hydralazine 50 mg BID - Felodipine 10 mg daily - Metoprolol 100 mg daily, patient has been running in the 50s will lower dose to 50 mg tonight - monitor (8) Atrial fibrillation: Qualifiers: Atrial fibrillation type: paroxysmal Qualified Code(s): I48.0 - Paroxysmal atrial fibrillation Code(s): I48.91 - Unspecified atrial fibrillation Status: Acute Assessment and Plan: EKG on admission, sinus bradycardia. - Metoprolol 100 mg daily, patient has been running in the 50s will lower dose to 50 mg tonight - xarelto 10 mg daily on hold for patients ERCP tomorrow, continue SCDs - monitor (9) Pancytopenia: Code(s): D61.818 - Other pancytopenia Status: Acute Assessment and Plan: Chronic, appears at baseline. Patient being followed by Dr. Benoit, last seen 07/03. (10) Obesity (BMI 30-39.9): Code(s): E66.9 - Obesity, unspecified Status: Acute Assessmen
--- NOTE | 2024-08-08 10:30 | WPDANESEPPF ---
Anes - Initial Pre Proc Eval Procedure: Operation Date: 08/08/24 11:30 Proposed Procedures p Endoscopic Retro Cholangiopancreatogram - Nabil Lewis MD Date/Time: 08/08/24 10:30 Surgeon: Macy Rabago PA-C Pre Op Diagnosis: Elevated LFTS Patient Data Age: 78 Gender: M Height: 1.83 m Weight: 104.1 kg Last Vital Signs Temp 98.0 F 08/08/24 08:00 Pulse 51 L 08/08/24 08:02 Resp 18 08/08/24 08:00 BP 132/62 08/08/24 08:00 Pulse Ox 95 08/08/24 08:00 O2 Del Method Room Air 08/08/24 08:00 O2 Flow Rate 2.5 08/07/24 08:36 Allergies Allergy/AdvReac Type Severity Reaction Status Date / Time No Known Allergies Allergy Verified 08/07/24 12:31 Home Medications Medication Instructions Recorded Confirmed Type etanercept 50 mg/mL (1 mL) 50 mg subcut WEEKLY 09/11/19 08/07/24 History subcutaneous syringe (Enbrel) hydrocodone 10 mg-acetaminophen 1 tablet PO TID PRN Pain 06/17/20 08/07/24 History 325 mg tablet rivaroxaban 10 mg tablet (Xarelto) 10 mg PO DAILY 06/17/20 08/07/24 History mecobalamin (vitamin B12) 5,000 5,000 mcg PO QPM 04/21/23 08/07/24 History mcg disintegrating tablet gabapentin 300 mg capsule 300 mg PO TID PRN Neuropathy Pain 07/14/23 08/07/24 Rx (Neurontin) #90 caps polyethylene glycol 3350 17 17 g PO DAILY #510 grams 02/18/24 08/07/24 Rx gram/dose oral powder (Miralax) triamcinolone acetonide 0.1 % 1 applic topical BID PRN 04/26/24 08/07/24 Rx topical cream dermatitis #454 grams umeclidinium 62.5 mcg-vilanterol See Rx Instructions .Route 05/04/24 08/07/24 Rx 25 mcg/actuation powdr for .COMPLEX #60 ea inhalation (Anoro Ellipta) guanfacine 1 mg tablet 1 mg PO QHS #90 tabs 05/19/24 08/07/24 Rx esomeprazole magnesium 40 mg 40 mg PO Q12H #180 caps 06/28/24 08/07/24 Rx capsule,delayed release felodipine 10 mg tablet,extended 10 mg PO QPM #90 tabs 06/28/24 08/07/24 Rx release 24 hr metoprolol succinate 100 mg 100 mg PO QPM #90 tabs 06/28/24 08/07/24 Rx tablet,extended release 24 hr pravastatin 20 mg tablet 20 mg PO QPM #90 tabs 06/28/24 08/07/24 Rx zolpidem 5 mg tablet (Ambien) 5 mg PO QHS PRN insomnia #30 tabs 07/10/24 08/07/24 Rx hydralazine 50 mg tablet 50 mg PO BID #90 tabs 07/21/24 08/07/24 Rx furosemide 80 mg tablet 80 mg PO DAILY 08/07/24 08/07/24 History sitagliptin phosphate 50 mg tablet 50 mg PO DAILY 08/07/24 08/07/24 History (Isabela) Laboratory Tests 08/07/24 08/07/24 08/07/24 09:55 16:55 19:25 WBC RBC Hgb Hct MCV MCH MCHC RDW Plt Count MPV Immature Gran % (Auto) Neut % (Auto) Lymph % (Auto) [place] % (Auto) Eos % (Auto) Baso % (Auto) Lymph # (Auto) [place] # (Auto) Eos # (Auto) Baso # (Auto) Abs Immat Gran (auto) Absolute Neuts (auto) Absolute Nucleated RBC Nucleated RBC % Platelet Estimate Hypochromasia Anisocytosis Microcytosis Stomatocytes Schistocytes Sodium Potassium Chloride Carbon Dioxide Anion Gap BUN Creatinine Estim Creat Clear Calc Estimated GFR Glucose POC Capillary Glucose 98 mg/dl 87 mg/dl (65-105) (65-105) Calcium Total Bilirubin AST ALT Alkaline Phosphatase Total Protein Albumin Lipase Urine Color Dark yellow (Yellow) Urine Appearance Clear (Clear) Urine pH 6.0 (5.0-9.0) Ur Specific [place] 1.016 (1.001-1.035) Urine Protein Trace mg/dL
[2024-08-08 10:35] LABS: Glucose Point of Care 77 mg/dl (65-105)
[2024-08-08] MEDS: LACTATED RINGERS 1,000 ML 150 ML IV CONT (10:36)
[2024-08-08] MEDS: INDOMETHACIN 50 MG SUPP.RECT RECTAL (10:55)
[2024-08-08 12:08] LABS: Glucose Point of Care 91 mg/dl (65-105)
--- NOTE | 2024-08-08 15:38 | PM.DS ---
DS: Admitting Diagnosis Discharge Date 08/08/2024 Admitting Diagnosis pancreatitis choledocholithiasis elevated liver enzymes elevated bilirubin type 2 diabetes CKD hypertension atrial fibrillation pancytopenia obesity DS: Discharge Diagnosis Discharge Diagnosis (1) Pancreatitis: Code(s): K85.90 - Acute pancreatitis without necrosis or infection, unspecified Status: Acute (2) Choledocholithiasis: Code(s): K80.50 - Calculus of bile duct without cholangitis or cholecystitis without obstruction Status: Acute (3) Elevated liver enzymes: Code(s): R74.8 - Abnormal levels of other serum enzymes Status: Acute (4) Elevated bilirubin: Code(s): R17 - Unspecified jaundice Status: Acute (5) Type 2 diabetes mellitus: Qualifiers: Diabetes mellitus complication status: without complication Diabetes mellitus longterm insulin use: without longterm use Qualified Code(s): E11.9 - Type 2 diabetes mellitus without complications Code(s): E11.9 - Type 2 diabetes mellitus without complications Status: Chronic (6) CKD (chronic kidney disease): Code(s): N18.9 - Chronic kidney disease, unspecified Status: Acute (7) Hypertension: Code(s): I10 - Essential (primary) hypertension Status: Chronic (8) Atrial fibrillation: Qualifiers: Atrial fibrillation type: paroxysmal Qualified Code(s): I48.0 - Paroxysmal atrial fibrillation Code(s): I48.91 - Unspecified atrial fibrillation Status: Acute (9) Pancytopenia: Code(s): D61.818 - Other pancytopenia Status: Acute (10) Obesity (BMI 30-39.9): Code(s): E66.9 - Obesity, unspecified Status: Acute DS: Summary Hospital Course Reason for hospitalization: pancreatitis choledocholithiasis elevated liver enzymes elevated bilirubin type 2 diabetes CKD hypertension atrial fibrillation pancytopenia obesity Hospital Course: 78-year-old male with past medical history of hypertension, hyperlipidemia, diabetes history of DVT on Xarelto, pancytopenia follows Dr. Benoit, atrial fibrillation on anticoagulation, COPD on intermittent O2 supplementation (2.5 L NC), and CKD presents to the ED for abnormal CT. Per chart review, patient had labs drawn on 07/12 which showed a elevated total bili and LFTs. He was then sent for a CT abdomen on 08/02 which showed choledocholithiasis with intra and extra hepatic ductal or ductal dilation and likely secondary acute interstitial pancreatitis. CT also showed prominent ground glass opacity at the root of the mesentery with mesenteric, hepatic, periportal and portacaval lymphadenopathy which could be inflammatory/reactive in etiology although differential would include facet disease or lymphoma. Patients PCP Dr. Cespedes advised patient to go to the ER, however patient did not go to ER and instead waited for appointment with Dr. Wright. Patient reported to the hospital from Dr. Caal, General surgery office for further evaluation of choledocholithiasis on imaging and elevated liver enzymes on labs from outside facility and Dr. Wright sent him to the ED. On admission patient Tot bili 3.3, AST 55, ALT 63, Alk phos 488 (07/11/24 tot bili 4.3, AST 71, ALT 69, alk phos 553). Lipase 301. Abdomen US showed hyperechoic enlarged pancreas, possibility of pancreatitis cannot be excluded, slightly prominent pancreatic duct, slightly dilated CBD with no definite stones seen. Started on rocephin and flagyl IV in the ED. GI consulted. ERCP performed on 08/[address] Armstrong, see report. Following the procedure patient returned to his room and has no complaints. He was able to eat a low fat diet, tolerating it well. Prior to discharge discussed patient with GI, Dr. Armstrong and he stated okay to discharge at that time without antibiotics. Will have patient obtain a CMP in 3 days to reevaluate LFTs and follow up with Dr. Armstrong outpatient. Patient d
== END 2024-08-08 16:00 | disposition home or self-care (01) | DRG 439 ==
LOC: ANHED 11:35 → ANH3MEDSUR 12:08
PROVIDERS: Internal Medicine Gastroenterology; Admitting Provider Internal Medicine; Emergency Provider Emergency Medicine; PCP Family Medicine; Visit Provider Student in an Organized Health Care Education/Training Program
PROC: 0FC98ZZ Extirpation of Matter from Common Bile Duct, Via Natural or Artificial Opening Endoscopic (ICD-10-PCS; CPT 43260; principal; 2024-08-08 11:30)
DX: K85.10 Biliary acute pancreatitis without necrosis or infection (principal); D61.818 Other pancytopenia; K91.86 Retained cholelithiasis following cholecystectomy; H34.9 Unspecified retinal vascular occlusion; I48.20 Chronic atrial fibrillation, unspecified; I12.9 Hypertensive chronic kidney disease with stage 1 through stage 4 chronic kidney disease, or unspecified chronic kidney disease; N18.31 Chronic kidney disease, stage 3a; E11.22 Type 2 diabetes mellitus with diabetic chronic kidney disease; E78.5 Hyperlipidemia, unspecified; J44.9 Chronic obstructive pulmonary disease, unspecified; K22.719 Barrett's esophagus with dysplasia, unspecified; K21.9 Gastro-esophageal reflux disease without esophagitis; M54.50 Low back pain, unspecified; G89.29 Other chronic pain; Z86.010 Personal history of colon polyps; Z86.718 Personal history of other venous thrombosis and embolism; Z79.01 Long term (current) use of anticoagulants; Z87.891 Personal history of nicotine dependence; Z99.81 Dependence on supplemental oxygen
CPT/HCPCS: 36415; 74329; 76705; 80053; 81001; 82948; 83605; 83690; 83735; 85025; 85610; 85730; 87040; 93005; 96360; 96361; 99285; A9270; J0330; J0696; J1100; J1596; J1836; J2405; J2704; J7030; J7120; Q9966

== ENCOUNTER 2024-11-16 09:41 | Outpatient (CLI) | payer MEDICARE, BC, SELFPAY ==
--- NOTE | ~2024-11-16 | XR_ITS ---
Clinical Indication: Cough PA and lateral views of the chest: Comparison: 05/23/2024 Findings: The lungs are clear, without evidence of focal consolidation or pleural effusion. Cardiome diastinal silhouette is within normal limits. Bones and soft tissues are unremarkable. Impression: Normal chest. Reviewed, dictated and finalized at location . [facility] Impression: Normal chest.
== END 2024-11-16 09:42 | disposition home or self-care (01) ==
PROVIDERS: PCP Family Medicine; Visit Provider Family Medicine
DX: R05.3 Chronic cough (principal)
CPT/HCPCS: 71046